=== PATIENT | female | born 1995 | race African-American/Black ===

== ENCOUNTER → 2019-02-08 | Outpatient (REF) | payer OTHER ==
[~2019-02-08] MED LIST: LEVO200T4
== END ==
LOC: M LAB REF 17:25
PROVIDERS: ATTEND Physician Assistant
DX: J02.9 Acute pharyngitis, unspecified (principal)

== ENCOUNTER 2019-02-09 00:38 | Emergency (ER) | payer OTHER ==
[~2019-02-09] VITALS: Ht 180.3 cm; Wt 168.5 kg
[2019-02-09] MEDS ORDERED: LEVO200T4 (00:53)
[2019-02-09 01:17] LABS: BASO % 0.4 % (0.0-1.0); HEMATOCRIT 39.3 % (36.0-47.0); HEMOGLOBIN 12.9 g/dl (12.0-15.5); LYMPH # 0.9 10^3/uL (1.5-6.5); LYMPH % 16.4 % (24.0-44.0); MEAN CORPUSCULAR HEMOGLOBIN 29.7 pg (27.0-33.0); MEAN CORPUSCULAR HGB CONC 32.8 g/dl (32.0-36.5); MEAN CORPUSCULAR VOLUME 90.6 fl (80.0-96.0); MONO # 0.4 10^3/uL (0.0-0.8); MONO % 7.4 % (0.0-5.0); NEUTROPHILS # 4.3 10^3/uL (1.8-7.7); NEUTROPHILS % 75.4 % (36.0-66.0); PLATELET COUNT, AUTOMATED 297 10^3/uL (150-450); RED BLOOD COUNT 4.34 10^6/uL (4.00-5.40); WHITE BLOOD COUNT 5.7 10^3/uL (4.0-10.0)
[2019-02-09 01:32] LABS: PROTHROMBIN TIME 13.3 SECONDS (12.1-14.4)
[2019-02-09 01:39] LABS: ALBUMIN 3.4 GM/DL (3.2-5.2); ALT/SGPT 16 U/L (12-78); BILIRUBIN,DIRECT < 0.1 MG/DL (0.0-0.2); BILIRUBIN,TOTAL 0.2 MG/DL (0.2-1.0); BLOOD UREA NITROGEN 8 MG/DL (7-18); CALCIUM LEVEL 8.1 MG/DL (8.5-10.1); CARBON DIOXIDE LEVEL 22 MEQ/L (21-32); CHLORIDE LEVEL 110 MEQ/L (98-107); CREATININE FOR GFR 0.57 MG/DL (0.55-1.30); GLOMERULAR FILTRATION RATE > 60.0 (>60); GLUCOSE, FASTING 116 MG/DL (70-100); POTASSIUM SERUM 4.1 MEQ/L (3.5-5.1); SODIUM LEVEL 140 MEQ/L (136-145)
[2019-02-09 01:40] LABS: ACETAMINOPHEN LEVEL < 2.0 UG/ML (10.0-30.0)
[2019-02-09] MEDS ORDERED: LACTULOSE 20 GM/30 ML SYRUP UD PO ONE (01:45)
[2019-02-09 02:43] VITALS: BP 158/86
== END 2019-02-09 02:45 | disposition home or self-care (01) ==
LOC: M ED 00:38
DX: T39.1X1A Poisoning by 4-Aminophenol derivatives, accidental (unintentional), initial encounter (principal); E66.9 Obesity, unspecified; E03.9 Hypothyroidism, unspecified; X58.XXXA Exposure to other specified factors, initial encounter; Y93.9 Activity, unspecified; Y92.9 Unspecified place or not applicable; Y99.9 Unspecified external cause status; Z79.899 Other long term (current) drug therapy
CPT/HCPCS: 36415; 80048; 80076; 82140; 85025; 85610; 85730; 99284; G0480

== ENCOUNTER 2019-03-10 19:41 | Emergency (ER) | payer OTHER ==
[~2019-03-10] VITALS: Ht 182.9 cm; Wt 168.2 kg
[2019-03-10] MEDS ORDERED: OYST1TAB PO (19:47)
[2019-03-10 21:15] LABS: BASO # 0.1 10^3/uL (0.0-0.2); EOS # 0.3 10^3/uL (0.0-0.50); EOS % 4.2 % (0.0-3.0); HEMATOCRIT 41.4 % (36.0-47.0); HEMOGLOBIN 13.7 g/dl (12.0-15.5); LYMPH # 3.3 10^3/uL (1.5-6.5); LYMPH % 46.1 % (24.0-44.0); MEAN CORPUSCULAR HEMOGLOBIN 29.6 pg (27.0-33.0); MEAN CORPUSCULAR HGB CONC 33.1 g/dl (32.0-36.5); MEAN CORPUSCULAR VOLUME 89.4 fl (80.0-96.0); MONO # 0.5 10^3/uL (0.0-0.8); MONO % 6.7 % (0.0-5.0); NEUTROPHILS % 41.9 % (36.0-66.0); PLATELET COUNT, AUTOMATED 310 10^3/uL (150-450); RED BLOOD COUNT 4.63 10^6/uL (4.00-5.40); WHITE BLOOD COUNT 7.1 10^3/uL (4.0-10.0)
[2019-03-10 21:54] LABS: BLOOD UREA NITROGEN 9 MG/DL (7-18); CALCIUM LEVEL 8.6 MG/DL (8.5-10.1); CARBON DIOXIDE LEVEL 24 MEQ/L (21-32); CHLORIDE LEVEL 107 MEQ/L (98-107); CREATININE FOR GFR 0.85 MG/DL (0.55-1.30); FREE T3 1.7 PG/ML (2.2-4.0); FREE T4 0.58 NG/DL (0.76-1.46); GLOMERULAR FILTRATION RATE > 60.0 (>60); GLUCOSE, FASTING 88 MG/DL (70-100); POTASSIUM SERUM 4.2 MEQ/L (3.5-5.1); SODIUM LEVEL 138 MEQ/L (136-145); THYROXINE (T4) 5.4 UG/DL (4.5-12.0)
[2019-03-10] MEDS ORDERED: ISOVUE-370 76% 100ML VIAL (Q9967) As Ordered ONE (21:58)
--- NOTE | 2019-03-10 22:39 | REPVR ---
EXAM: CT Neck With Contrast EXAM DATE/TIME: 03/10/2019 10:06 PM CLINICAL HISTORY: 24 years old, female; Other: Paresthesia right ue; Additional info: Paresthesia right ue, thyroidectomy 11/2018 TECHNIQUE: Imaging protocol: Axial computed tomography images of the neck with intravenous contrast. Coronal and sagittal reformatted images were created and reviewed. Radiation optimization: All CT scans at this facility use at least one of these dose optimization techniques: automated exposure control; mA and/or kV adjustment per patient size (includes targeted exams where dose is matched to clinical indication); or iterative reconstruction. Contrast material: ISOVUE 370; Contrast volume: 75 ml; Contrast route: IV COMPARISON: No relevant prior studies available. FINDINGS: Exam is limited due to patient body habitus and resultant poor resolution. No focal subcutaneous soft tissue swelling. Parapharyngeal and posterior nasopharynx soft tissue planes are symmetric. No asymmetric enlargement or inflammation of the pharyngeal tonsils. Vascular structures of the neck enhance normally. Prominent bilateral cervical chain and jugulodigastric lymph nodes. Muscles of mastication and strap muscles of the neck appear normal. Parotid and minor salivary glands are unremarkable. Floor of the mouth and tongue base soft tissues appear normal. Laryngeal structures appear normal. Thyroid gland is diminutive consistent with surgical history. Lung apices are normal. Bony structures are unremarkable for age. IMPRESSION: No explanation for paresthesias. No inflammatory process. Prominent cervical chain lymph nodes that are nonspecific but could represent cervical lymphadenitis. No suppurative node Electronically signed by: Nasim Rios On 03/10/2019 22:39:17 PM
[2019-03-10 23:23] VITALS: BP 148/68
[2019-03-12 09:49] LABS: TOTAL T3 54.9 NG/DL (60.0-181.0)
== END 2019-03-10 23:23 | disposition home or self-care (01) ==
LOC: M ED 19:41
DX: R94.6 Abnormal results of thyroid function studies (principal); R20.2 Paresthesia of skin; Z90.89 Acquired absence of other organs; E89.0 Postprocedural hypothyroidism; Z88.1 Allergy status to other antibiotic agents; Z79.899 Other long term (current) drug therapy
CPT/HCPCS: 70491; 80048; 83605; 83970; 84439; 84443; 84481; 84702; 85025; 99284; Q9967

== ENCOUNTER 2019-05-01 00:53 | Emergency (ER) | payer OTHER ==
[~2019-05-01 00:53] MED LIST changes: +OYST1TAB PO
[2019-05-01 01:24] LABS: BASO # 0.1 10^3/uL (0.0-0.2); BASO % 1.1 % (0.0-1.0); EOS # 0.2 10^3/uL (0.0-0.50); EOS % 3.5 % (0.0-3.0); HEMATOCRIT 39.5 % (36.0-47.0); HEMOGLOBIN 12.9 g/dl (12.0-15.5); LYMPH # 2.7 10^3/uL (1.5-6.5); LYMPH % 41.7 % (24.0-44.0); MEAN CORPUSCULAR HEMOGLOBIN 29.9 pg (27.0-33.0); MEAN CORPUSCULAR HGB CONC 32.7 g/dl (32.0-36.5); MEAN CORPUSCULAR VOLUME 91.6 fl (80.0-96.0); MONO # 0.4 10^3/uL (0.0-0.8); MONO % 6.6 % (0.0-5.0); NEUTROPHILS # 3.1 10^3/uL (1.8-7.7); NEUTROPHILS % 47.1 % (36.0-66.0); PLATELET COUNT, AUTOMATED 270 10^3/uL (150-450); RED BLOOD COUNT 4.31 10^6/uL (4.00-5.40); WHITE BLOOD COUNT 6.5 10^3/uL (4.0-10.0)
[2019-05-01 02:03] LABS: BLOOD UREA NITROGEN 9 MG/DL (7-18); CALCIUM LEVEL 8.1 MG/DL (8.5-10.1); CARBON DIOXIDE LEVEL 27 MEQ/L (21-32); CHLORIDE LEVEL 109 MEQ/L (98-107); CREATININE FOR GFR 0.97 MG/DL (0.55-1.30); GLOMERULAR FILTRATION RATE > 60.0 (>60); GLUCOSE, FASTING 97 MG/DL (70-100); HCG, SERUM QUANTITATIVE < 1.0 MIU/ML; POTASSIUM SERUM 5.2 MEQ/L (3.5-5.1); SODIUM LEVEL 138 MEQ/L (136-145)
[2019-05-01] MEDS ORDERED: METAL LOCK LOOP XX ONE (03:37)
[2019-05-01 03:48] LABS: CK-MB VALUE MASS 1.7 NG/ML (<3.6); CPK CREATINE PHOSPHOKINASE 330 U/L (26-192); MB/CK RELATIVE INDEX 0.52 (< OR =4); TROPONIN I < 0.02 NG/ML (< 0.10)
[2019-05-01 04:17] VITALS: BP 111/62
--- NOTE | 2019-05-01 07:21 | REP ---
Portable chest, 02:29 a.m., single AP view with the the patient upright: There are no comparisons. The lung pathak are clear. The cardiac size is normal. The thony, mediastinum, and skeletal structures are unremarkable. Impression: Negative portable chest. Electronically Signed by Choco Ladd MD 05/01/2019 07:13 A
--- NOTE | 2019-05-01 10:35 | ECGEPIP ---
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
[2019-08-21] MEDS ORDERED: LEVO112T2 PO (22:24)
[2019-08-22] MEDS ORDERED: OMEP40CA97 PO (05:49)
== END 2019-05-01 04:18 | disposition home or self-care (01) ==
LOC: M ED 00:53
DX: R07.89 Other chest pain (principal); R06.02 Shortness of breath; E89.0 Postprocedural hypothyroidism; Z88.1 Allergy status to other antibiotic agents; Z79.899 Other long term (current) drug therapy
CPT/HCPCS: 71045; 80048; 82550; 82553; 84439; 84443; 84484; 84702; 85025; 93005; 99284; G0463

== ENCOUNTER → 2019-06-06 | Outpatient (CLI) | payer OTHER ==
[~2019-06-06] MED LIST changes: +B-122500 PO; +FLIN1CHW PO; +LEVO112T2 PO; +OMEP40CA97 PO
[2019-06-06 13:44] LABS: BASO # 0.1 10^3/uL (0.0-0.2); BASO % 0.9 % (0.0-1.0); EOS # 0.2 10^3/uL (0.0-0.5); EOS % 3.9 % (0.0-3.0); HEMATOCRIT 38.2 % (36.0-47.0); HEMOGLOBIN 12.5 g/dl (12.0-15.5); LYMPH # 2.2 10^3/uL (1.5-5.0); LYMPH % 41.2 % (24.0-44.0); MEAN CORPUSCULAR HEMOGLOBIN 29.6 pg (27.0-33.0); MEAN CORPUSCULAR HGB CONC 32.7 g/dl (32.0-36.5); MEAN CORPUSCULAR VOLUME 90.3 fl (80.0-96.0); MONO # 0.4 10^3/uL (0.0-0.8); MONO % 8.3 % (0.0-5.0); NEUTROPHILS # 2.4 10^3/uL (1.5-8.5); NEUTROPHILS % 45.7 % (36.0-66.0); PLATELET COUNT, AUTOMATED 313 10^3/uL (150-450); RED BLOOD COUNT 4.23 10^6/uL (4.00-5.40); WHITE BLOOD COUNT 5.3 10^3/uL (4.0-10.0)
[2019-06-06 14:35] LABS: ALBUMIN 3.4 GM/DL (3.2-5.2); ALT/SGPT 14 U/L (12-78); BILIRUBIN,TOTAL 0.3 MG/DL (0.2-1.0); BLOOD UREA NITROGEN 8 MG/DL (7-18); CARBON DIOXIDE LEVEL 22 MEQ/L (21-32); CHLORIDE LEVEL 108 MEQ/L (98-107); CREATININE FOR GFR 0.92 MG/DL (0.55-1.30); GLOMERULAR FILTRATION RATE > 60.0 (>60); GLUCOSE, FASTING 82 MG/DL (70-100); POTASSIUM SERUM 4.6 MEQ/L (3.5-5.1); SODIUM LEVEL 140 MEQ/L (136-145); TOTAL PROTEIN 7.2 GM/DL (6.4-8.2)
[2019-06-06 14:44] LABS: HEMOGLOBIN A1c 4.8 %
== END ==
LOC: M WUC 09:40
PROVIDERS: ATTEND Surgery
DX: Z01.812 Encounter for preprocedural laboratory examination (principal)

== ENCOUNTER 2019-08-05 00:13 | Emergency (ER) | payer OTHER ==
[~2019-08-05] VITALS: Ht 182.9 cm; Wt 165.4 kg
[~2019-08-05 00:13] MED LIST changes: -B-122500 PO; -FLIN1CHW PO; -LEVO112T2 PO; -OMEP40CA97 PO
[2019-08-05] MEDS ORDERED: B-122500 PO (00:18)
[2019-08-05] MEDS ORDERED: FLIN1CHW PO (00:18)
[2019-08-05 01:13] LABS: BASO # 0.1 10^3/uL (0.0-0.2); EOS # 0.2 10^3/uL (0.0-0.5); EOS % 4.3 % (0.0-3.0); HEMATOCRIT 41.6 % (36.0-47.0); HEMOGLOBIN 13.3 g/dl (12.0-15.5); LYMPH # 2.8 10^3/uL (1.5-5.0); LYMPH % 54.7 % (24.0-44.0); MEAN CORPUSCULAR HEMOGLOBIN 29.2 pg (27.0-33.0); MEAN CORPUSCULAR VOLUME 91.2 fl (80.0-96.0); MONO # 0.2 10^3/uL (0.0-0.8); MONO % 4.3 % (0.0-5.0); NEUTROPHILS # 1.8 10^3/uL (1.5-8.5); NEUTROPHILS % 35.7 % (36.0-66.0); PLATELET COUNT, AUTOMATED 314 10^3/uL (150-450); RED BLOOD COUNT 4.56 10^6/uL (4.00-5.40); WHITE BLOOD COUNT 5.1 10^3/uL (4.0-10.0)
[2019-08-05 01:31] LABS: HCG, SERUM QUALITATIVE NEGATIVE (NEGATIVE)
[2019-08-05 01:32] LABS: ALBUMIN 3.4 GM/DL (3.2-5.2); ALT/SGPT 19 U/L (12-78); AMYLASE 55 U/L (25-115); BILIRUBIN,DIRECT < 0.1 MG/DL (0.0-0.2); BILIRUBIN,TOTAL 0.2 MG/DL (0.2-1.0); BLOOD UREA NITROGEN 10 MG/DL (7-18); CALCIUM LEVEL 7.9 MG/DL (8.5-10.1); CARBON DIOXIDE LEVEL 23 MEQ/L (21-32); CHLORIDE LEVEL 111 MEQ/L (98-107); CREATININE FOR GFR 0.72 MG/DL (0.55-1.30); GLOMERULAR FILTRATION RATE > 60.0 (>60); GLUCOSE, FASTING 104 MG/DL (70-100); LIPASE 91 U/L (73-393); POTASSIUM SERUM 3.8 MEQ/L (3.5-5.1); SODIUM LEVEL 142 MEQ/L (136-145); TOTAL PROTEIN 7.4 GM/DL (6.4-8.2)
[2019-08-05] MEDS ORDERED: ONDANSETRON 4MG/2ML VIAL (J2405) As Ordered ONE (02:01)
[2019-08-05] MEDS ORDERED: MORPHINE 4 MG/ML 1ML VIAL/SYRINGE (J2270) As Ordered ONE ×2 (02:02→03:43)
[2019-08-05] MEDS: ONDANSETRON 4MG/2ML VIAL (J2405) IV ONE (02:06)
[2019-08-05] MEDS: MORPHINE 4 MG/ML 1ML VIAL/SYRINGE (J2270) IV ONE ×2 (02:06→04:05)
[2019-08-05] MEDS ORDERED: ISOVUE-370 76% 100ML VIAL (Q9967) As Ordered ONE (02:12)
--- NOTE | 2019-08-05 03:22 | REPVR ---
PROCEDURE INFORMATION: Exam: CT Abdomen And Pelvis With Contrast Exam date and time: 08/05/2019 2:26 AM Age: 24 years old Clinical history: Abdominal pain; Localized; Right; Additional info: R pain with kehr's sign TECHNIQUE: Imaging protocol: Computed tomography of the abdomen and pelvis with intravenous contrast. Radiation optimization: All CT scans at this facility use at least one of these dose optimization techniques: automated exposure control; mA and/or kV adjustment per patient size (includes targeted exams where dose is matched to clinical indication); or iterative reconstruction. Contrast material: ISOVUE 370; Contrast volume: 100 ml; Contrast route: IV; COMPARISON: No relevant prior studies available. FINDINGS: Liver: Normal. No mass. Gallbladder and bile ducts: Normal. No calcified stones. No ductal dilation. Pancreas: Normal. No ductal dilation. Spleen: Normal. No splenomegaly. Adrenals: Normal. No mass. Kidneys and ureters: Normal. No hydronephrosis. Stomach and bowel: Changes from prior bariatric surgery are noted. No small bowel structure or inflammatory process.There is mild colonic diverticulosis without evidence of diverticulitis. Appendix: No evidence of appendicitis. Intraperitoneal space: Several foci of pneumoperitoneum are noted in the upper abdomen, mainly in the left upper quadrant. Mild free fluid in the pelvis. No loculated abscess is seen. Trace perihepatic free fluid extending into the left pericolic gutter. Mild stranding and edema in the upper abdominal mesentery. Vasculature: Unremarkable. No abdominal aortic aneurysm. Lymph nodes: Unremarkable. No enlarged lymph nodes. Bladder: Unremarkable as visualized. Reproductive: Unremarkable as visualized. Bones/joints: Unremarkable. No acute fracture. Soft tissues: Unremarkable. IMPRESSION: 1. Mild pneumoperitoneum and mild free fluid of uncertain etiology. A definite perforation or source of pneumoperitoneum is not identified. No drainable abscess. 2. Colonic diverticulosis without evidence of diverticulitis. 3. Changes of prior bariatric surgery. No bowel obstruction or inflammatory process. THIS REPORT CONTAINS FINDINGS THAT MAY BE CRITICAL TO PATIENT CARE. The findings were verbally communicated via telephone conference with LES GREENE at 3:21 AM EST on 08/05/2019. The findings were acknowledged and understood. Electronically signed by: Silverio Larkin On 08/05/2019 03:21:56 AM
[2019-08-05] MEDS ORDERED: METOCLOPRAMIDE INJ 10MG/2ML VIAL (J2765) As Ordered ONE (03:43)
[2019-08-05] MEDS: METOCLOPRAMIDE INJ 10MG/2ML VIAL (J2765) IV ONE (03:50)
[2019-08-05] MEDS: CIPROFLOXACIN 400 MG in IV 1 EA IV ONE (04:10)
[2019-08-05] MEDS: metroNIDAZOLE 500 MG in IV 1 EA IV ONE (04:10)
[2019-08-05 04:43] LABS: APPEARANCE, URINE CLEAR (CLEAR); BACTERIA, URINE AUTO NEGATIVE (NEGATIVE); BILIRUBIN, URINE AUTO NEGATIVE (NEGATIVE); BLOOD, URINE BLOOD 1+ (NEGATIVE); COLOR, URINE YELLOW (YELLOW); GLUCOSE, URINE (UA) AUTO NEGATIVE (NEGATIVE); KETONE, URINE AUTO TRACE mg/dL (NEGATIVE); LEUKOCYTE ESTERASE, URINE AUTO NEGATIVE (NEGATIVE); NITRITE, URINE AUTO NEGATIVE (NEGATIVE); PROTEIN, URINE AUTO NEGATIVE (NEGATIVE); RBC, URINE AUTO 2 /HPF (0-3); SPECIFIC GRAVITY URINE AUTO 1.043 (1.002-1.035); SQUAMOUS EPITHELIAL CELL UR AU 2 /HPF (0-6); UROBILINOGEN, URINE AUTO 0.2 mg/dL (0.0-2.0); WBC, URINE AUTO 2 /HPF (0-3)
[2019-08-05] MEDS: ACETAMINOPHEN 500 MG TAB PO ONE (05:00)
[2019-08-05 05:26] VITALS: BP 133/78
== END 2019-08-05 05:29 | disposition short-term general hospital (02) ==
LOC: M ED 00:13
DX: K66.8 Other specified disorders of peritoneum (principal); J95.89 Other postprocedural complications and disorders of respiratory system, not elsewhere classified; R10.9 Unspecified abdominal pain; E03.9 Hypothyroidism, unspecified; Z79.890 Hormone replacement therapy; Z79.899 Other long term (current) drug therapy; Z98.0 Intestinal bypass and anastomosis status; Z88.1 Allergy status to other antibiotic agents
CPT/HCPCS: 74177; 80053; 81001; 82150; 82248; 83690; 84703; 85025; 87086; 99284; J0744; J2270; J2405; J2765; Q9967

== ENCOUNTER 2019-09-21 22:41 | Emergency (ER) | payer OTHER ==
[~2019-09-21] VITALS: Ht 180.3 cm; Wt 163.7 kg
[~2019-09-21 22:41] MED LIST changes: +B-122500 PO; +FLIN1CHW PO; +LEVO112T2 PO; +OMEP40CA97 PO
[2019-09-21 23:49] VITALS: BP 141/82
== END 2019-09-21 23:51 | disposition home or self-care (01) ==
LOC: M ED 22:41
DX: F33.9 Major depressive disorder, recurrent, unspecified (principal); E03.9 Hypothyroidism, unspecified; Z79.899 Other long term (current) drug therapy; Z79.890 Hormone replacement therapy; Z88.1 Allergy status to other antibiotic agents

== ENCOUNTER → 2019-10-25 | Outpatient (CLI) | payer OTHER ==
[2019-10-25 20:33] LABS: FREE T4 1.17 NG/DL (0.76-1.46); THYROID STIMULATING HORMONE 7.07 uIU/ML (0.358-3.740)
== END ==
LOC: M WUC 15:50
PROVIDERS: ATTEND Physician Assistant
DX: E89.0 Postprocedural hypothyroidism (principal)

== ENCOUNTER → 2020-03-13 | Outpatient (CLI) | payer OTHER ==
[2020-03-13 16:34] LABS: HCG, SERUM QUALITATIVE POSITIVE (NEGATIVE)
== END ==
LOC: M WUC 10:48
PROVIDERS: ATTEND Student in an Organized Health Care Education/Training Program
DX: O20.0 Threatened abortion (principal)

== ENCOUNTER 2020-10-27 21:05 | Emergency (ER) | payer OTHER ==
[~2020-10-27] VITALS: Ht 180.3 cm; Wt 167.5 kg
--- OUTSIDE RECORDS SUMMARY | 2020-10-27 21:17 | CCD ---
Author Author [facility] Organization [facility] Address Unknown Phone Unavailable Care Team Providers Care Associate Account Manager Name Role Phone ScnishaoMaxby PA Unavailable Unavailable Scordo, M Pretty PA Unavailable Unavailable Scordo, M Pretty PA Unavailable Unavailable Scordo, M Pretty PA Unavailable Unavailable Scordo, M Pretty PA Unavailable Unavailable Scordo, M Pretty PA Unavailable Unavailable Scordo, M Pretty PA Unavailable Unavailable Scordo, M Pretty PA Unavailable Unavailable Scordo, M Pretty PA Unavailable Unavailable Scordo, M Pretty PA Unavailable Unavailable Scordo, M Pretty PA Unavailable Unavailable Scordo, M Pretty PA Unavailable Unavailable Scordo, M Pretty PA Unavailable Unavailable Scordo, M Pretty PA Unavailable Unavailable Scordo, M Pretty PA Unavailable Unavailable Scordo, M Pretty PA Unavailable Unavailable Scordo, M Pretty PA Unavailable Unavailable Scordo, M Pretty PA Unavailable Unavailable Scordo, M Pretty PA Unavailable Unavailable Scordo, M Pretty PA Unavailable Unavailable Scordo, M Pretty PA Unavailable Unavailable Scordo, M Pretty PA Unavailable Unavailable Scordo, M Pretty PA Unavailable Unavailable Scordo, M Pretty PA Unavailable Unavailable Scordo, M Pretty PA Unavailable Unavailable Scordo, M Pretty PA Unavailable Unavailable Scordo, M Pretty PA Unavailable Unavailable Scordo, M Pretty PA Unavailable Unavailable Scordo, M Pretty PA Unavailable Unavailable Scordo, M Pretty PA Unavailable Unavailable Scordo, M Pretty PA Unavailable Unavailable Scordo, M Pretty PA Unavailable Unavailable Scordo, M Pretty PA Unavailable Unavailable Scordo, M Pretty PA Unavailable Unavailable Scordo, M Pretty PA Unavailable Unavailable Scordo, M Pretty PA Unavailable Unavailable Scordo, M Pretty PA Unavailable Unavailable Scordo, M Pretty PA Unavailable Unavailable Scordo, M Pretty PA Unavailable Unavailable Scordo, M Pretty PA Unavailable Unavailable Scordo, M Pretty PA Unavailable Unavailable Scordo, M Pretty PA Unavailable Unavailable Scordo, M Pretty PA Unavailable Unavailable Platt, R Vimal PA Unavailable Unavailable Platt, R Vimal PA Unavailable Platt, R Vimal PA Unavailable Platt, R Vimal PA Unavailable Platt, R Vimal PA Unavailable Platt, R Vimal PA Unavailable Platt, R Vimal PA Unavailable Platt, R Vimal PA Unavailable Platt, R Vimal PA Unavailable MARAVEANALI, Alden CAN MD Unavailable Unavailable MARAVEGIASAlden MD Unavailable Unavailable MARAVEGIAAlden Melo MD Unavailable Unavailable MARAVEGIAAlden Melo MD Unavailable Unavailable MARAVEGIAAlden Melo MD Unavailable Unavailable MARAVEGIAAlden Melo MD Unavailable Unavailable MARAVEGIAAlden Melo MD Unavailable Unavailable MARAVEGIAAlden Melo MD Unavailable Unavailable MARAVEAlden BRIONES MD Unavailable Unavailable MARAVEAlden BRIONES MD Unavailable Unavailable MARAVEAlden BRIONES MD Unavailable Unavailable MARAVEGIAAlden Melo MD Unavailable Unavailable MARAVEGIAAlden Melo MD Unavailable Unavailable MARAVEAlden BRIONES MD Unavailable Unavailable Alon, Ralph PA Unavailable Unavailable PHYSICIAN, PHYSICIAN ER Unavailable Unavailable Fredis, F Juan PA Unavailable Unavailable Fredis, F Juan PA Unavailable Unavailable Hill Af[place], F Juan PA Unavailable Unavailable Fredis, F Juan PA Unavailable Unavailable Fredis, F Juan PA Unavailable Unavailable Fredis, F Juan PA Unavailable Unavailable [place], F Juan PA Unavailable Unavailable Fredis, F Juan PA Unavailable Unavailable [place], F Juan PA Unavailable Unavailable [place], F Juan PA Unavailable Unavailable ALON, RALPH PA Unavailable Unavailable ALON, RALPH PA Unavailable Unavailable ALON, RALPH PA Unavailable Unavailable ALON, RALPH PA Unavailable Unavailable ALON, RALPH PA Unavailable Unavailable ALON, RALPH PA Unavailable Unavailable ALON, RALPH PA Unavailable Unavailable ENO, C ONIEL VASQUEZ Unavailable Unavailable NEO, C ONIEL VASQUEZ Unavailable Unavailable NEO, C ONIEL VASQUEZ Unavailable Unavailable NEO, C ONIEL VASQUEZ Unavailable Unavailable NEO, C ONIEL VASQUEZ Unavailable Unavailable NEO, C ONIEL VASQUEZ Unavailable Unavailable NEO, C ONIEL VASQUEZ Unavailable Unavailable NEO, C ONIEL VASQUEZ Unavailable Unavailable NEO, C ONIEL VASQUEZ Unavailable Unavailable NEO, C ONIEL VASQUEZ Unavailable Unavailable NEO, C ONIEL VASQUEZ Unavailable Unavailable NEO, C ONIEL VASQUEZ Unavailable Unavailable NEO, C ONIEL VASQUEZ Unavailable Unavailable NEO, C ONIEL VASQUEZ Unavailable Unavailable NEO, C ONIEL VASQUEZ Unavailable Unavailable NEO, C ONIEL VASQUEZ Unavailable Unavailable NEO, C ONIEL VASQUEZ Unavailable Unavailable NEO, C ONIEL VASQUEZ Unavailable Unavailable NEO, C ONIEL VASQUEZ Unavailable Unavailable NEO, C ONIEL VASQUEZ Unavailable Unavailable NEO, C OINEL VASQUEZ Unavailable Unavailable NEO, C ONIEL VASQUEZ Unavailable Unavailable NEO, C ONIEL VASQUEZ Unavailable Unavailable NEO, C ONIEL VASQUEZ Unavailable Unavailable NEO, C ONIEL VASQUEZ Unavailable Unavailable NEO, C ONIEL VASQUEZ Unavailable Unavailable NEO, C ONIEL VASQUEZ Unavailable Unavailable NEO, C ONIEL VASQUEZ Unavailable Unavailable NEO, C ONIEL VASQUEZ Unavailable Unavailable NEO, C ONIEL VASQUEZ Unavailable Unavailable NEO, C ONIEL VASQUEZ Unavailable Unavailable NEO, C ONIEL VASQUEZ Unavailable Unavailable NEO, C ONIEL VASQUEZ Unavailable Unavailable NEO, C ONIEL VASQUEZ Unavailable Unavailable NEO, C ONIEL VASQUEZ Unavailable Unavailable NEO, C ONIEL VASQUEZ Unavailable Unavailable NEO, C ONIEL VASQUEZ Unavailable Unavailable NEO, C ONIEL VASQUEZ Unavailable Unavailable NEO, C ONIEL VASQUEZ Unavailable Unavailable NEO, C ONIEL VASQUEZ Unavailable Unavailable NEO, C ONIEL VASQUEZ Unavailable Unavailable NEO, C ONIEL VASQUEZ Unavailable Unavailable NEO, C ONIEL VASQUEZ Unavailable Unavailable NEO, C ONIEL VAQSUEZ Unavailable Unavailable NEO, C ONIEL VASQUEZ Unavailable Unavailable NEO, C ONIEL VASQUEZ Unavailable Unavailable NEO, C ONEIL VASQUEZ Unavailable Unavailable NEO, C ONIEL VASQUEZ Unavailable Unavailable NEO, C ONIEL VASQUEZ Unavailable Unavailable NEO, C ONIEL VASQUEZ Unavailable Unavailable NEO, C ONIEL VASQUEZ Unavailable Unavailable NEO, C ONIEL VASQUEZ Unavailable Unavailable NEO, C ONIEL VASQUEZ Unavailable Unavailable NEO, C ONIEL VASQUEZ Unavailable Unavailable NEO, C ONIEL VASQUEZ Unavailable Unavailable NEO, C ONIEL VASQUEZ Unavailable Unavailable NEO, C ONIEL VASQUEZ Unavailable Unavailable NEO, C ONIEL VASQUEZ Unavailable Unavailable NEO, C ONIEL VASQUEZ Unavailable Unavailable NEO, C ONIEL VASQUEZ Unavailable Unavailable PHYSICIAN, ER Unavailable Unavailable DAMION, TERESA Unavailable Unavailable GILCHRIEST, JANES Unavailable Unavailable GILCHRIEST, JANES Unavailable Unavailable Scordo, M Pretty PA Unavailable Unavailable Scordo, M Pretty PA Unavailable Unavailable Scordo, M Pretty PA Unavailable Unavailable Scordo, M Pretty PA Unavailable Unavailable Scordo, M Pretty PA Unavailable Unavailable Scordo, M Pretty PA Unavailable Unavailable Scordo, M Pretty PA Unavailable Unavailable Scordo, M Pretty PA Unavailable Unavailable Scordo, M Pretty PA Unavailable Unavailable Scordo, M Pretty PA Unavailable Unavailable Scordo, M Pretty PA Unavailable Unavailable Scordo, M Pretty PA Unavailable Unavailable Scordo, M Pretty PA Unavailable Unavailable Scordo, M Pretty PA Unavailable Unavailable Scordo, M Pretty PA Unavailable Unavailable Scordo, M Pretty PA Unavailable Unavailable Scordo, M Pretty PA Unavailable Unavailable Scordo, M Pretty PA Unavailable Unavailable Scordo, M Pretty PA Unavailable Unavailable Scordo, M Pretty PA Unavailable Unavailable Scordo, M Pretty PA Unavailable Unavailable Scordo, M Pretty PA Unavailable Unavailable Scordo, M Pretty PA Unavailable Unavailable Scordo, M Pretty PA Unavailable Unavailable Scordo, M Pretty PA Unavailable Unavailable Scordo, M Pretty PA Unavailable Unavailable Scordo, M Pretty PA Unavailable Unavailable Scordo, M Pretty PA Unavailable Unavailable Scordo, M Pretty PA Unavailable Unavailable Scordo, M Pretty PA Unavailable Unavailable Scordo, M Pretty PA Unavailable Unavailable Scordo, M Pretty PA Unavailable Unavailable Scordo, M Pretty PA Unavailable Unavailable Scordo, M Pretty PA Unavailable Unavailable Scordo, M Pretty PA Unavailable Unavailable Scordo, M Pretty PA Unavailable Unavailable Scordo, M Pretty PA Unavailable Unavailable Scordo, M Pretty PA Unavailable Unavailable Scordo, M Pretty PA Unavailable Unavailable Scordo, M Pretty PA Unavailable Unavailable Scordo, M Pretty PA Unavailable Unavailable Scordo, M Pretty PA Unavailable Unavailable Scordo, M Pretty PA Unavailable Unavailable TURRIN, JULIA Unavailable Unavailable TURRIN, JULIA Unavailable Unavailable TURRIN, JULIA Unavailable Unavailable TURRIN, JULIA Unavailable Unavailable FLORY, A MISAEL PA Unavailable Unavailable FLORY, A MISAEL PA Unavailable Unavailable FLORY, A MISAEL PA Unavailable Unavailable FLORY, A MISAEL PA Unavailable Unavailable FLORY, A MISAEL PA Unavailable Unavailable FLORY, A MISAEL PA Unavailable Unavailable FLORY, A MISAEL PA Unavailable Unavailable FLORY, A MISAEL PA Unavailable Unavailable FLORY, A MISAEL PA Unavailable Unavailable FLORY, A MISAEL PA Unavailable Unavailable FLORY, A MISAEL PA Unavailable Unavailable FLORY, A MISAEL PA Unavailable Unavailable FLORY, A MISAEL PA Unavailable Unavailable BROWN, L MOISES Unavailable Unavailable CONNOR, ANITA Unavailable Unavailable Re-disclosure Warning The records that you are about to access may contain information from federally-assisted alcohol or drug abuse programs. If such information is present, then the following federally mandated warning applies: This information has been disclosed to you from records protected by federal confidentiality rules (42 CFR part 2). The federal rules prohibit you from making any further disclosure of this information unless further disclosure is expressly permitted by the written consent of the person to whom it pertains or as otherwise permitted by 42 CFR part 2. A general authorization for the release of medical or other information is NOT sufficient for this purpose. The Federal rules restrict any use of the information to criminally investigate or prosecute any alcohol or drug abuse patient.The records that you are about to access may contain highly sensitive health information, the redisclosure of which is protected by Article 27-F of the [facility] Public Health law. If you continue you may have access to information: Regarding HIV / AIDS; Provided by facilities licensed or operated by the [facility] Office of Mental Health; or Provided by the [facility] Office for People With Developmental Disabilities. If such information is present, then the following [facility] mandated warning applies: This information has been disclosed to you from confidential records which are protected by state law. State law prohibits you from making any further disclosure of this information without the specific written consent of the person to whom it pertains, or as otherwise permitted by law. Any unauthorized further disclosure in violation of state law may result in a fine or long term sentence or both. A general authorization for the release of medical or other information is NOT sufficient authorization for further disc losure. Allergies and Adverse Reactions Type Description Substance Reaction Status Data Source(s ) Drug allergy Drug allergy cephalexin (From Keflex) [facility] Drug allergy Drug allergy No Known Allergies [facility] Family History Family Member Name Family Member Gender Family Member Status Date o f Status Description Data Source(s) Unknown Unknown Problem [facility] Encounters Encounter Providers Location Date Indications Data Source(s ) Emergency Attender: JULIA LOFTONConsultant: Pretty Rodgers 04/02/2020 08:56:00 PM EDT - 04/03/2020 01:23:00 AM EDT [facility] Patient discharged. Outpatient CPSCAORT-LABEJN 03/21/2020 09:38:00 AM EDT [facility] Emergency Attender: Vimal Platt PAAttender: Vimal TURNER ED-ED 03/20/2020 09:26:00 PM EDT - 03/21/2020 01:01:00 AM EDT RT SIDE PAIN [facility] RT SIDE PAIN Patient discharged. Emergency Attender: ER PHYSICIAN 03/16/2020 07:35:59 PM E DT [facility] Emergency Attender: JANES Concepcionender: ER PHYSICIAN 03/16/2020 06:23:00 PM EDT - 03/16/2020 09:56:00 PM EDT OVARIAN CYST PAIN [facility] OVARIAN CYST PAIN Patient discharged. Emergency Attender: ER PHYSICIAN 03/16/2020 06:23:00 PM E DT [facility] Emergency Attender: Ralph Martinez tender: RALPH CHI PAReferrer: ONIEL LARSON MD ED-ED 03/06/2020 07:57:00 PM EDT - 03/06/2020 10:28:00 PM EDT PAIN FROM CYST [facility] PAIN FROM CYST Patient discharged. Emergency Attender: Vimal Salterender: Vimal TURNER ED-ED 03/02/2020 10:09:00 AM EDT - 03/02/2020 02:13:00 PM EDT PREGRANT/ CRAMPING,SOME BLEEDIN [facility] PREGRANT/ CRAMPING,SOME BLEEDIN Patient discharged. Outpatient Attender: MISAEL TURNER CPSCAORT-LABEJN 12/04 02:44:00 PM EDT B34.9 [facility] B34.9 Emergency Attender: MISAEL TURNER ED-ED 12/04 11:27:00 AM EDT - 12/05/2019 12:38:00 PM EDT SORE THROAT,COUGH,EAR PAIN [facility] SORE THROAT,COUGH,EAR PAIN Patient discharged. Emergency Attender: Juan TURNER ED-ED 11:27:00 AM EDT - 11/28/2019 01:55:00 PM EDT PASSED CLOTS [facility] PASSED CLOTS Patient discharged. Outpatient Attender: ANITA CONNOR 10/29/2019 03:00:00 PM [facility] Outpatient Attender: Pretty TURNER Main Office 10/25/2019 02:15:00 PM EST [facility] Emergency Attender: JUAN JOSÉ DAY MD ED-ED 0 10/11/2019 02:59:00 PM EST - 10/11/2019 03:33:00 PM EST L CALF LAC [facility] L CALF LAC Patient discharged. Outpatient Attender: MOISES SILVA 10/11/2019 09:04:00 AM [facility] Outpatient Attender: MOISES SILVA 10/04/2019 09:03:00 AM [facility] Outpatient Attender: ANITA CONNOR 10/01/2019 12:14:00 PM [facility] Outpatient Attender: TERESA DAMION 09/28/2019 03:00:00 PM [facility] Medications Medication Brand Name Start Date Product Form Dose Route Admi nistrative Instructions Pharmacy Instructions Status Indications Reaction Description Data Source(s) pantoprazole 40 MG Delayed Release Oral Tablet PANTOPRAZOLE SODIUM 04/03/2020 12:00:00 AM EDT tablet,delayed release (DR/EC) 30 T BREA ONE TABLET BY MOUTH EVERY DAY TAKE ONE TABLET BY MOUTH EVERY DAY SOLD: 04/04/2020 [facility] 1 gram 04/03/2020 12:00:00 AM EDT tablet 28 TAKE ONE TABLET BY MOUTH FOUR TIMES A DAY TAKE ONE TABLET BY MOUTH FOUR TIMES A DAY SOLD: 04/04/2020 [facility] 4 mg 03/21/2020 12:00:00 AM EDT tablet,disintegrating 4 0 DISSOLVE ONE TABLET ON TONGUE EVERY 6 HOURS DISSOLVE ONE TABLET ON TONGUE EVERY 6 HOURS SOLD: 03/21/2020 [facility] 500 mg 03/21/2020 12:00:00 AM EDT tablet 20 TAKE ONE TABLET BY MOUTH TWICE A DAY FOR 10 DAYS TAKE ONE TABLET BY MOUTH TWICE A DAY FOR 10 DAYS SOLD: 03/21/2020 [facility] Misoprostol 0.2 MG Oral Tablet misoprostol (CYTOTEC) 2 00 MCG tablet misoprostol (CYTOTEC) 200 MCG tablet 08/11/2019 12:00:00 AM EST 200 ug Oral active Take 1 tablet (200 mcg total) by mouth 4 (four) times a day [facility] Sucralfate 1000 MG Oral Tablet sucralfate (CARAFATE) 1 g tablet sucralfate (CARAFATE) 1 g tablet 08/11/2019 12:00:00 AM EST 1 g Oral active Take 1 tablet (1 g total) by mouth 4 (four) times a day [facility] pantoprazole 40 MG Delayed Release Oral Tablet pantoprazole (PROTONIX) 40 MG tablet pantoprazole (PROTONIX) 40 MG tablet 08/11/2019 12:00:00 AM EST 40 mg Oral active Take 1 tablet (40 mg total) by mouth 2 (two) times a day [facility] Multiple Vitamins-Iron (MULTIVITAMIN WITH IRON) TABS 0904-05 31-60 06/26/2019 12:00:00 AM EDT 2 {tbl} Oral active Take 2 tablets by mouth daily [facility] Insurance Providers Payer name Policy type / Coverage type Policy ID Covered democrat ID Covered democrat's relationship to henderson Policy [place] Plan Information [facility] [id number] SP [id number] [facility] [id number] 18 [id number] [facility] [id number] S [id number] HEA [id number] SP [id number] [facility] [id number] S [id number] [facility] [id number] S [id number] [facility] [id number] Spo [id number] [facility] [id number] [facility] [id number] SP [id number] [facility] O [id number] S [id number] [facility] PLAN U [id number] Se lf [id number] [facility] U [id number] Se lf [id number] [facility] [id number] SP [id number] [facility] Commercial [id number] Self [id number] [facility] Commercial [id number] Self [id number] [facility] Commercial [id number] Self 00 [id number] [facility] Commercial [id number] Self [id number] Problems, Conditions, and Diagnoses Code Display Name Description Problem Type Effective Dates Data Source(s) E039 Hypothyroidism, unspecified Hypothyroidism, unspecifie d Diagnosis 04/02/2020 08:56:00 PM EDT [facility] K2970 Gastritis, unspecified, without bleeding Gastritis, unspecified, without bleeding Diagnosis 04/02/2020 08:56:00 PM EDT [facility] R109 Unspecified abdominal pain Unspecified abdominal pain Diagnosis 04/02/2020 08:56:00 PM EDT [facility] F33.9 Major depressive disorder, recurrent, un specified MAJOR DEPRESSIVE DISORDER, RECURRENT, UNSPECIFIED Diagnosis 10/04/2019 09:03:00 AM [facility] F32.9 Major depressive disorder, single episod e, unspecified MAJOR DEPRESSIVE DISORDER, SINGLE EPISODE, UNSPECIFIED Diagnosis 09/28/2019 03:00:00 PM [facility] Surgeries/Procedures Procedure Description Date Indications Data Source(s) CT ABDOEN & PELVIS W/CONTRAST MATERIAL 03/20/2020 12:0 0:[address] [facility] Low osmolar contrast material, 300-399 mg/ml iodine concentr ation, per ml 03/20/2020 12:00:[address] [facility] CULTURE BACTERIAL BLOOD AEROBIC W/ID ISOLATES 03/20/20 20 12:00:[address] [facility] COLLECTION VENOUS BLOOD VENIPUNCTURE 03/20/2020 12:00: [address] [facility] BLOOD COUNT COMPLETE AUTO&AUTO DIFRNTL WBC COUNT 03/20 12:00:[address] [facility] AMYLASE 03/20/2020 12:00:00 AM [facility] LACTATE 03/20/2020 12:00:00 AM [facility] LIPASE 03/20/2020 12:00:00 AM [facility] COMPREHENSIVE METABOLIC PANEL 03/20/2020 12:00:00 AM E [facility] Injection, ondansetron hydrochloride, per 1 mg 12:00:[address] [facility] Injection, morphine sulfate, up to 10 mg 03/20/2020 12 :00:[address] [facility] US UTERUS LIMITED 1/> FETUSES 03/02/2020 12:0 0:[address] [facility] URNLS DIP STICK/TABLET REAGENT AUTO MICROSCOPY 12:00:[address] [facility] GONADOTROPIN CHORIONIC QUANTITATIVE 03/02/2020 12:00:[address] [facility] URINE TEST VISUAL COLOR CMPRSN METHS 12:00:[address] [facility] US PREG UTERUS REAL TIME W/IMAGE DCMTN TRANSVAG 2019 12:00:[address] [facility] URNLS DIP STICK/TABLET RGNT AUTO W/O MICROSCOPY 2019 12:00:00 AM EDT [facility] Non-covered item or service 11/28/2019 12:00:[address] [facility] EMERGENCY DEPARTMENT VISIT HIGH/URGENT SEVERITY 2019 12:00:[address] [facility] Results ID Date Data Source [id number] 04/02/2020 08:56:00 PM EDT [facility] 1 OrderSheet [facility] Emergency Department [address] [place] [address] Phone #: ext- [phone] 04/02/2020 20:43 Patient: TRAVIS MCCLELLAN Sex: F : 1995 Age: 25yWEIGHT:158.7 kg (S) HEIGHT:60 inches (S) BMI:68.3ALLERGIES: KeflexCHIEF COMPLAINT: abdominal painDIAGNOSIS: GastritisLAB ORDERSOrder Description Priority Entered Acknowledged InitialedCBC w Diff STAT 21:16 04/02/2020 21:26 Rolly Gerardo Riccardo Robert R.N. M.D.;CMP STAT 21:04/02/2020 21:26 Rolly Gerardo Riccardo Robert R.N. M.D.;Lipase STAT 21:04/02/2020 21:26 Rolly Gerardo Riccardo Robert R.N. M.D.;Urinalysis (Clean STAT 21:16 04/02/2020 21:26 Fiordaliza Gerardo Riccardo Robert R.N. M.D.;Lactic Acid STAT 21:04/02/2020 21:26 Rolly Gerardo Riccardo Robert R.N. M.D.;HCG Serum Qual STAT 21:17 04/02/2020 21:26 Rolly Gerardo Riccardo Robert R.N. M.D.;DIAGNOSTIC STUDY ORDERSOrder Description Priority Entered Acknowledged InitialedCT Abd PEL W/ IV STAT 22:04/02/2020 23:52 Zoss, AprilContrast Only Julia Lofton R.N.(Oxygen?(No)) M.DLaura;(IV?(Yes)) Reason for Study: RUQ pain, Hx gallstones, s/p gastric bypassUS Gall Bladder STAT 22:32 04/02/2020 00:16 04/03/2020(Oxygen?(No)) Julia Lofton, December R.NLaura MThomas; Reason for Study: History of Gallstones, Nausea w Vomiting, RUQ Pain 2 OrderSheet [facility] Emergency Department [address] [place] [address] Phone #: [phone]- [phone] 04/02/2020 20:43 Patient: TRAVIS MCCLELLAN Sex: F : 1995 Age: 25yMEDICATION/IV/DRIP/FLUID ORDERSOrder Description Priority Entered Acknowledged InitialedPhenergan 25 mg 21:19 04/02/2020 22:32 Akinin 50 mL NS, give Julia Lofton R.N.wide open: 25 mg M.D.;(NOW x1, HIGHALERTMEDICATION)NS IV 1000 mL 21:19 04/02/2020 22:32 Akin,Bolus: : Bolus 1000 Raynerin, Julia Frank R.N.mL (X1) M.D.;Pepcid IVPB 20 21:19 04/02/2020 22:34 Akin,mg/50mL (NOW x1, Turrin, Julia Zac R.N.Infuse over 30 M.D.;minutes.)Protonix IVPB 40 21:19 04/02/2020 22:37 Akin,mg with Dextrose RaynerinJulia R.N.100 ml spike bag M.D.;(D5W)Dilaudid IVP 1 mg 22:30 04/02/2020 22:42 Akin(HIGH ALERT Turrin, Julia Zac R.N.MEDICATION) Cathi;GI Cocktail PO 50 00:31 04/03/2020 00:50 Akin,Xi with Lidocaine Julia Lofton M.D.;Mouth/Throat 10mL, Maalox Oral 30mL, Oral10 mLGENERAL ORDERSOrder Description Priority Entered Acknowledged InitialedNPO 21:16 04/02/2020 21:23 Rolly Gerardo Riccardo Robert R.N. M.D.;Saline Lock 21:16 04/02/2020 22:34 Rolly Gerardo Riccardo Robert R.N. M.D.;[Electronically signed by Bianca Maher R.N. (:04/03/2020)][Electronically signed by Julia Lofton M.D. (01:39 04/03/2020)][Electronically locked by Bianca Maher R.N. (04/03/2020)] Name Value Range Interpretation Code Description Data Judith rce(s) Supporting Document(s) ID Date Data Source [id number] 04/02/2020 08:56:00 PM EDT [facility] 1 Medication Reconciliation Report [facility] Emergency Department [address] [place] [address] Phone #: ovn- [phone] 04/02/2020 20:43 Patient: TRAVIS MCCLELLAN Sex: F : 1995 Age: 25yWeight: 158.7 kgHeight/Length: 60 in.BMI: 68.3ALLERGIES: KeflexThe patient's Home Medications are listed below:CONTINUE TAKING THE FOLLOWING MEDICATIONS: Synthroid 224mcg dailyThe source(s) of the original Home Medication information:patientThe following Medications were given to the patient in the Emergency Department:Phenergan [IVPB] IVPB bolus 0, then 25 mg 200 mL/hr, administered: 04/02/2020 10:32:00 PMNS [IV] IV Fluids bolus 1000 mL wide open, administered: 04/02/2020 10:32:00 PMPepcid [IVPB] IVPB bolus 0, then 20 mg 200 mL/hr, administered: 04/02/2020 10:34:00 PMProtonix [IVPB] IVPB bolus 0, then 40 mg 400 mL/hr, administered: 04/02/2020 10:25:00 PMDilaudid [IVP] IVP 1 mg, administered: 04/02/2020 10:42:00 PMGI Cocktail [PO] PO 50 mL, administered: 04/03/2020 12:50:00 AMThe following Medications were prescribed to the patient:Carafate 1 gram tablet Take 1 tablet four times a day for 7 days -- Dispense 28 tablet. Refills: 0.Substitution permitted.[facility] [address] [place] [address]. .Protonix 40 mg tablet,delayed release Take 1 tablet once a day for 30 days -- Dispense 30 tablet.Refills: 1. Substitution permitted.[facility] [address] [place] [phone]. Phone: [phone] Medication Reconciliation Report [facility] Emergency Department [address] [place] [address] Phone #: ext- [phone] 04/02/2020 20:43 Patient: TRAVIS MCCLELLAN Sex: F : 1995 Age: [id number] . -- Julia Lofton M.D. Name Value Range Interpretation Code Description Data Judith rce(s) Supporting Document(s) ID Date Data Source [id number] 04/02/2020 08:56:00 PM EDT [facility] 1 Medication Administration Record [facility] Emergency Department [address] [place] [address] Phone #: ext- [phone] 04/02/2020 20:43 Patient: TRAVIS MCCLELLAN Sex: F : 1995 Age: 25yWeight: 158.7 kgHeight/Length: 60 inBMI: 68.3ALLERGIES: Keflex Date/Time Medication Administered Medication OrderedStart PHENERGAN [IVPB] Phenergan 25 mg in 50 mL NS,22:32 04/02/2020 Dose: 25 mg IVPB give wide open: 25 mg (NOW x1,Zac Gerardo R.N. Rate: 200 mL/hr over 15 minute(s) HIGH ALERT MEDICATION)---- Dispensed: 50 mL bagStop Site: #1 right AC23:00 04/02/2020[facility]Start NS [IV] NS IV 1000 mL Bolus: : Bolus 163407:32 04/02/2020 Dose: IV Fluids mL (X1)Zac Gerrado R.N. Bolus: 1000 mL wide open---- Dispensed: 1000 mL bagStop Site: #1 right AC23:40 04/03/2020Bianca R.N.Start PEPCID [IVPB] Pepcid IVPB 20 mg/50mL (NOW22:34 04/02/2020 Dose: 20 mg IVPB x1, Infuse over 30 minutes.)Zac Gerardo R.N. Rate: 200 mL/hr over 15 minute(s)---- Dispensed: 50 mL bagStop Site: #1 right AC23:00 04/02/2020Bianca Maher R.N.Start PROTONIX [IVPB] (PANTOPRAZOLE Protonix IVPB 40 mg with22:25 04/02/2020 SODIUM) Dextrose 100 ml spike bag (D5W)Zac Gerardo R.N. Dose: 40 mg IVPB---- Rate: 400 mL/hr over 15 minute(s)Stop Dispensed: 100 mL bag00:20 04/03/2020 Site: #1 right ACZossBianca R.N.Given DILAUDID [IVP] (HYDROMORPHONE Dilaudid IVP 1 mg (HIGH ALERT22:42 04/02/2020 HCL) MEDICATION)Zac Gerardo R.N. Dose: 1 mg IVP Site: #1 right ACGiven GI COCKTAIL [PO] (CALCIUM GI Cocktail PO 50 mL with00:50 04/03/2020 CARBONATE ANTACID) Lidocaine Viscous Mouth/ThroatZac Gerardo R.N. Dose: 50 mL Oral Suspe nsion PO 10 mL, Maalox Oral 30 mL, Oral 10 mL Name Value Range Interpretation Code Description Data Judith rce(s) Supporting Document(s) ID Date Data Source [id number] 04/02/2020 08:56:00 PM EDT [facility] 1 General Instructions [facility] Emergency Department [address] [place] [address] Phone #: ext- [phone] 04/02/2020 20:43 Patient: TRAVIS MCCLELLAN Sex: F : 1995 Age: 25yAcute gastritis. No alcoholic gastritis or hemorrhagic gastritis.Rule out anastomotic ulcer.INSTRUCTIONSDrink plenty of fluids. Avoid alcohol and NSAIDS. NSAIDS include aspirin, ibuprofen (Advil) and naproxen(Aleve). Avoid fatty, fried/greasy, lactose-containing (such as milk, cheese and ice cream), salty and spicyfoods. No alcohol. Do not smoke.(PLEASE CONTACT YOUR GASTRIC SURGEON TODAY TO SEE IF HE WANTS TO REPEAT THEUPPER ENDOSCOPY TO RULE OUT ULCER).Warnings: Further evaluation is necessary. It is very important to follow up with a healthcare provider.GENERAL WARNINGS: Return or contact your physician immediately if your condition worsens orchanges unexpe ctedly, if not improving as expected, or if other problems arise. SPECIFICALLY, return ifyou develop pain in the abdomen, pelvis or back, fever, vomiting, the inability to keep fluids down, blood invomitus, blood in diarrhea, fainting or lightheadedness.Your Current Medications: Your current home medications have been reviewed.CONTINUE TAKING THE FOLLOWING MEDICATIONS:Synthroid 224mcg daily*.Prescription Medications:Carafate 1 gram tablet Take 1 tablet four times a day for 7 days -- Dispense 28 tablet. Refills: 0.Substitution permitted.[facility] [address] [place] [address] [id number]. .Protonix 40 mg tablet,delayed release Take 1 tablet once a day for 30 days -- Dispense 30 tablet.Refills: 1. Substitution permitted.[facility] [address] - [address] [place] [address] [phone]. .Follow-up:Return to the emergency department as needed. Follow up with a surgeon tomorrow even if well. Call rossy appointment. Reason for referral: evaluation and treatment. Summary of care provided to patient viapaper.Understanding of the discharge instructions verbalized by patient. Expected course of illness, discharge 2 General Instructions [facility] Emergency Department [address] [place] [address] Phone #: ext- [phone] 04/02/2020 20:43 Patient: TRAVIS MCCLELLAN Sex: F : 1995 Age: 25yinstructions, activity level, diet, prescriptions x2, follow-up appointment and risks and benefits of treatmentreviewed with patient and understanding verbalized. Agrees to plan of care. ADDITIONAL INFORMATIONGastritis or Ulcer, No Antibiotic TreatmentGastritis is irritation and inflammation of the stomach lining. This means the lining is red and swollen.It can cause shallow sores in the stomach lining called erosions. An ulcer is a deeper open sore in thelining of the stomach. It may also occur in the first part of the small intestine (duodenum). The causesand symptoms of orquidea ritis and ulcers are very similar.Causes and risk factors for both problems can include: Long-term use of nonsteroidal anti-inflammatory drugs (NSAIDs), such as aspirin and ibuprofen H. pylori bacteria infection Tobacco use Alcohol use Certain other conditions such as immune disorders, certain medicines (high-dose iron supplements) and street drugs (such as cocaine)Symptoms for both problems can include: 3 General Instructions [facility] Emergency Department [address] [place] [address] Phone #: ext- [phone] 04/02/2020 20:43 Patient: TRAVIS MCCLELLAN Sex: F : 1995 Age: 25y Dull or burning pain in the upper part of the belly Loss of appetite Heartburn or upset stomach Frequent burping Bloated feeling Nausea with or without vomitingYou likely had an evaluation to help find the exact cause and extent of your problem. This may haveincluded a health history, exam, and certain tests.Results showed that your problem is not due to H. pylori infection. For this reason, you don't needantibiotics as part of your t reatment.Whether your problem is gastritis or an ulcer, you will still need to take other medicines, however. Youwill also need to follow instructions to help reduce stomach irritation so your stomach can heal.Home care Take any medicines you're prescribed exactly as directed. Common medicines used to treat gastritis include: o Antacids. These help neutralize the normal acids in your stomach. o Proton pump inhibitors. These block your stomach from making any acid. o H2 blockers. These reduce the amount of acid your stomach makes. o Bismuth subsalicylate. This helps protect the lining of your stomach from acid. Don't take any NSAIDs during your treatment. If you take NSAID to help treat other health problems, tell your healthcare provider. He or she may need to adjust your medicine plan or change the dosage. Don't use tobacco. Also don't drink alcohol. These products can increase the amount of acid your stomach makes. This can delay healing. It can also worsen symptoms.Follow-up careFollow up with your healthcare provider, or as advised. In some cases, more testing may be needed.When to seek medical adviceCall your healthcare provider right away if any of these occur: 4 General Instructions [facility] Emergency Department [address] [place] [address] Phone #: ext- [phone] 04/02/2020 20:43 Patient: TRAVIS MCCLELLAN Sex: F : 1995 Age: 25y Fever of 100.4F (38C) or higher, or as directed by your healthcare provider Stomach pain that worsens or moves to the lower right part of belly Extreme fatigue Weakness or dizziness Continued weight loss Frequent vomiting, blood in your vomit, or coffee ground-like substance in your vomit Black, tarry, or bloody stoolsCall 911Call 911 if any of these occur: Chest pain appears or worsens, or spreads to the back, neck, shoulder, or arm Unusually fast heart rate Trouble breathing or swallowing Confusion Extreme drowsiness or trouble waking up Fainting Large amounts of blood present in vomit or stool [id number] [employer]. [address] [place], [place] [id number]. All rights reserved. This information is not intended as asubstitute for professional medical care. Always follow your healthcare professional's instructions. You have been given the following additional information: Gastritis or Ulcer (No Antibiotic Treatment)(Electronically signed by Julia Lofton M.D. 04/03/2020 01:39) Name Value Range Interpretation Code Description Data Judith rce(s) Supporting Document(s) ID Date Data Source [id number] 04/02/2020 08:56:00 PM EDT [facility] 1 Clinical Report - Nurses [facility] Emergency Department [address] [place] [address] Phone #: ext- [phone] 04/02/2020 20:43 Patient: TRAVIS MCCLELLAN Sex: F : 1995 Age: 25yTRIAGEArrived by private vehicle.Acuity: LEVEL 3.Chief Complaint: ABDOMINAL PAIN.Alert. No acute distress.Worsened while eating. Symptoms are intermittent and still present (3 days ago). She has had nausea,vomiting, diarrhea and abdominal pain. 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 Sepsis Screen negative. No suspected or confirmed signs ofinfection present. --20:57 04/02/20 Zac Gerardo R.N.20:45 04/02/20. BP: 133/77. MAP: 95. HR: 91. RR: 17. O2 saturation: 97%. Temp: 98.1 F. Pain level now:03/21. --20:57 04/02/20 Zac Gerardo R.N.Weight: 158.7 kg stated. Height/Length: 60 inches Per Patient. BMI: 68.3. --20:55 04/02/20 Zac Gerardo R.N.MedicationsSynthroid 224mcg daily. --20:49 04/02/20 Zac Gerardo R.N.AllergiesKeflex. --20:49 04/02/20 Zac Gerardo R.N.PROBLEMS:Obesity.Hypothy roidism. --21:35 04/02/20 Julia Lofton M.D.The following entry was modified by Julia Lofton M.D., 21:35 04/02/20Obesity. --20:50 04/02/20 Zac Gerardo R.N.The following entry was modified by Julia Lofton M.D., 21:35 04/02/20Hypothyroidism. --20:50 04/02/20 Zac Gerardo R.N..Medication/allergy information source: the patient. --20:57 04/02/20 Zac Gerardo R.N.ADDITIONAL SURGERIES:. 2 Clinical Report - Nurses [facility] Emergency Department [address] [place] [address] Phone #: ext- [phone] 04/02/2020 20:43 Patient: TRAVIS MCCLELLAN Sex: F : 1995 Age: 25y Dental Surgery. Knee Surgery. --20:52 04/02/20 Zac Gerardo R.N. History PAST MEDICAL HX: Gallstones. Peptic ulcer disease. Immunizations: up-to-date. Last normal menstrual period was 2 weeks ago. Sexual history - sexually active. Uses condoms. SOCIAL HX: Never smoker. Smoker- current status unknown. She was offered HIV testing but declined. Patient education was provided. She was offered hepatitis C testing but declined. Patient education was provided. She has not traveled outside the [place] Infectious disease exposure: The patient was not exposed to chicken pox, measles, mumps, meningitis, staph, strep, mono, C- diff, MRSA, VRE, CRE, influenza, Viktor flu, H1N1 flu, Hepatitis A, B and C, Coronavirus, MERS, SARS, tuberculosis, Ebola, HIV, Typhoid or Zika. SELF HARM ASSESSMENT: Self harm assessment was performed. The patient answered "no" to the question(s) "Have you recently felt down, depressed, or hopeless?", "Do you have thoughts of harming or killing yourself?", "Do you have a plan for harming or killing yourself?", "Have you recently had thoughts about harming or killing others?", "Do you have any dangerous items in your possession?", "Have you noticed less interest or pleasure in doing things?", "Are you here because you tried to hurt yourself?" and "Have you ever tried to hurt yourself before today?". ABUSE ASSESSMENT: Abuse assessment. Abuse denied. No suspicion of abuse. NUTRITIONAL RISK ASSESSMENT: The nutritional risk assessment revealed no deficiencies. FUNCTIONAL ASSESSMENT: Functional assessment: no impairments noted. LEARNING NEEDS ASSESSMENT: The learning needs assessment revealed no barriers. FALL RISK ASSESSMENT: Fall risk assessment completed. No risk factors identified. SKIN INTEGRITY ASSESSMENT: Skin integrity risk assessment completed. No skin integrity risk identified. --20:57 04/02/20 Zac Gerardo R.N. Assessment The patient states feels the same. --20:57 04/02/20 Zac Gerardo R.N.PHYSICAL ASSESSMENTGENERAL / NEURO / PSYCH: Alert. Oriented X 4. Appears in pain and anxious.HEENT: Mucous membranes are pink.RESPIRATORY: Respirations not labored. Breath sounds within normal limits.CVS: Normal sinus rhythm noted. Capillary refill less than 2 seconds.GI / : Abdomen soft and nontender. Bowel sounds within normal limits. Normal genitalia.SKIN: Skin is warm and dry. --20:58 04/02/20 Zac Gerardo R.N. 3 Clinical Report - Nurses [facility] Emergency Department [address] [place] [address] Phone #: ext- [phone] 04/02/2020 20:43 [id number] Sex: F : 1995 Age: 25yNURSING PROGRESS NOTES21:57 04/02/2020 Two (2) unsuccessful IV access attempts including the left antecubital space and wrist.Applied bandaid and pressure dressing. --21:57 04/02/20 Zac Gerardo R.N. 22:20 04/02/2020 Site #1 started via IV in the right antecubital space with an 18g angiocath, with aseptic technique and good blood return; one attempt. Saline lock flushed with 10 mL saline. --22:29 04/02/20 Zac Gerardo R.N. 22:26 04/02/20. BP: 111/67. MAP: 81. HR: 82. RR: 18. O2 saturation: 97%. Pain level now: 04/21. --22:04/02/20 Zac Gerardo R.N. Rounding: Pain: assessed pain level. Position: repositioned. Personal care / toileting: denies toileting needs and mouth care. Proximity of possessions / care items: call light within easy reach. Plug ins: assured IV pump plugged in; checked status of equipment in use; located all cords, tubes, and lines to prevent fall hazard. Set expectations: advised patient of rounding protocol timing and asked if they needed anything else at this time. Two patient identifiers checked. Call light placed in reach. Side rails up x 2. Bed placed in lowest position. Brakes of bed on. --:04/02/20 Zac Gerardo R.N. 22:25 04/02/2020 Started 40 mg of Protonix (Pantoprazole Sodium) IVPB in bag #1 100 mL; at 400 mL/hr over 15 minute(s) via site #1. via IV pump. Allergies verified and confirmed 5 rights. IV patency established. IV site checked: no pain, redness, or swelling. IV flushed thoroughly pre- and post-medication administration. Information reviewed with patient including reason for taking this medication, signs of allergic reaction and precautions. Verbalizes understanding. --22:37 04/02/20 Zac Gerardo R.N. 22:04/02/2020 Started 25 mg of Phenergan IVPB in bag #1 50 mL; at 200 mL/hr over 15 minute(s) via site #1. via IV pump. Allergies verified and confirmed 5 rights. IV patency established. IV site checked: no pain, redness, or swelling. IV flushed thoroughly pre- and post-medication administration. Information reviewed with patient including reason for taking this medication, signs of allergic reaction and precautions. Verbalizes understanding. --:04/02/20 Zac Gerardo R.N. 22:04/02/2020 Started bag #1 1000 mL IV Fluids NS; bolus of 1000 mL wide open then at via site #1 via IV pump. Allergies verified and confirmed 5 rights. IV patency established. IV site checked: no pain, redness, or swelling. IV flushed thoroughly pre- and post-medication administration. Information reviewed with patient including reason for taking this medication, signs of allergic reaction and precautions. Verbalizes understanding. --22:33 04/02/20 Zac Gerardo R.N. 22:34 04/02/2020 Started 20 mg of Pepcid IVPB in bag #1 50 mL; at 200 mL/hr over 15 minute(s) via site #1. via IV pump. Allergies verified and confirmed 5 rights. IV patency established. IV site checked: no pain, redness, or swelling. IV flushed thoroughly pre- and post-medication administration. Information reviewed with patient including reason for taking this medication, signs of allergic reaction and precautions. Verbalizes understanding. --22:34 04/02/20 Zac Gerardo R.N. 22:42 04/02/2020 Dilaudid (HYDROmorphone HCl) IVP 1 mg given over 2 minute(s) via site #1. Allergies verified and confirmed 5 rights. IV patency established. IV site checked: no pa in, redness, or swelling. IV 4 Clinical Report - Nurses [facility] Emergency Department [address] [place] [address] Phone #: ext- [phone] 04/02/2020 20:43 Patient: TRAVIS MCCLELLAN Sex: F : 1995 Age: 25y flushed thoroughly pre- and post-medication administration. Information reviewed with patient including reason for taking this medication, signs of allergic reaction, precautions and sedative warning. Verbalizes understanding. - -22:42 04/02/20 Zac Gerardo R.N. 00:50 04/03/2020 GI Cocktail (Calcium Carbonate Antacid) PO Oral Suspension 50 mL given. Allergies verified and confirmed 5 rights. Information reviewed with patient including reason for taking this medication, signs of allergic reaction and precautions. Verbalizes understanding. --00:51 04/03/20 Zac Gerardo R.N. Reassessment acuity: LEVEL 3. Rounding: Pain: assessed pain level. Position: states comfortable. Personal care / toileting: denies toileting needs and mouth care. Proximity of possessions / care items: call light within easy reach. Plug ins: assured IV p ump plugged in. Set expectations: advised patient of rounding protocol timing and asked if they needed anything else at this time. The patient is calm and resting quietly and has had no adverse reaction. GI / : Abdomen soft and nontender. Bowel sounds within normal limits. SKIN: Skin is warm and dry. Skin color within normal limits. Two patient identifiers checked. Call light placed in reach. Side rails up x 2. Bed placed in lowest position. Brakes of bed on. --00:53 04/03/20 Zac Gerardo R.N. 00:51 04/03/20. BP: 108/58. MAP: 74. HR: 80. RR: 16. O2 saturation: 100%. Temp: 98.2 F. Pain level now: 11/19. --00:53 04/03/20 Zac Gerardo R.N.DISPOSITION / DISCHARGE 23:00 04/02/2020 Pepcid IVPB via IV site #1 Discontinued: bag #1 infused. Total amount infused: 50 mL. IV patency established. IV site checked: no pain, redness, or swelling. IV flushed thoroughly. --01:19 04/03/20 GunnarDecember R.NLaura 23:00 04/02/2020 Phenergan IVPB via IV site #1 Discontinued: bag #1 infused. Total amount infused: 50 mL. IV patency established. IV site checked: no pain, redness, or swelling. IV flushed thoroughly. --01:20 04/03/20 GunnarDecember R.NLaura 00:20 04/03/2020 Protonix IVPB via IV site #1 Discontinued: bag #1 infused. Total amount infused: 100 mL. IV patency established. IV site checked: no pain, redness, or swelling. IV flushed thoroughly. --01:20 04/03/20 GunnarDecember R.NLaura 23:40 04/03/2020 IV Fluids NS via IV site #1 Discontinued: bag #1 infused. Total amount infused: 1000 mL. IV patency established. IV site checked: no pain, redness, or swelling. IV flushed thoroughly. --01:19 04/03/20 Bianca Maher R.N. Condition at departure: improved and stable. No learning barriers present. Discharge instructions provided and reviewed with the patient. Reviewed medication(s). Follow up contact number GI. Patient verbalized understanding. Written instructions provided in Indonesian. The patient was discharged by the physician. She was discharged home. She left ambulatory and via private vehicle. Driving ([facility] 5 Clinical Report - Nurses [facility] Emergency Department [address] [place] [address] Phone #: [phone] 04/02/2020 20:43 Patient: TRAVIS MCCLELLAN Sex: F : 1995 Age: 25y has a lyft ride). --01:23 04/03/20 Bianca Maher R.N. 01:18 04/03/20. BP: 130/75. MAP: 93. HR: 78. RR: 18. O2 saturation: 99%. Temp: 97.8 F. Pain level now: 10/22. --01:23 04/03/20 Bianca Maher R.N.Locked/Released at 04/03/2020 01:23 by Bianca Maher R.N. Name Value Range Interpretation Code Description Data Judith rce(s) Supporting Document(s) ID Date Data Source [id number] 04/02/2020 08:56:00 PM EDT [facility] 1 Clinical Report - Physicians/Mid Levels [facility] Emergency Department [address] [place] [address] Phone #: ext- [phone] 04/02/2020 20:43 Patient: TRAVIS MCCLELLAN Sex: F : 1995 Age: 25y Time Seen: 20:48 04/02/2020; initial patient contact. Arrived- By private vehicle. Historian- patient. Disposition decision: 00:34 04/03/2020.HISTORY OF PRESENT ILLNESS Chief Complaint: ABDOMINAL PAIN. This started 3 days ago and is still present. It was gradual in onset and has been constant. It is described as "pain" and sharp and it is described as located in the epigastric area and in the upper abdomen. At its maximum, severity described as severe and 10 / 10. When seen in the E.D., severity described as severe and 10 / 10. Modifying factors- worsened by movement and food. Not relieved by anything. The patient has had moderate nausea. No loss of appetite. She has had vomiting. The vomiting has occurred several times. No blood-tinged emesis or frankly bloody emesis. She has had diarrhea. This has occurred several times. No bloody diarrhea. (pt is s/p gastric bypass at [facility] then perforated ulcer on ; was dxed w gallstones in 11-[address] [facility]). No recent travel. Similar symptoms previously. Patient has had similar symptoms occasionally. Recent medical care: Not recently seen/assessed.REVIEW OF SYSTEMSNo constipation, black stools, hematemesis, difficulty with urination or pain with urination. No urinaryfrequency, bloody stools, fever, headache or sore throat. No blurred vision, chest pain, difficulty breathing,cough or joint pain. No skin rash, chills or back pain. The patient has not had weight loss. All othersystems reviewed and are negative.PAST HISTORYSee nurses notes. Problems: Obesity. Hypothyroidism. Diverticulosis. Peptic Ulcer Disease. Gallstone(s). Additional Surgeries: . Knee Surgery. Kavon-en-Y gastrojejunostomy [06/25/2019]. Thyroid Surgery. Thyroidectomy. 2 Clinical Report - Physicians/Mid Levels [facility] Emergency Department [address] [place] [address] Phone #: ext- [phone] 04/02/2020 20:43 Patient: TRAVIS MCCLELLAN Sex: F : 1995 Age: 25y Medications: Synthroid 224mcg daily. Allergies: Keflex.SOCIAL HISTORYNever smoker. No alcohol use or drug use.ADDITIONAL NOTESThe nursing notes have been reviewed with agreement regarding the chief complaint, HPI, ROS, PMH andpatient medications and allergies.PHYSICAL EXAMVital Signs: 04/02/2020 20:45 BP: 133/77. MAP: 95. HR: 91. RR: 17. O2 saturation: 97%. Temp: 98.1 F.Pain level now: 03/21. Have been reviewed. Oxygen saturation normal.Appearance: Alert. Oriented X3. Appears to be in pain. Patient in mild distress. Distress appears dueto pain.Eyes: Pupils equal, round and reactive to light. Eyes normal inspection.ENT: Ears normal. Nose normal. Pharynx normal.Neck: Normal inspection. Neck supple.CVS: Normal heart rate and rhythm. Heart sounds normal. Pulses normal.Respiratory: No respiratory distress. Painless inspiration. Breath sounds normal. Chest nontender.Abdomen: Soft. Mild tenderness in the upper abdomen, right upper quadrant and epigastric area. Noguarding or rebound tenderness. Bowel sounds normal. No organomegaly. No mass. Femoral pulsesequal. Moderately obese.Back: Normal inspection. No CVA tenderness.Skin: Skin warm and dry. Normal skin color. No rash. Normal skin turgor.Extremities: Extremities exhibit normal ROM. No lower extremity edema.Neuro: Oriented X 3. No motor deficit. No sensory deficit. Reflexes normal.LABS, X-RAYS, AND EKGAbdominal CT: REPORT SUBMISSION DATE: Apr 02, 2020 11:57:11 PM EDT NAME: TRAVIS MCCLELLAN STUDY INITIATED: Apr 02, 2020 11:14:43 PM EDT STUDY RECEIVED: Apr 02, 2020 11:38:40 PM EDT GENDER: F MODALITY TYPE: CT\\SR : [birth year] DESCRIPTION: CT ABD PELVIS W/ IV ONLY INSTITUTION: [facility] ORDERING PHYSICIAN: Julia Lofton 3 Clinical Report - Physicians/Mid Levels [facility] Emergency Department [address] [place] [address] Phone #: ext- [phone] 04/02/2020 20:43 Patient: TRAVIS MCCLELLAN Sex: F : 1995 Age: 25yPATIENT HISTORY: ruq pain, hx gall stones, s/p gastric bypass. dose 2751.3 mGy*cm (Hx) / CORONAL(DICOM Hx)EXAM: CT Abdomen and Pelvis with IV contrast CLINICAL HISTORY: Ruq pain, hx gall stones, s/p gastric bypass. dose 2751.3 mGy*cmTECHNIQUE: Axial computed tomography images of the abdomen and pelvis with intravenous contrast.CONTRAST: with intravenous contrast. With; Iodine 0COMPARISON: None provided.FINDINGS:LUNG BASES: The lung bases appear clear. No pleural effusions are seen.LIVER: Unremarkable.GALLBLADDER AND BILE DUCTS: The gallbladder appears within normal limits. No radioopaquegallstones are seen. No biliary ductal dilatation is evident.PANCREAS: Unremarkable.SPLEEN: Unremarkable.ADRENAL GLANDS: Unremarkable.KIDNEYS, URETERS, AND BLADDER: The kidneys appear within normal limits. There is nohydronephrosis or hydroureter. No urinary calculi are seen.STOMACH AND BOWEL: Post gastric bypass.APPENDIX: No evidence of acute appendicitis on CT examination.PERITONEUM: No free fluid. No free air.LYMPH NODES: No lymphadenopathy is evident.REPRODUCTIVE: Unremarkable as visualized.VASCULATURE: No evidence of abdominal aortic aneurysm. 4 Clinical Report - Physicians/Mid Levels [facility] Emergency Department [address] [place] [address] Phone #: ext- [phone] 04/02/2020 20:43 Patient: TRAVIS MCCLELLAN Sex: Suzie : 1995 Age: 25yBONES: No aggressive appearing osseous lesion. No acute osseous pathology evident.ImpressionNo acute abnormality identified.Post gastric bypass.Electronically signed on Apr 02, 2020 11:57:11 PM EDT by:Kaushal Givens, [place] [employer]. Study type: abdomen and pelvis. Abdominal CT performedwith IV contrast. The study was interpreted by the radiologist.Abdominal Sonogram: (REPORT SUBMISSION DATE: Apr 02, 2020 11:27:09 PM EDTNAME: TRAVIS MCCLELLAN STUDY INITIATED:Apr 02, 2020 10:52:32 PM EDTMRN: [id number] STUDY RECEIVED:Apr 02, 2020 11:25:10 PM EDTGENDER: F MODALITY TYPE:US\\SRDOB: [birth year] DESCRIPTION: US GALLBLADDERINSTITUTION: [facility] ORDERING PHYSICIAN: ROLLY DUMONTACCESSION #: [id number] HISTORY:EXAM: US Abdomen, Right Upper Quadrant.CLINICAL HISTORY: US GALLBLADDERTECHNIQUE: Right upper quadrant sonography performed with image documentation.COMPARISON: None provided.FINDINGS:LIVER: Within normal limits in size and echogenicity. No mass.GALLBLADDER:. The gallbladder is normal in appearance. No gallstone or wall thickening.COMMON BILE DUCT: No dilation.PANCREAS: The distal pancreas is obscured by bowel gas. The visualized portion of the pancreasappears within normal limits. 5 Clinical Report - Physicians/Mid Levels [facility] Emergency Department [address] [place] [address] Phone #: ext- [phone] 04/02/2020 20:43 Patient: TRAVIS MCCLELLAN Sex: F : 1995 Age: 25yRIGHT KIDNEY: Unremarkable. Normal renal contours. No renal mass or calculus. No hydronephrosis.ImpressionUnremarkable gallbladder.Electronically signed on Apr 02, 2020 11:27:09 PM EDT by:Kaushal Givens, [place] [employer]). Study included the gallbladder. The study was interpreted bythe radiologist.Laboratory Tests: Laboratory tests have been ordered, with results reviewed and considered in themedical decision making process.US Gall Bladder: (TANA: 04/02/2020 22:32) ( MsgRcvd 04/02/2020 23:27) Final resultsUS GALLBLADDERReason(s): History of GallstonesTRANSPORTATION: WC IV? O2? Oxygen?(No) Room: ED Exam GALLBLADDER [facility] [address] [facility] [place] [address] ---------NAME--------- NUMBER SEX AGE ADMIT DISC. XRAY# F/C TYPE GREYCORONADO TRAVIS [id number] F 25 04/02/20 SB2 E/R DATE OF : 1995 M/R# [id number] #: [id number] TR-03 LOCATION: EMERGENCY DEPT TRANSCRIBED: 04/02/20 23:27 IF US GALLBLADDER [id number] COMPLETED:04/02/20 23:27 radha [id number] Reason(s): History of Gallstones Nausea w Vomiting RUQ Pain PHYSICIAN: ROLLY FLORENCIO R A D I O L O G Y R E P O R T PATIENT HISTORY: US GALLBLADDER RUQ PAIN EXAM: US Abdomen, Right Upper Quadrant. CLINICAL HISTORY: US GALLBLADDER TECHNIQUE: Right upper quadrant sonography performed with image documentation. COMPARISON: None provided. FINDINGS: LIVER: Within normal limits in size and echogenicity. No mass. GALLBLADDER:. The gallbladder is normal in appearance. No gallstone or wall thickening. COMMON BILE DUCT: No dilation. PANCREAS: The distal pancreas is obscured by bowel gas. The visualized portion 6 Clinical Report - Physicians/Mid Levels [facility] Emergency Department [address] [place] [address] Phone #: ext- [phone] 04/02/2020 20:43 Patient: TRAVIS MCCLELLAN Sex: F : 1995 Age: 25y of the pancreas appears within normal limits. RIGHT KIDNEY: Unremarkable. Normal renal contours. No renal mass or calculus. No hydronephrosis. IMPRESSIONS: Unremarkable gallbladder. Electronically Signed By: Denys Haywood M.D. , Radiologist Date/Time: 04/02/20 23:27CT Abd PEL W/ IV Contrast Only: (TANA: 04/02/2020 22:27) ( MsgRcvd 04/02/2020 23:57) Finalresults Exam CT ABD //T// PELVIS W/ [place] [address] ---------NAME--------- NUMBER SEX AGE ADMIT DISC. XRAY# F/C TYPE VY ROBLES [id number] F 25 04/02/201994423229 SB2 E/R DATE OF : 1995 M/R# [id number] #: [id number] TR-03 LOCATION: EMERGENCY DEPT TRANSCRIBED: 04/02/20 23:[address] ABD //T// PELVIS W/ IV ONLY [id number] COMPLETED:04/02/20 23:40 [facility] [id number] Reason(s): RUQ pain, Hx gallstones, s/p gastric bypass PHYSICIAN: ROLLY NÚÑEZ R A D I O L O G Y R E P O R T PATIENT HISTORY: ruq pain, hx gall stones, s/p gastric bypass. dose 2751.3 mGy*cm / CORONAL (DICOM Hx) EXAM: CT Abdomen and Pelvis with IV contrast CLINICAL HISTORY: Ruq pain, hx gall stones, s/p gastric bypass. dose 2751.3 mGy*cm TECHNIQUE: Axial computed tomography images of the abdomen and pelvis wi th intravenous contrast. CONTRAST: with intravenous contrast. With; Iodine 0 COMPARISON: None provided. FINDINGS: LUNG BASES: The lung bases appear clear. No pleural effusions are seen. LIVER: Unremarkable. GALLBLADDER AND BILE DUCTS: The gallbladder appears within normal limits. No radioopaque gallstones are seen. No biliary ductal dilatation is evident. PANCREAS: Unremarkable. SPLEEN: Unremarkable. 7 Clinical Report - Physicians/Mid Levels [facility] Emergency Department [address] [place] [address] Phone #: ext- [phone] 04/02/2020 20:43 Patient: TRAVIS MCCLELLAN Sex: F : 1995 Age: 25y ADRENAL GLANDS: Unremarkable. KIDNEYS, URETERS, AND BLADDER: The kidneys appear within normal limits. There is no hydronephrosis or hydroureter. No urinary calculi are seen. STOMACH AND BOWEL: Post gastric bypass. APPENDIX: No evidence of acute appendicitis on CT examination. PERITONEUM: No free fluid. No free air. LYMPH NODES: No lymphadenopathy is evident. REPRODUCTIVE: Unremarkable as visualized. VASCULATURE: No evidence of abdominal aortic an eurysm. BONES: No aggressive appearing osseous lesion. No acute osseous pathology evident. IMPRESSIONS: No acute abnormality identified. Post gastric bypass. While performing the above CT examination, radiation dose reduction was accomplished utilizing automated exposure control, adjusting of the mA and kV based on the patient's body size and/or the use of imperative reconstructive techniques. Electronically Signed By: Denys Haywood M.D. , Radiologist Date/Time: 04/02/20 23:57Beta-HCG, Qual Serum: (TANA: 04/02/2020 21:26) ( MsgRcvd 04/02/2020 21:53) Final results Test Result Flag Units (Reference) HCG SERUM QUAL NEGATIVE (NORMAL: NEGAT HCG SERUM QL REENTER NEGATIVE (NORMAL: NEGAT { KIT LOT # [id number] ){ KIT EXP 06.24.21 ){ PROCEDURAL CONTROL VALID)CBC w Diff: (TANA: 04/02/2020 21:26) ( MsgRcvd 04/02/2020 21:52) Final results Test Result Flag Units (Reference) CBC W/AUTOMATED DIFF COMPLETE BLOOD COUNT WBC 6.1 10/uL (4.2 - 11.0) RBC 4.14 L 10/uL (4.20 - 5.40) HEMOGLOBIN 11.7 L g/dL (12.0 - 16.0) HEMATOCRIT 36.5 L % (37.0 - 47.0) MCV 88.2 fL (81.0 - 101) MCH 28.3 pg (27.0 - 34.0) MCHC 32.1 g/dL (31.0 - 36.0) RDW 12.6 % (11.5 - 14.5) 8 Clinical Report - Physicians/Mid Levels [facility] Emergency Department [address] [place] [address] Phone #: ext- [phone] 04/02/2020 20:43 Patient: TRAVIS MCCLELLAN Sex: F : 1995 Age: 25y PLATELETS 342 10/uL (150 - 450) MPV 10.3 fL (7.4 - 10.4) NEUT 46.8 % (37.0 - 80.0) LYMPH 41.2 H % (25.0 - 40.0) MONO 6.8 % (3.0 - 8.0) EOS 3.9 % (0.0 - 7.0) BASO 1.1 % (0.0 - 2.5) %IG 0.2 H % (0.0 - 0.0) %NRBC 0.0 % (0.0 - 0.0) #NEUT 2.87 10/uL (2.00 - 6.90) #LYMPH 2.53 10/uL (0.60 - 3.40) #MONO 0.42 10/uL (0.00 - 0.90) #EOS 0.24 10/uL (0.00 - 0.70) #BASO 0.07 10/uL (0.00 - 0.20) #IG 0.01 10/uL (0.00 - 0.10) #NRBC 0.00 10/uL (0.00 - 0.00) MANUAL DIFF NOT INDICATED RBC MORPH NOT INDICATEDCMP: (TANA: 04/02/2020 21:26) ( MsgRcvd 04/02/2020 22:00) Final results Test Result Flag Units (Reference) COMPREHENSIVE METABOLIC PANEL COMPREHENSIVE METABOLIC PANEL SODIUM 140 mEq/L (134 - 153) POTASSIUM 4.2 mEq/L (3.6 - 5.0) CHLORIDE 108 H mEq/L (98 - 107) CO2 22 MEQ/L (22 - 30) GLUCOSE 137 H MG/DL (65 - 110) BUN 7 MG/DL (7 - 21) CREATININE 0.8 MG/DL (0.7 - 1.5) BUN/CREAT 9 (8 - 27) TOTAL PROTEIN 7.6 G/DL (6.3 - 8.2) ALBUMIN 4.0 G/DL (3.9 - 5.0) GLOBULIN 3.6 H GM/DL (2.4 - 3.2) A/G RATIO 1.1 (0.8 - 2.0) CALCIUM 8.3 L MG/DL (8.4 - 10.2) TOTAL BILI <0.7 MG/DL (0.2 - 1.3) ALKALINE PHOS 92 U/L (38 - 126) SGOT/AST 15 U/L (5 - 40) SGPT/ALT 11 U/L (7 - 56) ANION GAP 10.0 mmol/L (8.0 - 16.0) AGE 25 yrs NON-AA GFR > 60 mL/min AFR AMER GFR >60 mL/min Male GFR Interprentation 20-49 yrs >60 mL/min Rndxnb79-37 yrs >56 mL/min Normal 60-69 yrs >49 mL/min Normal 70-79yrs>42 mL/min Normal 80 and above >35 mL/min Normal Female GFRInterpretation 20-39 yrs >60 mL/min Normal 40-49 yrs >58 mL/minNormal 50-59 yrs >51 mL/min Normal 60-69 yrs >45 mL/min Atdcht47-49 yrs >39 mL/min Normal 80 and above >32 mL/min NormalLipase: (TANA: 04/02/2020 21:26) ( MsgRcvd 04/02/2020 21:59) Final results Test Result Flag Units (Reference) LIPASE 21 U/L (13 - 60)Lactic Acid: (TANA: 04/02/2020 21:26) ( MsgRcvd 04/02/2020 21:44) Final results Test Result Flag Units (Reference) 9 Clinical Report - Physicians/Mid Levels [facility] Emergency Department [address] [place] [address] Phone #: ext- [phone] 04/02/2020 20:43 Patient: TRAVIS MCCLELLAN [facility]#: [id number] Sex: F : 1995 Age: 25y LACTIC ACID 3.0 H MMOL/L (0.2 - 2.2).PROGRESS AND PROCEDURESCourse of Care: 22:30 04/02/20. workup all in and reviewed, lactic up, but WBC and liver enzymes andlipase nml; pt still in pain; will do CTAP w iv and GB US 23:38 04/02/20. GB US results in and nml; waiting for CTAP w IV results 00:32 04/03/20. CTAP w IV results in and nml; pt doing better; pt has probably a small anastomotic ulcer vs gastritis, and will treat for that; pt advised to f/u w gastric surgeon tomorrow for probable repeat upper endoscopy; d/c instructions given. Patient counseled in person regarding the patient's stable condition, test results, diagnosis and need for follow-up. Patient agrees with plan of care. Disposition: Condition: good and stable. Discharge decision based on the following: patient's condition is stable; patient's condition is improved; patient is ambulatory; patient is active; patient drinking fluids; patient's pain is controlled; patient's exam is improved; no abnormal test results; improving condition on multiple repeat evaluations; social support is good; transportation is available; follow-up is available; clinical impression is consistent with outpatient treatment.CLINICAL IMPRESSION Acute gastritis. No alcoholic gastritis or hemorrhagic gastritis. Rule out anastomotic ulcer.INSTRUCTIONS Drink plenty of fluids. Avoid alcohol and NSAIDS. NSAIDS include aspirin, ibuprofen (Advil) and naproxen (Aleve). Avoid fatty, fried/greasy, lactose-containing (such as milk, cheese and ice cream), salty and spicy foods. No alcohol. Do not smoke. (PLEASE CONTACT YOUR GASTRIC SURGEON TODAY TO SEE IF HE WANTS TO REPEAT THE UPPER ENDOSCOPY TO RULE OUT ULCER). Warnings: Further evaluation is necessary. It is very important to follow up wit h a healthcare provider. GENERAL WARNINGS: Return or contact your physician immediately if your condition worsens or changes unexpectedly, if not improving as expected, or if other problems arise. SPECIFICALLY, return if you develop pain in the abdomen, pelvis or back, fever, vomiting, the inability to keep fluids down, blood in vomitus, blood in diarrhea, fainting or lightheadedness. 10 Clinical Report - Physicians/Mid Levels [facility] Emergency Department [address] [place] [address] Phone #: ext- [phone] 04/02/2020 20:43 Patient: TRAVIS MCCLELLAN Sex: F : 1995 Age: 25y Your Current Medications: Your current home medications have been reviewed. CONTINUE TAKING THE FOLLOWING MEDICATIONS: Synthroid 224mcg daily*. Prescription Medications: Carafate 1 gram tablet Take 1 tablet four times a day for 7 days -- Dispense 28 tablet. Refills: 0. Substitution permitted. [facility] # [address] [place] [address] [phone]. . Protonix 40 mg tablet,delayed release Take 1 tablet once a day for 30 days -- Dispense 30 tablet. Refills: 1. Substitution permitted. [facility] # [address] [place] [address] [phone]. . Follow-up: Return to the emergency department as needed. Follow up with a surgeon tomorrow even if well. Call for an appointment. Reason for referral: evaluation and treatment. Summary of care provided to patient via paper. Understanding of the discharge instructions verbalized by patient. Expected course of illness, discharge instructions, activity level, diet, prescriptions x2, follow-up appointment and risks and benefits of treatment reviewed with patient and understanding verbalized. Agrees to plan of care.(Electronically signed by Julia Lofton M.D. 04/03/2020 01:39) Name Value Range Interpretation Code Description Data Jduith rce(s) Supporting Document(s) ID Date Data Source [id number] 04/02/2020 11:57:00 PM EDT [facility] [address] [facility] [place] [address] ---------NAME--------- NUMBER SEX AGE ADMIT DISC. XRAY# F/C TYPE GREYCORONADO TRAVIS [id number] F 25 04/02/20 SB2 E/R DATE OF : 1995 M/R# [id number] #: [id number] TR-03 LOCATION: EMERGENCY DEPT TRANSCRIBED: 04/02/20 23:[address] ABD //T// PELVIS W/ IV ONLY [id number] COMPLETED:04/02/20 23:40 [facility] [id number] Reason(s): RUQ pain, Hx gallstones, s/p gastric bypass PHYSICIAN: ROLLY NÚÑEZ == R A D I O L O G Y R E P O R T PATIENT HISTORY:ruq pain, hx gall stones, s/p gastric bypass. dose 2751.3 mGy*cm / CORONAL(DICOM Hx)EXAM: CT Abdomen and Pelvis with IV contrastCLINICAL HISTORY: Ruq pain, hx gall stones, s/p gastric bypass. dose 2751.3mGy*cmTECHNIQUE: Axial computed tomography images of the abdomen and pelvis withintravenous contrast.CONTRAST: with intravenous contrast. With; Iodine 0COMPARISON: None provided.FINDINGS:LUNG BASES: The lung bases appear clear. No pleural effusions are seen.LIVER: Unremarkable.GALLBLADDER AND BILE DUCTS: The gallbladder appears within normal limits. Noradioopaque gallstones are seen. No biliary ductal dilatation is evident.PANCREAS: Unremarkable.SPLEEN: Unremarkable.ADRENAL GLANDS: Unremarkable.KIDNEYS, URETERS, AND BLADDER: The kidneys appear within normal limits. There isno hydronephrosis or hydroureter. No urinary calculi are seen.STOMACH AND BOWEL: Post gastric bypass.APPENDIX: No evidence of acute appendicitis on CT examination.PERITONEUM: No free fluid. No free air.LYMPH NODES: No lymphadenopathy is evident.REPRODUCTIVE: Unremarkable as visualized.VASCULATURE: No evidence of abdominal aortic aneurysm.BONES: No aggressive appearing osseous lesion. No acute osseous pathologyevident.IMPRESSIONS:No acute abnormality identified.Post gastric bypass.While performing the above CT examination, radiation dose reduction wasaccomplished utilizing automated exposure control, adjusting of the mA and kVbased on the patient's body size and/or the use of imperative reconstructivetechniques.Electronically Signed By:Denys Haywood M.D. , RadiologistDate/Time: 04/02/20 23:57 Name Value Range Interpretation Code Description Data Judith rce(s) Supporting Document(s) ID Date Data Source [id number] 04/02/2020 11:27:00 [place] [address] ---------NAME--------- NUMBER SEX AGE ADMIT DISC. XRAY# F/C TYPE GREYCORONADO TRAVIS [id number] F 25 04/02/20 SB2 E/R DATE OF : 1995 M/R# [id number] #: [id number] TR-03 LOCATION: EMERGENCY DEPT TRANSCRIBED: 04/02/20 23:27 IF US GALLBLADDER [id number] COMPLETED:04/02/20 23:27 radha 26141 Reason(s): History of Gallstones Nausea w Vomiting RUQ Pain PHYSICIAN: ROLLY FLORENCIO == R A D I O L O G Y R E P O R T PATIENT HISTORY:US GALLBLADDERRUQ PAINEXAM: US Abdomen, Right Upper Quadrant.CLINICAL HISTORY: US GALLBLADDERTECHNIQUE: Right upper quadrant sonography performed with image documentation.COMPARISON: None provided.FINDINGS:LIVER: Within normal limits in size and echogenicity. No mass.GALLBLADDER:. The gallbladder is normal in appearance. No gallstone or wallthickening.COMMON BILE DUCT: No dilation.PANCREAS: The distal pancreas is obscured by bowel gas. The visualized portionof the pancreas appears within normal limits.RIGHT KIDNEY: Unremarkable. Normal renal contours. No renal mass or calculus. Nohydronephrosis.IMPRESSIONS:Unremarkable gallbladder.Electronically Signed By:Denys Haywood M.D. , RadiologistDate/Time: 04/02/20 23:27 Name Value Range Interpretation Code Description Data [facility](s) Supporting Document(s) ID Date Data Source [id number] 04/02/2020 09:26:00 PM EDT [facility] Name Value Range Interpretation Code Description Data Judith e(s) Supporting Document(s) Sodium 140 meq/L 134-153 [facility] Comprehensive [facility] test result [facility] COMPREHENSIVE METABOLIC PANEL Potassium 4.2 meq/L 3.6-5.0 [facility] Chloride 108 meq/L 98-107 [facility] Co2 22 meq/L 22-30 [facility] BUN/Creat 9 8-27 [facility] BUN 7 mg/dL 7-21 [facility] Creatinine 0.8 mg/dL 0.7-1.5 [facility] Glucose 137 mg/dL 65-110 [facility] Total Protein 7.6 g/dL 6.3-8.2 [facility] Globulin 3.6 GM/DL 2.4-3.2 [facility] Albumin 4.0 g/dL 3.9-5.0 [facility] Calcium 8.3 mg/dL 8.4-10.2 [facility] Total Bili Laboratory test result 0.2-1.3 [facility] A/G Ratio 1.1 0.8-2.0 [facility] Sgot/Ast 15 U/L 5-40 [facility] Alkaline Phos 92 U/L 38-126 [facility] SGPT/Alt 11 U/L 7-56 [facility] Anion Gap 10.0 mmol/L 8.0-16.0 [facility] Afr Amer GFR Laboratory test result [facility] Male GFR Interprentation 20-49 yrs >60 mL/min Normal 50-59 yrs >56 mL/min Normal 60-69 yrs >49 mL/min Normal 70-79yrs >42 mL/min Normal 80 and above >35 mL/min Normal Female GFR Interpretation 20-39 yrs >60 mL/min Normal 40-49 yrs >58 mL/min Normal 50-59 yrs >51 mL/min Normal 60-69 yrs >45 mL/min Normal 70-79 yrs >39 mL/min Normal 80 and above >32 mL/min Normal Non-Aa GFR Laboratory test result [facility] Age 25 yrs [facility] ID Date Data Source [id number] 04/02/2020 09:26:00 PM EDT [facility] Name Value Range Interpretation Code Description Data Judith rce(s) Supporting Document(s) Lipoprotein lipase [Enzymatic activity/volume] in Serum or Plasm a 21 U/L 13-60 [facility] ID Date Data Source [id number] 04/02/2020 09:26:00 PM EDT [facility] Name Value Range Interpretation Code Description Data Judith rce(s) Supporting Document(s) HCG Serum Qual Laboratory test result [facility] HCG Serum QL [facility] Laboratory test result [facility] { KIT LOT # [id number] ) { KIT EXP DATE 06.24.21 ) { PROCEDURAL CONTROL VALID ) ID Date Data Source [id number] 04/02/2020 09:26:00 PM EDT [facility] Name Value Range Interpretation Code Description Data Judith rce(s) Supporting Document(s) CBC W/Automated Diff Laboratory test result [facility] COMPLETE BLOOD COUNT WBC 6.1 10^3/uL 4.2-11.0 [facility] RBC 4.14 10^6/uL 4.20-5.40 [facility] Hematocrit 36.5 % 37.0-47.0 [facility] Hemoglobin 11.7 g/dL 12.0-16.0 [facility] MCH 28.3 pg 27.0-34.0 [facility] MCV 88.2 fL 81.0-101 [facility] RDW 12.6 % 11.5-14.5 [facility] MCHC 32.1 g/dL 31.0-36.0 [facility] Platelets 342 10^3/uL 150-450 [facility] [place] 6.8 % 3.0-8.0 [facility] Lymph 41.2 % 25.0-40.0 [facility] MPV 10.3 fL 7.4-10.4 [facility] Neut 46.8 % 37.0-80.0 [facility] Eos 3.9 % 0.0-7.0 [facility] %Ig 0.2 % 0.0-0.0 [facility] Baso 1.1 % 0.0-2.5 [facility] %NRBC 0.0 % 0.0-0.0 [facility] #Neut 2.87 10^3/uL 2.00-6.90 [facility] #Lymph 2.53 10^3/uL 0.60-3.40 [facility] #[place] 0.42 10^3/uL 0.00-0.90 [facility] #Baso 0.07 10^3/uL 0.00-0.20 [facility] #Eos 0.24 10^3/uL 0.00-0.70 [facility] #NRBC 0.00 10^3/uL 0.00-0.00 [facility] Manual Diff Laboratory test result [facility] #Ig 0.01 10^3/uL 0.00-0.10 [facility] RBC Morph Laboratory test result [facility] ID Date Data Source [id number] 04/02/2020 09:26:00 PM EDT [facility] Name Value Range Interpretation Code Description Data Judith rce(s) Supporting Document(s) Lactate [Mass/volume] in Serum or Plasma 3.0 mmol/L 0.2-2.2 [facility] ID Date Data Source [id number] 04/02/2020 09:59:00 PM EDT [facility] Name Value Range Interpretation Code Description Data Judith rce(s) Supporting Document(s) COMPREHENSIVE METABOLIC PANEL [facility] COMPREHENSIVE METABOLIC PANEL Sodium [Moles/volume] in Serum or Plasma 140 mEq/L 134 - 153 [facility] Potassium [Moles/volume] in Serum or Plasma 4.2 mEq/L 3.6 - 5.0 [facility] Chloride [Moles/volume] in Serum or Plasma 108 mEq/L 98 - 107 H [facility] Carbon dioxide, total [Moles/volume] in Serum or Plasma 22 MEQ/L 22 - 30 [facility] Glucose [Mass/volume] in Serum or Plasma 137 MG/DL 65 - 110 H [facility] BUN 7 MG/DL 7 - 21 [facility] al Creatinine [Mass/volume] in Serum or Plasma 0.8 MG/DL 0.7 - 1.5 [facility] BUN/CREAT 9 8 - 27 [facility] Protein [Mass/volume] in Serum or Plasma 7.6 G/DL 6.3 - 8.2 [facility] Albumin [Mass/volume] in Serum or Plasma 4.0 G/DL 3.9 - 5.0 [facility] Globulin [Mass/volume] in Serum by calculation 3.6 GM/DL 2.4 - 3.2 H [facility] A/G RATIO 1.1 0.8 - 2.0 [facility] Calcium [Mass/volume] in Serum or Plasma 8.3 MG/DL 8.4 - 10.2 L [facility] Bilirubin.total [Mass/volume] in Serum or Plasma <0.7 MG/DL 0.2 - 1.3 [facility] Alkaline phosphatase [Enzymatic activity/volume] in Serum or Plasma 92 U/L 38 - 126 [facility] Aspartate aminotransferase [Enzymatic activity/volume] in Serum or Plasma 15 U/L 5 - 40 [facility] Alanine aminotransferase [Enzymatic activity/volume] in Seru m or Plasma 11 U/L 7 - 56 [facility] Anion gap 3 in Serum or Plasma 10.0 mmol/L 8.0 - 16.0 [facility] AGE 25 yrs [facility] NON-AA GFR >60 mL/min [facility] AFR AMER GFR >60 mL/min [facility] Male GFR In terprentation 20-49 yrs >60 mL/min Normal 50-59 yrs >56 mL/min Normal 60-69 yrs >49 mL/min Normal 70-79yrs >42 mL/min Normal 80 and above >35 mL/min Normal Female GFR Interpretation 20-39 yrs >60 mL/min Normal 40-49 yrs >58 mL/min Normal 50-59 yrs >51 mL/min Normal 60-69 yrs >45 mL/min Normal 70-79 yrs >39 mL/min Normal 80 and above >32 mL/min Normal ID Date Data Source [id number] 04/02/2020 09:59:00 PM T [facility] Name Value Range Interpretation Code Description Data Judith rce(s) Supporting Document(s) Lipase [Enzymatic activity/volume] in Serum or Plasma 21 U/L 13 - 60 [facility] ID Date Data Source [id number] 04/02/2020 09:52:00 PM T [facility] Name Value Range Interpretation Code Description Data Judith rce(s) Supporting Document(s) HCG SERUM QUAL NEGATIVE NORMAL: NEGATIVE [facility] HCG SERUM QL REENTER NEGATIVE NORMAL: NEGATIVE [facility] { KIT LOT # [id number] ){ KIT EXP DATE 06.24.21 ){ PROCEDURAL CONTROL VALID ) ID Date Data Source [id number] 04/02/2020 09:52:00 PM [facility] Name Value Range Interpretation Code Description Data Judith rce(s) Supporting Document(s) CBC W/AUTOMATED DIFF [facility] COMPLETE BLOOD COUNT Leukocytes [#/volume] in Blood by Automated count 6.1 10^3/uL 4.2 - 1 1.0 [facility] Erythrocytes [#/volume] in Blood by Automated count 4.14 10^6/uL 4. 20 - 5.40 L [facility] Hemoglobin [Mass/volume] in Blood 11.7 g/dL 12.0 - 16.0 L [facility] Hematocrit [Volume Fraction] of Blood by Automated count 36.5 % 3 7.0 - 47.0 L [facility] Erythrocyte mean corpuscular volume [Entitic volume] by Auto mated count 88.2 fL 81.0 - 101 [facility] Erythrocyte mean corpuscular hemoglobin [Entitic mass] by Automated count 28.3 pg 27.0 - 34.0 [facility] Erythrocyte mean corpuscular hemoglobin concentration [Mass/volume] by Automated count 32.1 g/dL 31.0 - 36.0 [facility] Erythrocyte distribution width [Ratio] by Automated count 12.6 % 11.5 - 14.5 [facility] Platelets [#/volume] in Blood by Automated count 342 10^3/uL 150 - 45 0 [facility] Platelet mean volume [Entitic volume] in Blood by Automated count 10.3 fL 7.4 - 10.4 [facility] Neutrophils/100 leukocytes in Blood by Automated count 46.8 % 37. 0 - 80.0 [facility] Lymphocytes/100 leukocytes in Blood by Manual count 41.2 % 25.0 - 40.0 H [facility] Monocytes/100 leukocytes in Blood by Automated count 6.8 % 3.0 - 8.0 [facility] Eosinophils/100 leukocytes in Blood by Automated count 3.9 % 0.0 - 7.0 [facility] Basophils/100 leukocytes in Blood by Automated count 1.1 % 0.0 - 2.5 [facility] %IG 0.2 % 0.0 - 0.0 H [facility] al %NRBC 0.0 % 0.0 - 0.0 [facility] al Neutrophils [#/volume] in Blood by Automated count 2.87 10^3/uL 2.00 - 6.90 [facility] Lymphocytes [#/volume] in Blood by Automated count 2.53 10^3/uL 0.60 - 3.40 [facility] Monocytes [#/volume] in Blood by Automated count 0.42 10^3/uL 0.00 - 0.90 [facility] Eosinophils [#/volume] in Blood by Automated count 0.24 10^3/uL 0.00 - 0.70 [facility] Basophils [#/volume] in Blood by Automated count 0.07 10^3/uL 0.00 - 0.20 [facility] #IG 0.01 10^3/uL 0.00 - 0.10 [facility] #NRBC 0.00 10^3/uL 0.00 - 0.00 [facility] MANUAL DIFF NOT INDICATED [facility] RBC MORPH NOT INDICATED [facility] ID Date Data Source [id number] 04/02/2020 09:44:00 PM EDT [facility] Name Value Range Interpretation Code Description Data Judith rce(s) Supporting Document(s) Lactate [Moles/volume] in Serum or Plasma 3.0 MMOL/L 0.2 - 2.2 H [facility] ID Date Data Source [id number] 03/26/2020 01:07:00 PM EDT [facility] NO GROWTH AFTER 120 HOURS (5 Days) Proc edure Performed By: [facility] [address] [place] [address] Director: Larry Fowler Name Value Range Interpretation Code Description Data Judith rce(s) Supporting Document(s) ID Date Data Source [id number] 03/26/2020 01:07:00 PM EDT [facility] NO GROWTH AFTER 120 HOURS (5 Days) Proc edure Performed By: [facility] [address] [place] [address] Director: Larry Fowler Name Value Range Interpretation Code Description Data Judith rce(s) Supporting Document(s) ID Date Data Source [id number] 03/26/2020 12:21:00 PM EDT [facility] NO GROWTH AFTER 120 HOURS (5 Days) Pr ocedure Performed By: [facility] [address] [place] [address] Director: Larry Fowler Name Value Range Interpretation Code Description Data Judith rce(s) Supporting Document(s) ID Date Data Source [id number] 03/26/2020 12:21:00 PM EDT [facility] NO GROWTH AFTER 120 HOURS (5 Days) Pr ocedure Performed By: [facility] [address] [place] [address] Director: Larry Fowler Name Value Range Interpretation Code Description Data Judith rce(s) Supporting Document(s) ID Date Data Source [id number] 03/20/2020 11:15:00 PM EDT [facility] Name Value Range Interpretation Code Description Data Judith rce(s) Supporting Document(s) Lactic Acid 0.4-2.0 Normal (applies to non-numeric resu lts) [facility] ID Date Data Source [id number] 03/20/2020 11:15:00 PM EDT [facility] Name Value Range Interpretation Code Description Data Judith rce(s) Supporting Document(s) Sodium 138 mmol/L 136-145 Normal (applies to non-numeric resul ts) [facility] Potassium 3.5-5.1 Normal (applies to non-numeric resul ts) [facility] Chloride 104 mmol/L 98-107 Normal (applies to non-numeric resul ts) [facility] Carbon Dioxide CO2 21-32 Normal (applies to non-numer ic results) [facility] Anion Gap 5.0-16.0 Normal (applies to non-numeric resul ts) [facility] BUN 8 mg/dL 7-18 Normal (applies to non-numeric results) [facility] Creatinine,Serum 0.7-1.2 Normal (applies to non-numeric results) [facility] GFR >60 Normal (applies to non-numeric results) [facility] Glucose Level 97 mg/dL 60-99 Normal (applies to non-numeric re sults) [facility] Reference range is only applicable when patient is fasting Note the following drug interference: Sulfasalazine Sulfapyridine Can see falsely depressed Can see falsely elevated result with up to 17% results with up to 11% decrease in measurement increase in measurement Recommend patients be collected for this test prior to administration of either drug. Calcium 8.5-10.1 Below low normal [facility] Bilirubin,Total 0.1-1.9 Normal (applies to non-numeric results) [facility] SGOT(AST) 14 U/L 15-37 Below low normal [facility] spital Note the following drug interference: Sulfasalazine Sulfapyridine Can see falsely depressed Can see falsely elevated result with up to 10% results with up to 10% decrease in measurement increase in measurement Recommend patients be collected for this test prior to administration of either drug. SGPT(ALT) 26 U/L 12-78 Normal (applies to non-numeric resul ts) [facility] Note the following drug interference: Sulfasalazine Sulfapyridine Can see falsely depressed Can see falsely elevated result with up to 29% results with up to 10% decrease in measurement increase in measurement Recommend patients be collected for this test prior to administration of either drug. Alkaline Phosphatase 104 U/L 38-126 Normal (applies to non-num gina results) [facility] can increase Alkaline Phosp le vels up to 2 times the normal adult value. Normal values for children and adolescents are 2 to 3 times the normal adult value. Total Protein 6.0-8.2 Normal (applies to non-numeric re sults) [facility] Albumin Level 3.4-5.0 Below low normal [facility] ID Date Data Source [id number] 03/20/2020 11:15:00 PM EDT [facility] Name Value Range Interpretation Code Description Data Judith rce(s) Supporting Document(s) Amylase 56 U/L 25-115 Normal (applies to non-numeric resul ts) [facility] ID Date Data Source [id number] 03/20/2020 11:15:[address] [facility] Name Value Range Interpretation Code Description Data Judith rce(s) Supporting Document(s) Lipase 90 U/L 73-393 Normal (applies to non-numeric resul ts) [facility] ID Date Data Source [id number] 03/20/2020 11:00:[address] [facility] Name Value Range Interpretation Code Description Data Judith rce(s) Supporting Document(s) White Blood Count 3.5-10.5 Normal (applies to non-numeri c results) [facility] Red Blood Count 3.90-5.00 Normal (applies to non-numeric results) [facility] Hemoglobin 12.0-15.5 Normal (applies to non-numeric resul ts) [facility] Hematocrit 34.9-44.5 Normal (applies to non-numeric resul ts) [facility] Mean Corpuscular Volume 81.2-95.1 Normal (applies to non- numeric results) [facility] Mean Corpuscular Hgb 25.6-32.2 Normal (applies to non-num gina results) [facility] Mean Corpuscular Hgb Conc 32.0-36.0 Normal (applies to no n-numeric results) [facility] Red Cell Distribution Width 11.9-15.5 Normal (appli es to non-numeric results) [facility] Platelet Count 367 x10 3/uL 150-450 Normal (applies to non-numeric results) [facility] Mean Platelet Volume 9.4-12.4 Normal (applies to non-num gina results) [facility] Neutrophils% (Auto) 31.0-71.0 Normal (applies to non-nume florencio results) [facility] Lymphocytes% (Auto) 20.0-55.0 Normal (applies to non-nume florencio results) [facility] Monocytes% (Auto) 4.0-12.0 Normal (applies to non-numeri c results) [facility] Eosinophils% (Auto) 1.0-8.0 Normal (applies to non-nume florencio results) [facility] Basophils% (Auto) 0.0-2.0 Normal (applies to non-numeri c results) [facility] Immature Granulocytes% (Auto) 0.0-2.0 Normal (sade lies to non-numeric results) [facility] Neutrophils# (Auto) 1.50-6.20 Normal (applies to non-nume florencio results) [facility] Lymphocytes# (Auto) 1.20-4.00 Normal (applies to non-nume florencio results) [facility] Monocytes# (Auto) 0.00-0.90 Normal (applies to non-numeri c results) [facility] Eosinophils# (Auto) 0.00-0.50 Normal (applies to non-nume florencio results) [facility] Basophils# (Auto) 0.00-0.20 Normal (applies to non-numeri c results) [facility] Immature Granulocytes# (Auto) 0.00-7.00 No rmal (applies to non-numeric results) [facility] ID Date Data Source [id number] 03/21/2020 12:01:00 AM EDT [facility] Imaging Services Department Imaging Report [address], [place] [address] %(RAD)RES..mtdd.print.filter("line") Name: TRAVIS MCCLELLAN : 1995 Age/Sex: 25F Ordering Provider: JOHNNY Londono Med Rec #: [id number] Reg Status: REG ER Room #: Date of Service: 03/20/20 Report Number: [id number] cc:JOHNNY Londono; PCP None Send Report To: EXAM: CT Abdomen and Pelvis with IV contrast CLINICAL HISTORY: GH rlq abd pain TECHNIQUE: Axial computed tomography images of the abdomen and pelvis with intravenous contrast. CONTRAST: with intravenous contrast. With; ISOVUE 3 00, 85ML COMPARISON: None provided. FINDINGS: LUNG BASES: The lung bases appear clear. No pleural effusions are seen. LIVER: Unremarkable. GALLBLADDER AND BILE DUCTS: The gallbladder appears within normal limits. No radioopaque gallstones are seen. No biliary ductal dilatation is evident. PANCREAS: Unremarkable. SPLEEN: Unremarkable. ADRENAL GLANDS: Unremarkable. KIDNEYS, URETERS, AND BLADDER: The kidneys appear within normal limits. There is no hydronephrosis or hydroureter. No urinary calculi are seen. STOMACH AND BOWEL: Post gastric bypass. APPENDIX: No evidence of acute appendicitis on CT examination. PERITONEUM: No free fluid. No free air. LYMPH NODES: There are mildly enlarged right lower quadrant lymph nodes. REPRODUCTIVE: Unremarkable as visualized. VASCULATURE: No evidence of abdominal aortic aneurysm. BONES: No aggressive appearing osseous lesion. No acute osseous pathology evident.Impressions: No evidence of appendicitis. Nonspecific mildly enlarged right lower quadrant lymph nodes. Post gastric bypass. Time portable performed: Fluoroscopy time in seconds: Number of Exposures: Contrast Agent in ml: Isovue 300 Method of Administration: Existing IV REPORT SIGNATURE ON FILE Reported By: Denys Haywood MD 03/21/20 0001 Dictation Date/Time: 03/21/202020 Transcribed Date/Time: 03/21/202020 [facility]: Name Value Range Interpretation Code Description Data Judith rce(s) Supporting Document(s) ID Date Data Source [id number] 03/16/2020 09:47:12 PM EDT [facility] Name Value Range Interpretation Code Description Data Judith rce(s) Supporting Document(s) COLOR [facility] APPEARANCE [facility] SPEC GRAV URINE (1.003-1.030) [facility] PH URINE 6.5 (5.0-7.5) [facility] LEUK ESTERASE (NEG) [facility] CRITERIA FOR CULTURE NOT MET.CULTURE CAN BE ADDED WITHIN 36 HOURS OFCOLLECTION. NITRITE URINE (NEG) [facility] PROTEIN URINE (NEG) [facility] GLUCOSE URINE (NEG) [facility] KETONE URINE (NEG) [facility] UROBILINOGEN 1.0 mg/dL (0-1.0) [facility] BILIRUBIN URINE (NEG) [facility] BLOOD/HGB URINE (NEG) [facility] ID Date Data Source [id number] 03/16/2020 09:09:00 PM EDT [facility] DATE OF EXAM: 03/16/2020CT OF THE ABDOME N AND PELVIS CLINICAL INDICATION: Right lower quadrant pain. TECHNIQUE: Helical axial images of the abdomen and pelvis were obtained from lung bases through the greater trochanters and displayed at five and 1 mm interval. Images were obtained after the intravenous administration of 100 mL Omnipaque 300 One or more of the following dose reduction techniques were utilized in effectively lowering the radiation dose for this examination: Automated Exposure Control, Adjustment of the mA and/or kV according to patient size, or Iterative reconstruction. COMPARISON: None available. FINDINGS: The liver, spleen, pancreas, adrenal glands and kidneys are unremarkable. The gallbladder is present. The patient is status post Kavon-en-Y gastric bypass. There are no dilated loops of bowel. No free fluid or free air is identified. The appendix is seen in the right lower quadrant and is normal. A small cluster of borderline in size mesenteric lymph nodes are prese nt within the right lower quadrant. In the pelvis, the uterus is present. There are no adnexal masses. The urinary bladder is grossly unremarkable. There is no acute fracture or suspicious osseous lesion. The lung bases are clear. IMPRESSION: There is a cluster of borderline in size mesenteric lymph nodes in the right lower quadrant which can be seen in the setting of mesenteric adenitis. Otherwise, no evidence for acute intra-abdominal or intrapelvic disease. X1End of diagnostic report for accession: [id number] Interpreted: Marielos Wang MDTranscribed: 03/16/2020 09:05 PMSigned: 03/16/2020 09:09 PM Marielos Wang MD [facility] # [id number] [facility] # [id number] Name Value Range Interpretation Code Description Data Judith rce(s) Supporting Document(s) ID Date Data Source [id number] 03/16/2020 08:17:00 PM EDT [facility] DATE OF EXAM: 03/16/2020ULTRASOUND PELVI S INDICATION: Right lower quadrant pain. TECHNIQUE: Multiple real-time sonographic images of the uterus and ovaries were obtained transabdominally. FINDINGS: The uterus measures 8.4 x 4.3 x 2.9 cm. The endometrium is not thickened measuring 4 mm. The right ovary measures 3.0 x 2.4 x 1.5 cm. A small right ovarian follicle is noted. The left ovary measures 2.8 x 2.2 x 1.9 cm. Bilateral intraovarian blood flow is identified. The urinary bladder is grossly unremarkable. There is no hydronephrosis. IMPRESSION: Unremarkable sonographic examination of the female pelvis. X1End of diagnostic report for accession: [id number] Interpreted: Marielos Wang MDTranscribed: 03/16/2020 08:16 PMSigned: 03/16/2020 08:17 PM Marielos Wang MD [facility] # [id number] BILL # [id number] Name Value Range Interpretation Code Description Data Judith rce(s) Supporting Document(s) ID Date Data Source [id number] 03/16/2020 07:46:51 PM EDT [facility] Name Value Range Interpretation Code Description Data Judith rce(s) Supporting Document(s) HCG, QUAL. SERUM (NEG) [facility] ID Date Data Source [id number] 03/16/2020 07:45:06 PM EDT [facility] Name Value Range Interpretation Code Description Data Judith rce(s) Supporting Document(s) SODIUM 141 mmol/L (136-145) [facility] POTASSIUM 4.2 mmol/L (3.6-5.2) [facility] CHLORIDE 111 mmol/L (100-108) H [facility] CO2 25 mmol/L (22-31) [facility] ANION GAP 5 mmol/L (7-16) L [facility] UREA NITROGEN 6 mg/dL (7-24) L [facility] CREATININE 0.64 mg/dL (0.60-1.00) [facility] BUN/CREAT RATIO 9.4 RATIO (10.0-20.0) L [facility] GLUCOSE 79 mg/dL (70-99) [facility] CALCIUM 7.5 mg/dL (8.4-10.2) L [facility] GFR >60 ml/min/1.73m2 (>59) [facility] GFR ( AMER) >60 ml/min/1.73m2 (>59) [facility] GFR INTERPRETATION [facility] --NORMAL KIDNEY FUNCTION OR MILD DISEASE - GFR >OR= 60CHRONIC KIDNEY DISEASE - GFR 15 - 59RENAL FAILURE - GFR <15 Est. GFR calculation based on the MDRDstudy equation, which assumes a steadystate for creatinine. Est. GFR should notbe used for medication dosing. ID Date Data Source [id number] 03/16/2020 07:35:59 PM EDT [facility] Name Value Range Interpretation Code Description Data Judith rce(s) Supporting Document(s) WBC 5.0 10*3/uL (4.1-11.0) [facility] RBC 4.10 10*6/uL (4.00-5.40) [facility] HGB 11.7 g/dL (12.0-16.0) L [facility] HCT 36.5 % (36.0-47.0) [facility] MCV 89.0 fL (80.0-95.0) [facility] MCH 28.7 pg (27.0-32.0) [facility] MCHC 32.2 g/dL (32.0-36.0) [facility] RDW 13.4 % (10.5-14.5) [facility] PLT 335 10*3/uL (150-450) [facility] MPV 8.0 fL (7.1-10.7) [facility] NEUT % 40.6 % (35.0-75.0) [facility] LYMPH % 45.6 % (16.0-52.0) [facility] MONO % 8.8 % (0.0-8.0) H [facility] EOS % 3.8 % (0.0-5.0) [facility] BASO % 1.2 % (0.0-4.0) [facility] NEUT # 2.0 10*3/uL (1.8-7.7) [facility] LYMPH # 2.3 10*3/uL (1.2-4.8) [facility] MONO # 0.4 10*3/uL (0.0-0.8) [facility] Eosinophils [#/volume] in Blood by Automated count 0.2 10*3/uL (0.0-0 .5) [facility] BASO # 0.1 10*3/uL (0.0-0.2) [facility] ID Date Data Source [id number] 03/10/2020 08:10:54 PM EDT [facility] - CORE SPEC EXP DATE 03/13/2020PATI ENT ABO/Rh O POSITIVEANTIBODY SCREEN NEGATIVETESTING SITE PERFORMED AT [address] [place], [place] [address]OOD [employer] [facility] [facility] COMMENT BLOOD TYPE CONFIRMED. Name Value Range Interpretation Code Description Data Judith rce(s) Supporting Document(s) HCG,QUANT PREG 85 mU/mL [facility] INTERPRETATION:LESS THAN 6 NEGATIVE 6 - 10 BORDERLINE (SUGGEST REPEAT IN 48 HOURS) APPROX HCG RANGE WEEKS POST LMP 11 - 130 3 - 4 WEEKS 75 - 2600 4 - 5 WEEKS 850 - 42650 5 - 6 WEEKS 4000 - 302134 6 - 7 [id number] - [id number] 7 - 12 [id number] - [id number] 12 - 16 WEEKS 1400 - 59880 16 - 29 WEEKS 940 - 69749 29 - 41 WEEKS ID Date Data Source [id number] 03/10/2020 08:10:54 PM EDT [facility] - CORE SPEC EXP DATE 03/13/2020PATI ENT ABO/Rh O POSITIVEANTIBODY SCREEN NEGATIVETESTING SITE PERFORMED AT [address] [place], [place] [address]OOD [employer] [facility] COMMENT BLOOD TYPE CONFIRMED. Name Value Range Interpretation Code Description Data Judith rce(s) Supporting Document(s) PROGESTERONE @ 0.90 ng/mL [facility] PROGESTERONE REFERENCE RANGE:MALE <1.97 NG/MLFEMALEMENSTRUATING FOLLICULAR 0.21 - 1.70 NG/ML LUTEAL 2.25 - 24.20 NG/ML MID-LUTEAL 8.76 - 21.60 NG/MLPOSTMENOPAUSAL < 0.90 NG/ML 1ST TRIMESTER 11.40 - 41.00 NG/ML 2ND TRIMESTER 13.80 - 156.00 NG/ML 3RD TRIMESTER >51.40 NG/ML ID Date Data Source [id number] 03/10/2020 11:37:44 PM EDT [facility] SPEC EXP DATE 03/13/2020PATI ENT ABO/Rh O POSITIVEANTIBODY SCREEN NEGATIVETESTING SITE PERFORMED AT [address] [place] [address] COMMENT BLOOD TYPE CONFIRMED. Name Value Range Interpretation Code Description Data Judith rce(s) Supporting Document(s) TYPE AND SCREEN [facility] PATIENT ABO/Rh O POSITIVE ID Date Data Source [id number] 03/04/2020 09:52:49 PM EDT [facility] SPEC EXP DATE 03/13/2020PATI ENT ABO/Rh O POSITIVEANTIBODY SCREEN NEGATIVETESTING SITE PERFORMED AT [address] [place] [address] COMMENT BLOOD TYPE CONFIRMED. Name Value Range Interpretation Code Description Data Judith rce(s) Supporting Document(s) FREE THYROXINE @ 1.60 ng/dL (0.76-1.46) H [facility] ID Date Data Source [id number] 03/04/2020 09:52:49 PM EDT [facility] SPEC EXP DATE 03/13/2020PATI ENT ABO/Rh O POSITIVEANTIBODY SCREEN NEGATIVETESTING SITE PERFORMED AT [address] [place] [address] COMMENT BLOOD TYPE CONFIRMED. Name Value Range Interpretation Code Description Data Judith rce(s) Supporting Document(s) TSH,ULTRASENSITIVE @ 0.623 mIU/L (0.360-4.170) H [facility] ID Date Data Source [id number] 08/03/2019 06:26:43 PM EST [facility] SPEC EXP DATE 03/13/2020PATI ENT ABO/Rh O POSITIVEANTIBODY SCREEN NEGATIVETESTING SITE PERFORMED AT [address] [place], [place] [address]OOD BANK COMMENT BLOOD TYPE CONFIRMED. Name Value Range Interpretation Code Description Data Judith rce(s) Supporting Document(s) WBC 4.5 10*3/uL (4.1-11.0) [facility] RBC 4.40 10*6/uL (4.00-5.40) [facility] C[facility] HGB 13.0 g/dL (12.0-16.0) [facility] HCT 38.9 % (36.0-47.0) [facility] MCV 88.4 fL (80.0-95.0) [facility] MCH 29.4 pg (27.0-32.0) [facility] MCHC 33.3 g/dL (32.0-36.0) [facility] RDW 13.3 % (10.5-14.5) [facility] PLT 287 10*3/uL (150-450) [facility] MPV 9.7 fL (7.1-10.7) [facility] C[facility] NEUT % 49.5 % (35.0-75.0) [facility] LYMPH % 38.2 % (16.0-52.0) [facility] MONO % 7.0 % (0.0-8.0) [facility] C[facility] EOS % 4.2 % (0.0-5.0) [facility] C[facility] BASO % 1.1 % (0.0-4.0) [facility] C[facility] NEUT # 2.2 10*3/uL (1.8-7.7) [facility] LYMPH # 1.7 10*3/uL (1.2-4.8) [facility] MONO # 0.3 10*3/uL (0.0-0.8) [facility] Eosinophils [#/volume] in Blood by Automated count 0.2 10*3/uL (0.0-0 .5) [facility] BASO # 0.0 10*3/uL (0.0-0.2) [facility] [place] Data Source [id number] 08/03/2019 06:35:35 PM EST [facility] - CORE SPEC EXP DATE 03/13/2020PATI ENT ABO/Rh O POSITIVEANTIBODY SCREEN NEGATIVETESTING SITE PERFORMED AT [address] COMMENT BLOOD TYPE CONFIRMED. Name Value Range Interpretation Code Description Data Judith rce(s) Supporting Document(s) PROLACTIN @ 11.6 ng/mL [facility] Prolactin Reference Range:Males 2.5 - 17.4 ng/mLFemales Non- 2.2 - 30.3 ng/mL 8.1 - 347.6 ng/mL Postmenopausal 0.7 - 31.5 ng/mL ID Date Data Source [id number] 08/03/2019 06:52:23 PM EST [facility] - CORE SPEC EXP DATE 03/13/2020[facility] ENT ABO/Rh O POSITIVEANTIBODY SCREEN NEGATIVETESTING SITE PERFORMED AT [address] COMMENT BLOOD TYPE CONFIRMED. Name Value Range Interpretation Code Description Data Judith rce(s) Supporting Document(s) DHEA SULFATE @ 83 ug/dL (63-380) [facility] ID Date Data Source [id number] 08/03/2019 07:21:10 PM EST [facility] - CORE SPEC EXP DATE 03/13/2020PATI ENT ABO/Rh O POSITIVEANTIBODY SCREEN NEGATIVETESTING SITE PERFORMED AT [address] COMMENT BLOOD TYPE CONFIRMED. Name Value Range Interpretation Code Description Data Judith rce(s) Supporting Document(s) HEMOGLOBIN A1C @ 5.1 % (4.0-6.0) [facility] - CORE Performed using Siemens [place] immunoassa y.Care must be taken when interpreting [id number] in patients with a hemoglobin variantor decreased erythrocyte lifespan. Values 5.7 - 6.4% suggest prediabetes.Values >=6.5% are diagnostic for diabetes.REFERENCE: DIABETES CARE 2018: 41(S13-S27). EST AVERAGE GLUCOSE 100 mg/dL Laboratory [facility] ID Date Data Source [id number] 08/09/2019 09:01:25 AM EST Laboratory [facility] SPEC EXP DATE 03/13/2020PATI ENT ABO/Rh O POSITIVEANTIBODY SCREEN NEGATIVETESTING SITE PERFORMED AT [address] [place] [address] BANK COMMENT BLOOD TYPE CONFIRMED. Name Value Range Interpretation Code Description Data [facility] rce(s) Supporting Document(s) TESTOSTERONE 30 Laboratory [facility] Reference range: 9 to 55Unit: ng/dL Tota l Testosterone, Females 18 years and older Premenopausal 9-55 ng/dL Postmenopausal 5-32 ng/dL Total testosterone values may not reflect optimal concentrations in all individuals. Free or bioavailable testosterone measurements may provide supportive information. REFERENCE INTERVAL: Testosterone, LC-MS/MS Access complete set of age- and/or gender-specific reference intervals for this test in the [facility] ([facility]). Test developed and characteristics determined by [employer]. See Compliance Statement B: [facility]/CS Performed by [employer], [address] [place] [address] [email or web address], Jack Christie MD, Lab. Director ID Date Data Source [id number] 03/06/2020 09:42:00 PM EDT [facility] Name Value Range Interpretation Code Description Data [facility] rce(s) Supporting Document(s) Sodium 138 mmol/L 136-145 Normal (applies to non-numeric resul ts) [facility] Potassium 3.5-5.1 Normal (applies to non-numeric resul ts) [facility] Chloride 105 mmol/L 98-107 Normal (applies to non-numeric resul ts) [facility] Carbon Dioxide CO2 21-32 Normal (applies to non-numer ic results) [facility] Anion Gap 5.0-16.0 Normal (applies to non-numeric resul ts) [facility] BUN 7 mg/dL 7-18 Normal (applies to non-numeric results) [facility] Creatinine,Serum 0.7-1.2 Normal (applies to non-numeric results) [facility] GFR >60 Normal (applies to non-numeric results) [facility] Glucose Level 79 mg/dL 60-99 Normal (applies to non-numeric re sults) [facility] Reference range is only applicable when patient is fasting Note the following drug interference: Sulfasalazine Sulfapyridine Can see falsely depressed Can see falsely elevated result with up to 17% results with up to 11% decrease in measurement increase in measurement Recommend patients be collected for this test prior to administration of either drug. Calcium 8.5-10.1 Below low normal [facility] spital ID Date Data Source [id number] 03/06/2020 09:42:00 PM EDT [facility] Name Value Range Interpretation Code Description Data Judith rce(s) Supporting Document(s) Beta HCG,Quantitative 144 mIU/mL Normal (applies to non-nu meric results) [facility] Non-preganant:0-5 mIU/mL 0. 2- Week: 5-50 mIU/mL 1-2 Weeks: 50-500 mIU/mL 2-3 Weeks: 100-5,000 mIU/mL 3-4 Weeks: 500-10,000 mIU/mL 4-5 Weeks: 1,000-50,000 mIU/mL 5-6 Weeks: 10,000-100,000 mIU/mL 6-8 Weeks: 15,000-200,000 mIU/mL 2-3 Months: 10,000-100,000 mIU/mL ID Date Data Source [id number] 03/06/2020 09:19:00 PM EDT [facility] Name Value Range Interpretation Code Description Data Judith rce(s) Supporting Document(s) White Blood Count 3.5-10.5 Normal (applies to non-numeri c results) [facility] Red Blood Count 3.90-5.00 Normal (applies to non-numeric results) [facility] Hemoglobin 12.0-15.5 Normal (applies to non-numeric resul ts) [facility] Hematocrit 34.9-44.5 Normal (applies to non-numeric resul ts) [facility] Mean Corpuscular Volume 81.2-95.1 Normal (applies to non- numeric results) [facility] Mean Corpuscular Hgb 25.6-32.2 Normal (applies to non-num gina results) [facility] Mean Corpuscular Hgb Conc 32.0-36.0 Normal (applies to no n-numeric results) [facility] Red Cell Distribution Width 11.9-15.5 Normal (appli es to non-numeric results) [facility] Platelet Count 340 x10 3/uL 150-450 Normal (applies to non-numeric results) [facility] Mean Platelet Volume 9.4-12.4 Normal (applies to non-num gina results) [facility] Neutrophils% (Auto) 31.0-71.0 Normal (applies to non-nume florencio results) [facility] Lymphocytes% (Auto) 20.0-55.0 Normal (applies to non-nume florencio results) [facility] Monocytes% (Auto) 4.0-12.0 Normal (applies to non-numeri c results) [facility] Eosinophils% (Auto) 1.0-8.0 Normal (applies to non-nume florencio results) [facility] Basophils% (Auto) 0.0-2.0 Normal (applies to non-numeri c results) [facility] Immature Granulocytes% (Auto) 0.0-2.0 Normal (sade lies to non-numeric results) [facility] Neutrophils# (Auto) 1.50-6.20 Normal (applies to non-nume florencio results) [facility] Lymphocytes# (Auto) 1.20-4.00 Normal (applies to non-nume florencio results) [facility] Monocytes# (Auto) 0.00-0.90 Normal (applies to non-numeri c results) [facility] Eosinophils# (Auto) 0.00-0.50 Normal (applies to non-nume florencio results) [facility] Basophils# (Auto) 0.00-0.20 Normal (applies to non-numeri c results) [facility] Immature Granulocytes# (Auto) 0.00-7.00 No rmal (applies to non-numeric results) [facility] ID Date Data Source [id number] 03/07/2020 08:39:00 AM EDT [facility] aye [facility] Imaging Services Department Imaging Report [address], [place] [address] %(RAD)RES..mtdd.print.filter("line") Name: TRAVIS MCCLELLAN : 1995 Age/Sex: 25F Ordering Provider: JOHNNY Mckeon Med Rec #: [id number] Reg Status: DEP ER Room #: Date of Service: 03/06/20 Report Number: [id number] cc:PCP None Send Report To: [id number] US/US Transvaginal OB Reason for exam: right sided abd pain FINDINGS: LMP: 01/25/20 = EDC 10/31/20 EGA = 5 wks 6 days The uterus is grossly normal. There is no intrauterine visualized. An old scar is noted anteriorly. A 3.8 x 2.8 cm right ovarian cyst demonstrates increasing echogenicity compared to the prior exam four days ago. This may be due to mild hemorrhage or technical factors. There is no evidence of torsion. IMPRESSION: No intra or extrauterine visualized. Right ovarian cyst again visualized, this time with increasing low level echogenicity, possibly dueto hemorrhage versus technical factors. Time portable performed: Fluoroscopy time in seconds: Number of Exposures: Contrast Agent in ml: Method of Administration: REPORT SIGNATURE ON FILE Reported By: Bal Salgado MD <Electronically signed by Bal Salgado MD> 03/07/20 1132 Dictation Date/Time: 03/06/20 6670 Transcribed Date/Time: 03/07/20 0839 Transcri ptionist: PANFILOROGELIO Name Value Range Interpretation Code Description Data Judith rce(s) Supporting Document(s) ID Date Data Source [id number] 03/02/2020 01:31:[address] [facility] Name Value Range Interpretation Code Description Data Judith rce(s) Supporting Document(s) Beta HCG,Quantitative 43 mIU/mL Normal (applies to non-nu meric results) [facility] Non-preganant:0-5 mIU/mL 0. 2- Week: 5-50 mIU/mL 1-2 Weeks: 50-500 mIU/mL 2-3 Weeks: 100-5,000 mIU/mL 3-4 Weeks: 500-10,000 mIU/mL 4-5 Weeks: 1,000-50,000 mIU/mL 5-6 Weeks: 10,000-100,000 mIU/mL 6-8 Weeks: 15,000-200,000 mIU/mL 2-3 Months: 10,000-100,000 mIU/mL ID Date Data Source [id number] 03/02/2020 03:47:00 PM [facility] Imaging Services Department Imaging Report [address] [place] [address] %(RAD)RES..mtdd.print.filter("line") Name: TRAVIS HUMPHRIES : 1995 Age/Sex: 25F Ordering Provider: JOHNNY Londono Med Rec #: [id number] Reg Status: [facility] ER Room #: Date of Service: 03/02/20 Report Number: [id number] cc:JOHNNY Londono; PCP None Send Report To: [id number] US/US OB Limited Study Reason for exam: pelvic pain Comparison: 11-28-19 FINDINGS: LMP: 01-29-20 = EDC 10-31-20 EGA = 5 wks 2 days Earliest U/S Today = EDC EGA= wks days The uterus is normal in size and echotexture. Endometrium measures up to 1 cm and is homogeneous. No gestational sac is identified. By last menstrual period the patient's gestational age is 5w 2d (LMP 01-29-20). Right and left ovaries are identified, with a simple right ovarian cyst measuring up to 3.7 cm. The right ovary measures 4.1 x 3.8 x 3.7 cm. The left ovary measures 3.4 x 2.1 x 2 cm. Left ovarian follicle is noted. There is no free fluid. IMPRESSION: 1. For age normal uterus and endometrium, normal ovaries. 2. No intrauterine gestation is identified despite a positive test. The gestation may be too early for sonographic detection. Ongoing follow with serial beta hCG and pelvic ultrasound is advised as clinically appropriate. REPORT SIGNATURE ON FILE Reported By: Jl Juarez MD <Electronically signed by Jl Juarez MD> 03/03/20 0906 Dictation Date/Time: 03/02/20 1506 Transcribed Date/Time: 03/02/20 1547 Clearance Diver: LEILA Name Value Range Interpretation Code Description Data [facility] rce(s) Supporting Document(s) ID Date Data Source [id number] 03/02/2020 11:51:00 AM EDT [facility] Collected By: Nurse Initials: AF Time Collected: 1109 Collected By: Nurse Initials: AF Time Collected: 1109 Name Value Range Interpretation Code Description Data Judith rce(s) Supporting Document(s) Color,Urine Colorl-Dk Y Normal (applies to non-numeric res ults) [facility] Clarity,Urine Clear Normal (applies to non-numeric re sults) [facility] Specific [place],Urine 1.005-1.030 Normal (applies to non- numeric results) [facility] pH,Urine 5.0-8.0 Normal (applies to non-numeric resul ts) [facility] Protein,Urine Negative [facility] Glucose,Urine Negative Normal (applies to non-numeric re sults) [facility] Ketones,Urine Negative Normal (applies to non-numeric re sults) [facility] Blood,Urine Negative [facility] l Bilirubin,Urine Negative Normal (applies to non-numeric results) [facility] Urobilinogen,Urine 0.2-1.0 Normal (applies to non-numer ic results) [facility] Leukocyte Esterase,Urine Negative Normal (applies to non -numeric results) [facility] Nitrite,Urine Negative Normal (applies to non-numeric re sults) [facility] RBC,Urine None Seen [facility] WBC,Urine None Seen Normal (applies to non-numeric resul ts) [facility] Casts,Urine None Seen Normal (applies to non-numeric resu lts) [facility] Squamous Cells,Urine None Seen [facility] Bacteria,Urine None Seen [facility] ital Mucus,Urine None Seen [facility] l ID Date Data Source [id number] 03/02/2020 11:51:00 AM EDT [facility] Collected By: Nurse Initials: AF Time Collected: 1109 Collected By: Nurse Initials: AF Time Collected: 1109 Name Value Range Interpretation Code Description Data Judith rce(s) Supporting Document(s) HCG,Ur Negative Normal (applies to non-numeric results) [facility] ID Date Data Source [id number] 12/06/2019 07:26:00 AM EDT [facility] spital REFLEX COVID 19 IF RP NEG This Respirat ory Panel DOES NOT test for the Novel 2018- Coronovirus (2019-nCoV) from [facility]. If patient is suspected of having the Novel 2018 Coronovirus notify the Health Department IMMEDIATELY. Pending ADENOVIRUS: Not detected CORONAVIRUS 229E: Not detected CORONAVIRUS HKU1: Not detected CORONAVIRUS NL63: Not detected CORONAVIRUS OC43: Not detected INFLUENZA A: Not detected INFLUENZA B: Not detected HUMAN METAPNEUMOVIRUS: Detected PARAINFLUENZA VIRUS 1: Not detected PARAINFLUENZA 2: Not detected PARAINFLUENZA 3: Not detected PARAINFLUENZA 4: Not detected RHINO/ENTEROVIRUS: Not detected RESPIRATORY SYNCYTIAL VIR: Not detected Methodology: Multiplexed PCR Reference Range: None detected BORDETELLA PARAPERTUSSIS: Not detected BORDETELLA PERTUSSIS: Not detected CHLAMYDIA PNEUMONIAE: Not detected MYCOPLASMA PNEUMONIAE: Not detected Name Value Range Interpretation Code Description Data [facility] Supporting Document(s) ID Date Data Source [id number] 12/05/2019 06:20:00 PM EDT [facility] REFLEX COVID 19 IF RP NEG This Respirat ory Panel DOES NOT test for the Novel 2018- Coronovirus (2019-nCoV) from [facility]. If patient is suspected of having the Novel 2018 Coronovirus notify the Health Department IMMEDIATELY. Methodology: Multiplexed PCR Reference Range: None detected Name Value Range Interpretation Code Description Data [facility](s) Supporting Document(s) ID Date Data Source [id number] 12/05/2019 12:19:00 PM EDT [facility] Method performed by Isothermal Nucle ic Acid Amplification. Reference value: Influenza A and B viral RNA not detected. This result does not rule out co-infections with other pathogens or identify any specific influenza A or B virus subtype/lineage. Negative results do not preclude infection with influenza virus and should not be the sole basis of a patient treatment decision.Not DetectedNot Detected Name Value Range Interpretation Code Description Data [facility](s) Supporting Document(s) ID Date Data Source [id number] 12/05/2019 12:15:00 PM [facility] Method performed by isothermal nucleic acid amplification. Reference value: Negative for Strep A nucleic acid. Confirmatory culture is NOT required for negative results unless clinical symptoms persist, in the event of an acute rheumatic fever outbreak, or if ordered by provider.Negative Name Value Range Interpretation Code Description Data [facility](s) Supporting Document(s) ID Date Data Source [id number] 11/30/2019 11:00:00 AM EDT [facility] Imaging Services Department Imaging Report [address] [place] [id number] %(RAD)RES..mtdd.print.filter("line") Name: CORONADOGREY,TRAVIS : 1995 Age/Sex: 24F Ordering Provider: JOHNNY Hassan Med Rec #: [id number] Reg Status: [facility] Room #: Date of Service: 11/28/19 Report Number: [id number] cc:PCP None; JOHNNY Hassan Send Report To: [id number] US/US Transvaginal OB Reason for exam: 6 weeks , pelvic cramping and passing clots. FINDINGS: LMP: 10/17/19 = EDC 07/23/20 EGA = 6 wks 0 days Earliest U/S Today = EDC EGA= wks days Heart Rate: No Regular Shaped Gestational Sac: No Adequate Amniotic Fluid: No Yolk Sac: No The endometrium is homogenous and there is no clear evidence of an intra or extrauterine gestation identified. The endometrium is within normal limits in size measuring 1.3 cm. These findings raise concern for a possible spontaneous . An ectopic is not completely excluded. Correlation with the patient's hCG levels is recommended. The uterus measures 7.4 x 3.7 x 5.0 cm. The right ovary measures 3.4 x 2.6 x 3.2 cm. Left ovary measures 2.2 x 3.1 x 2.6 cm. A corpus luteum is identifiedmeasuring 2.2 x 1.8 x 2.4 cm. No free fluid is identified. IMPRESSION: The endometrium is heterogeneous and there is no evidence of an intrauterine gestation identified. Ectopic cannot be completely excluded. Correlation with the patient's hCG level is recommended as well as follow up to ensure that the hCG level is declining is recommended. The right ovary demonstrates a cyst which is likely a corpus luteum. Examination is otherwise unremarkable. REPORT DICTATED BY MISAEL RUTH, REVIEWED AND SIGNED BY DR. PEREZ REPORT SIGNATURE ON FILE Reported By: Misael Perez MD <Electronically signed by Breanna Perez MD> 11/30/19 1506 Dictation Date/Time: 11/30/19 0918 Transcribed Date/Time: 11/30/19 1100 Clearance Diver: SANDRITA Name Value Range Interpretation Code Description Data Judith rce(s) Supporting Document(s) ID Date Data Source [id number] 11/28/2019 01:09:[address] [facility] Name Value Range Interpretation Code Description Data Judith rce(s) Supporting Document(s) Beta HCG,Quantitative 1 mIU/mL Normal (applies to non-nu meric results) [facility] Non-preganant:0-5 mIU/mL 0. 2- Week: 5-50 mIU/mL 1-2 Weeks: 50-500 mIU/mL 2-3 Weeks: 100-5,000 mIU/mL 3-4 Weeks: 500-10,000 mIU/mL 4-5 Weeks: 1,000-50,000 mIU/mL 5-6 Weeks: 10,000-100,000 mIU/mL 6-8 Weeks: 15,000-200,000 mIU/mL 2-3 Months: 10,000-100,000 mIU/mL ID Date Data Source [id number] 11/28/2019 12:00:[address] [facility] Name Value Range Interpretation Code Description Data [facility] rce(s) Supporting Document(s) White Blood Count 3.5-10.5 Normal (applies to non-numeri c results) [facility] Red Blood Count 3.90-5.00 Normal (applies to non-numeric results) [facility] Hemoglobin 12.0-15.5 Normal (applies to non-numeric resul ts) [facility] Hematocrit 34.9-44.5 Normal (applies to non-numeric resul ts) [facility] Mean Corpuscular Volume 81.2-95.1 Normal (applies to non- numeric results) [facility] Mean Corpuscular Hgb 25.6-32.2 Normal (applies to non-num gina results) [facility] Mean Corpuscular Hgb Conc 32.0-36.0 Normal (applies to no n-numeric results) [facility] Red Cell Distribution Width 11.9-15.5 Normal (appli es to non-numeric results) [facility] Platelet Count 307 x10 3/uL 150-450 Normal (applies to non-numeric results) [facility] Mean Platelet Volume 9.4-12.4 Normal (applies to non-num gina results) [facility] Neutrophils% (Auto) 31.0-71.0 Normal (applies to non-nume florencio results) [facility] Lymphocytes% (Auto) 20.0-55.0 Normal (applies to non-nume florencio results) [facility] Monocytes% (Auto) 4.0-12.0 Normal (applies to non-numeri c results) [facility] Eosinophils% (Auto) 1.0-8.0 Normal (applies to non-nume florencio results) [facility] Basophils% (Auto) 0.0-2.0 Normal (applies to non-numeri c results) [facility] Immature Granulocytes% (Auto) 0.0-2.0 Normal (sade lies to non-numeric results) [facility] Neutrophils# (Auto) 1.50-6.20 Normal (applies to non-nume florencio results) [facility] Lymphocytes# (Auto) 1.20-4.00 Normal (applies to non-nume florencio results) [facility] Monocytes# (Auto) 0.00-0.90 Normal (applies to non-numeri c results) [facility] Eosinophils# (Auto) 0.00-0.50 Normal (applies to non-nume florencio results) [facility] Basophils# (Auto) 0.00-0.20 Normal (applies to non-numeri c results) [facility] Immature Granulocytes# (Auto) 0.00-7.00 No rmal (applies to non-numeric results) [facility] ID Date Data Source [id number] 11/28/2019 12:48:00 PM EDT [facility] [place] Col[place] By: Nurse Initials: ab Time Collected: 1206 Name Value Range Interpretation Code Description [facility] Supporting Document(s) Color,Urine Colorl-Dk Y Normal (applies to non-numeric res ults) [facility] Clarity,Urine Clear Normal (applies to non-numeric re sults) [facility] Specific [place],Urine 1.005-1.030 Normal (applies to non- numeric results) [facility] pH,Urine 5.0-8.0 Normal (applies to non-numeric resul ts) [facility] Protein,Urine Negative Normal (applies to non-numeric re sults) [facility] Glucose,Urine Negative Normal (applies to non-numeric re sults) [facility] Ketones,Urine Negative Normal (applies to non-numeric re sults) [facility] Blood,Urine Negative Normal (applies to non-numeric resu lts) [facility] Bilirubin,Urine Negative Normal (applies to non-numeric results) [facility] Urobilinogen,Urine 0.2-1.0 Normal (applies to non-numer ic results) [facility] Leukocyte Esterase,Urine Negative Normal (applies to non -numeric results) [facility] Nitrite,Urine Negative Normal (applies to non-numeric re sults) [facility] ID Date Data Source [id number] 10/25/2019 03:51:00 PM EST [facility] Name Value Range Interpretation Code Description Data [facility] rce(s) Supporting Document(s) Thyrotropin [Units/volume] in Serum or Plasma 7.070 uIU/ML 0.358-3.74 0 [facility] <content>note:<nlbl:demographic_changed> </content>
<content></content> Thyroxine (T4) free [Mass/volume] in Serum or Plasma 1.17 ng/dL 0.76- 1.46 [facility] <content>note:<nlbl:demographic_changed> </content>
<content></content> Procedure Social History Code Duration Value Status Description Data Source(s ) Smoking 03/16/2020 07:06:00 PM EDT Denies Ever Smoked complete d Denies Ever Smoked [facility] Smoking 10/25/2019 12:00:00 AM EST Patient has never smoked co mpleted Patient has never smoked [facility] Vital Signs ID Date Data Source UNK Name Value Range Interpretation Code Description Data Source(s) Body mass index (BMI) [Ratio] 39.9 kg/m2 No rmal (applies to non-numeric results) 39.9 kg/m2 [facility] Body weight Measured 240 [lb_av] Normal (applies to n on-numeric results) 240 [lb_av] [facility] Body temperature 36.7 ramila Normal (applies to non-numeric results) 36.7 ramila [facility] Respiratory rate 14 min Normal (applies to non-numeric results) 14 min [facility] Deprecated Oxygen saturation in Capillary blood by Oximetry 99 % Normal (applies to non-numeric results) 99 % [facility] Body height 164.592 cm Normal (applies to non-numeric resu lts) 164.592 cm [facility] Heart rate 85 min Normal (applies to non-numeric resul ts) 85 min [facility] Diastolic blood pressure 88 mm[Hg] Normal (applies to non-numeric results) 88 mm[Hg] [facility] Systolic blood pressure 128 mm[Hg] Normal (applies t o non-numeric results) 128 mm[Hg] [facility] Body mass index (BMI) [Ratio] 47.9 kg/m2 47.9 k g/m2 [facility] Oxygen saturation in Arterial blood by Pulse oximetry 98 % 98 % [facility] Body weight 353.00 [lb_av] 353.00 [lb_av] [facility] Body height 72.00 [in_i] 72.00 [in_i] [facility] 6'0" Respiratory rate 14 /min 14 /min [facility] ( [facility] Body temperature 97.7 [degF] 97.7 [degF] [facility] Heart rate 83 /min 83 /min [facility] Diastolic blood pressure 87 mm[Hg] 87 mm[Hg] [facility] Systolic blood pressure 125 mm[Hg] 125 mm[Hg] [facility] ID Date Data Source [id number] 03/26/2020 01:07:00 PM EDT [facility] Name Value Range Interpretation Code Description Data Source(s) Weight Measurement Method 8 8 [facility] Weight 5040 5040 [facility] pital Temperature Source 7 7 [facility] Temperature 98 98 [facility] spital Respiratory Rate [address] [facility] Pulse Assessment Method 4 4 [facility] Weight Measurement Method 8 8 [facility] Weight 5040 5040 [facility] pital Temperature Source 7 7 [facility] Temperature 98.2 98.2 [facility] spital Respiratory Rate [address] [facility] Pulse Rate 57 57 [facility] 130/74 130/74 [facility] Weight Measurement Method 8 8 [facility] Weight 5040 5040 [facility] pital Temperature Source 7 7 [facility] Temperature 98.2 98.2 [facility] spital Respiratory Rate [address] [facility] Pulse Rate 69 69 [facility] pital Height 71 [facility] Pressure 183/108 183/108 [facility] ID Date Data Source [id number] 03/07/2020 11:32:00 AM EDT [facility] Name Value Range Interpretation Code Description Data Source(s) Weight Measurement Method 8 8 [facility] Weight 5600 5600 [facility] pital Temperature Source 7 7 [facility] Temperature 97.9 97.9 [facility] spital Respiratory Rate [address] [facility] Pulse Rate 107 107 [facility] Height 72 72 [facility] pital Blood Pressure 134/51 134/51 [facility] Weight Measurement Method 8 8 [facility] Weight 5600 5600 [facility] pital Temperature Source 7 7 [facility] Temperature 97.9 97.9 [facility] spital Respiratory Rate [address] [facility] Pulse Rate 107 107 [facility] pital Height 72 72 [facility] pital Blood Pressure 134/51 134/51 [facility] ID Date Data Source [id number] 03/04/2020 07:31:00 AM EDT [facility] spital Name Value Range Interpretation Code Description Data Source(s) Weight Measurement Method 8 8 [facility] Weight 5600 5600 [facility] pital Temperature Source 7 7 [facility] Temperature 97.9 97.9 [facility] spital Respiratory Effort 1 1 [facility] Respiratory Rate [address] [facility] Pulse Assessment Method 4 4 [facility] Pulse Rate 77 77 [facility] pital Height 71 71 [facility] pital Blood Pressure 118/85 118/85 [facility] Weight Measurement Method 8 8 [facility] Weight 5600 5600 [facility] pital Temperature Source 7 7 [facility] Temperature 96.5 96.5 [facility] spital Respiratory Effort 1 1 [facility] Respiratory Rate [address] [facility] Pulse Assessment Method 4 4 [facility] Pulse Rate 90 90 [facility] pital Height 71 71 [facility] pital Blood Pressure 122/82 122/82 [facility] ID Date Data Source [id number] 12/06/2019 07:26:00 AM EDT [facility] spital Name Value Range Interpretation Code Description Data Source(s) Weight Measurement Method 8 8 [facility] Weight 5520 5520 [facility] pital Temperature Source 7 7 [facility] Temperature 97.2 97.2 [facility] Respiratory Effort 1 1 [facility] Respiratory Rate [address] [facility] Pulse Assessment Method 4 4 [facility] Pulse Rate 75 75 [facility] pital Height 71 71 [facility] pital Blood Pressure 142/104 142/104 [facility] Weight Measurement Method 8 8 [facility] Weight 5520 5520 [facility] pital Temperature Source 7 7 [facility] Temperature 97.3 97.3 [facility] Respiratory Effort 1 1 [facility] Respiratory Rate [address] [facility] Pulse Assessment Method 4 4 [facility] Pulse Rate 75 75 [facility] pital Height 71 71 [facility] pital Blood Pressure 142/104 142/104 [facility] Weight Measurement Method 8 8 [facility] Weight 5520 5520 [facility] pital Temperature Source 7 7 [facility] Temperature 97.3 97.3 [facility] spital Respiratory Effort 1 1 [facility] Respiratory Rate [address] [facility] Pulse Assessment Method 4 4 [facility] Pulse Rate 75 75 [facility] pital Height 71 71 [facility] pital Blood Pressure 142/104 142/104 [facility] ID Date Data Source [id number] 11/30/2019 03:06:00 PM EDT [facility] Name Value Range Interpretation Code Description Data Source(s) Weight Measurement Method 8 8 [facility] Weight 5440 5440 [facility] pital Temperature Source 7 7 [facility] Temperature 98.0 98.0 [place] Respiratory Effort 1 1 [facility] Respiratory Rate [address] [facility] Pulse Assessment Method 4 4 [facility] Pulse Rate 87 87 [facility] pital Height 71 71 [facility] pital Blood Pressure 143/99 143/99 [facility] Weight Measurement Method 8 8 [facility] Weight 5440 5440 [facility] pital Temperature Source 7 7 [facility] Temperature 98.0 98.0 [place] Respiratory Effort 1 1 [facility] Respiratory Rate [address] [facility] Pulse Assessment Method 4 4 [facility] Pulse Rate 87 87 [facility] pital Height 71 71 [facility] pital Blood Pressure 143/99 143/99 [facility] Weight Measurement Method 8 8 [facility] Weight 5440 5440 [facility] pital Temperature Source 7 7 [facility] Temperature 98.0 98.0 [place] [facility] Respiratory Effort 1 1 [facility] Respiratory Rate [address] [facility] Pulse Assessment Method 4 4 [facility] Pulse Rate 87 87 [facility] pital Height 71 71 [facility] pital Blood Pressure 143/99 143/99 [facility] Weight Measurement Method 8 8 [facility] Weight 5440 5440 [facility] pital Temperature Source 7 7 [facility] Temperature 98.0 98.0 [facility] Respiratory Effort 1 1 [facility] Respiratory Rate [address] [facility] Pulse Assessment Method 4 4 [facility] Pulse Rate 87 87 [facility] pital Height 71 71 [facility] pital Blood Pressure 143/99 143/99 [facility] Weight Measurement Method 8 8 [facility] Weight 5440 5440 [facility] pital Temperature Source 7 7 [facility] Temperature 98.0 98.0 [place] [facility] Respiratory Effort 1 1 [facility] Respiratory Rate [address] [facility] Pulse Assessment Method 4 4 [facility] Pulse Rate 87 87 [facility] pital Height 71 71 [facility] pital Blood Pressure 143/99 143/99 [facility] ID Date Data Source [id number] 10/12/2019 07:44:00 AM EST [place] [facility] Name Value Range Interpretation Code Description Data Source(s) Weight Measurement Method 8 8 [facility] Weight 5520 5520 [facility] pital Temperature Source 7 7 [facility] Temperature 96.5 96.5 [facility] spital Respiratory Effort 1 1 [facility] Respiratory Rate [address] [facility] Pulse Assessment Method 4 4 [facility] Pulse Rate 81 81 [facility] pital Height 72 72 [facility] pital Blood Pressure 122/84 122/84 [facility] Weight Measurement Method 8 8 [facility] Weight 5520 5520 [facility] pital Temperature Source 7 7 [facility] Temperature 96.5 96.5 [facility] spital Respiratory Effort 1 1 [facility] Respiratory Rate [address] [facility] Pulse Assessment Method 4 4 [facility] Pulse Rate 81 81 [facility] pital Height 72 72 [facility] 122/84 122/84 [facility] Weight Measurement Method 8 8 [facility] Weight 5520 5520 [facility] pital Temperature Source 7 7 [facility] Temperature 96.5 96.5 [facility] spital Respiratory Effort 1 1 [facility] Respiratory Rate [address] [facility] Pulse Assessment Method 4 4 [facility] Pulse Rate 81 81 [facility] pital Height 72 72 [facility] pital Blood Pressure 122/84 122/84 [facility] Patient Treatment Plan of Care Planned Activity Planned Date Details Description Data Source (s) Misoprostol 0.2 MG Oral Tablet 08/11/2019 12:00:00 AM EST [facility] pantoprazole 40 MG Delayed Release Oral Tablet 08/11/2019 12:00:00 AM EST [facility] Sucralfate 1000 MG Oral Tablet 08/11/2019 12:00:00 AM EST [facility] Multiple Vitamins-Iron (MULTIVITAMIN WITH IRON) TABS 019 12:00:00 AM EDT [facility]
--- NOTE | 2020-10-27 22:16 | REPVR ---
PROCEDURE INFORMATION: Exam: CT Head Without Contrast Exam date and time: 10/27/2020 10:07 PM Age: 25 years old Clinical indication: Pain; Headache; Additional info: Worst headache ever no history TECHNIQUE: Imaging protocol: Computed tomography of the head without contrast. Radiation optimization: All CT scans at this facility use at least one of these dose optimization techniques: automated exposure control; mA and/or kV adjustment per patient size (includes targeted exams where dose is matched to clinical indication); or iterative reconstruction. COMPARISON: No relevant prior studies available. FINDINGS: Brain: Normal. No hemorrhage. Unremarkable white matter. No mass effect. Cerebral ventricles: No ventriculomegaly. Bones/joints: Unremarkable. No acute fracture. Paranasal sinuses: Visualized sinuses are unremarkable. No fluid levels. Mastoid air cells: Visualized mastoid air cells are well aerated. Soft tissues: Unremarkable. IMPRESSION: No acute intracranial abnormality. Electronically signed by: Silverio Larkin On 10/27/2020 22:16:25 PM
[2020-10-27] MEDS ORDERED: diphenhydrAMINE 50MG/ML VIAL (J1200) IV STA (23:20)
[2020-10-27] MEDS ORDERED: KETOROLAC 30 MG/ML 1ML VIAL IV ONE (23:30)
[2020-10-27] MEDS ORDERED: METOCLOPRAMIDE INJ 10MG/2ML VIAL (J2765 PER 1) IV ONE (23:30)
[2020-10-27] MEDS ORDERED: NS 1,000 ML IV ONE (23:30)
[2020-10-28 00:26] VITALS: BP 136/83
--- OUTSIDE RECORDS SUMMARY | 2020-10-28 00:30 | CCD ---
Author Author [facility] Organization [facility] Address Unknown Phone Unavailable Care Team Providers Care Cyber Systems Administrator Name Role Phone ScnishaoMaxby PA Unavailable Unavailable Scordo, M Prtety PA Unavailable Unavailable Scordo, M Pretty PA [...] Unavailable Fredis, F Juan PA Unavailable Unavailable [place], F Juan PA Unavailable Unavailable Fredis, F Juan PA Unavailable Unavailable Fredis, F Juan PA Unavailable Unavailable Fredis, F Juan PA Unavailable Unavailable [place], F Juan PA Unavailable Unavailable Fredis, F Juan PA Unavailable Unavailable [place], F Juan PA Unavailable Unavailable [place], F Juan PA Unavailable Unavailable ALON, RALPH PA Unavailable Unavailable ALON, RALPH PA Unavailable Unavailable ALON, RALPH PA Unavailable Unavailable ALON, RALPH PA Unavailable Unavailable ALON, RALPH PA Unavailable Unavailable ALON, RALPH PA Unavailable Unavailable ALON, RALPH PA Unavailable Unavailable NEO, C ONIEL VASQUEZ Unavailable [...] is protected by Article 27-F of the [facility] Public Health law. If you continue you may have access to information: Regarding HIV / AIDS; Provided by facilities licensed or operated by the [facility] Office of Mental Health; or Provided by the [facility] Office for People With Developmental Disabilities. If such information is present, then the following [facility] mandated warning applies: This information has been [...] law may result in a fine or correction sentence or both. A general authorization for the release of medical or other information is NOT sufficient authorization for further disc losure. Allergies and Adverse Reactions Type Description Substance Reaction Status Data Source(s ) Drug allergy Drug allergy cephalexin (From Keflex) [facility] Drug allergy Drug allergy No Known Allergies [facility] Family History Family Member Name Family Member Gender Family Member Status Date o f Status Description Data Source(s) Unknown Unknown Problem [facility] Encounters Encounter Providers Location Date Indications Data Source(s ) Emergency Attender: JULIA LOFTONConsultant: Pretty Rodgers 04/02/2020 08:56:00 PM EDT - 04/03/2020 01:23:00 AM EDT [facility] Patient discharged. Outpatient CPSCAORT-LABEJN 03/21/2020 09:38:00 AM EDT [facility] Emergency Attender: Vimal Platt PAAttender: Vimal TURNER ED-ED 03/20/2020 09:26:00 PM EDT - 03/21/2020 01:01:00 AM EDT RT SIDE PAIN [facility] RT SIDE PAIN Patient discharged. Emergency Attender: ER PHYSICIAN 03/16/2020 07:35:59 PM E DT Lab [facility] Emergency Attender: JANES Concepcionender: ER PHYSICIAN 03/16/2020 06:23:00 PM EDT - 03/16/2020 09:56:00 PM EDT OVARIAN CYST PAIN [facility] OVARIAN CYST PAIN Patient discharged. Emergency Attender: ER PHYSICIAN 03/16/2020 06:23:00 PM E DT [facility] Emergency Attender: Ralph Martinez tender: RALPH CHI PAReferrer: ONIEL LARSON MD ED-ED 03/06/2020 07:57:00 PM EDT - 03/06/2020 10:28:00 PM EDT PAIN FROM CYST [facility] PAIN FROM CYST Patient discharged. Emergency Attender: Vimal Salterender: Vimal TURNER ED-ED 03/02/2020 10:09:00 AM EDT - 03/02/2020 02:13:00 PM EDT PREGRANT/ CRAMPING,SOME BLEEDIN [facility] PREGRANT/ CRAMPING,SOME BLEEDIN Patient discharged. Outpatient Attender: MISAEL TURNER CPSCAORT-LABEJN 12/04 02:44:00 PM EDT B34.9 [facility] B34.9 Emergency Attender: MISAEL TURNER ED-ED 12/04 11:27:00 AM EDT - 12/05/2019 12:38:00 PM EDT SORE THROAT,COUGH,EAR PAIN [facility] SORE THROAT,COUGH,EAR PAIN Patient discharged. Emergency Attender: Juan TURNER ED-ED 11:27:00 AM EDT - 11/28/2019 01:55:00 PM EDT PASSED CLOTS [facility] PASSED CLOTS Patient discharged. Outpatient Attender: ANITA CONNOR 10/29/2019 03:00:00 PM [facility] Outpatient Attender: Pretty TURNER Main Office 10/25/2019 02:15:00 PM EST [facility] Emergency Attender: JUAN JOSÉ DAY MD ED-ED 0 10/11/2019 02:59:00 PM EST - 10/11/2019 03:33:00 PM EST L CALF LAC [facility] L CALF LAC Patient discharged. Outpatient Attender: MOISES SILVA 10/11/2019 09:04:00 AM [facility] Outpatient Attender: MOISES SILVA 10/04/2019 09:03:00 AM [facility] Outpatient Attender: ANITA CONNOR 10/01/2019 12:14:00 PM [facility] Outpatient Attender: TERESA DAMION 09/28/2019 03:00:00 PM [facility] Medications Medication Brand Name Start Date Product [...] by mouth 4 (four) times a day [facility] Sucralfate 1000 MG Oral Tablet sucralfate (CARAFATE) 1 g tablet sucralfate (CARAFATE) 1 g tablet 08/11/2019 12:00:00 AM EST 1 g Oral active Take 1 tablet (1 g total) by mouth 4 (four) times a day [facility] pantoprazole 40 MG Delayed Release Oral Tablet pantoprazole (PROTONIX) 40 MG tablet pantoprazole (PROTONIX) 40 MG tablet 08/11/2019 12:00:00 AM EST 40 mg Oral active Take 1 tablet (40 mg total) by mouth 2 (two) times a day [facility] Multiple Vitamins-Iron (MULTIVITAMIN WITH IRON) TABS 0904-05 31-60 06/26/2019 12:00:00 AM EDT 2 {tbl} Oral active Take 2 tablets by mouth daily [facility] Insurance Providers Payer name Policy type / Coverage type Policy ID Covered green party ID Covered green party's relationship to henderson Policy [place] Plan Information [facility] [id number] SP [id number] [facility] [id number] 18 [id number] [facility] [id number] S [id number] HEA [id number] SP [id number] [facility] [id number] S [id number] [facility] [id number] S [id number] [facility] [id number] Spo [id number] [facility] [id number] [facility] [id number] SP [id number] [facility] O [id number] S [id number] [facility] PLAN U [id number] Se lf [id number] [facility] U [id number] Se lf [id number] [employer] [id number] SP [id number] [facility] Commercial [id number] Self [id number] [facility] Commercial [id number] Self [id number] [facility] Commercial [id number] Self [id number] [facility] Commercial [id number] Self 00 [id number] Problems, Conditions, and Diagnoses Code Display Name Description Problem Type Effective Dates Data Source(s) E039 Hypothyroidism, unspecified Hypothyroidism, unspecifie d Diagnosis 04/02/2020 08:56:00 PM EDT [facility] K2970 Gastritis, unspecified, without bleeding Gastritis, unspecified, without bleeding Diagnosis 04/02/2020 08:56:00 PM EDT [facility] R109 Unspecified abdominal pain Unspecified abdominal pain Diagnosis 04/02/2020 08:56:00 PM EDT [facility] F33.9 Major depressive disorder, recurrent, un specified MAJOR DEPRESSIVE DISORDER, RECURRENT, UNSPECIFIED Diagnosis 10/04/2019 09:03:00 AM [facility] F32.9 Major depressive disorder, single episod e, unspecified MAJOR DEPRESSIVE DISORDER, SINGLE EPISODE, UNSPECIFIED Diagnosis 09/28/2019 03:00:00 PM [facility] Surgeries/Procedures Procedure Description Date Indications Data Source(s) CT ABDOEN & PELVIS W/CONTRAST MATERIAL 03/20/2020 12:0 0:00 AM [facility] Low osmolar contrast material, 300-399 mg/ml iodine concentr ation, per ml 03/20/2020 12:00:00 AM [facility] CULTURE BACTERIAL BLOOD AEROBIC W/ID ISOLATES 03/20/20 20 12:00:00 AM [facility] COLLECTION VENOUS BLOOD VENIPUNCTURE 03/20/2020 12:00: 00 AM [facility] BLOOD COUNT COMPLETE AUTO&AUTO DIFRNTL WBC COUNT 03/20 12:00:00 AM [facility] AMYLASE 03/20/2020 12:00:00 AM [facility] LACTATE 03/20/2020 12:00:00 AM [facility] LIPASE 03/20/2020 12:00:00 AM [facility] COMPREHENSIVE METABOLIC PANEL 03/20/2020 12:00:00 AM [facility] Injection, ondansetron hydrochloride, per 1 mg 12:00:00 AM [facility] Injection, morphine sulfate, up to 10 mg 03/20/2020 12 :00:00 AM [facility] US UTERUS LIMITED 1/> FETUSES 03/02/2020 12:0 0:00 AM [facility] URNLS DIP STICK/TABLET REAGENT AUTO MICROSCOPY 12:00:00 AM [facility] GONADOTROPIN CHORIONIC QUANTITATIVE 03/02/2020 12:00:0 0 AM [facility] URINE TEST VISUAL COLOR CMPRSN METHS 12:00:00 AM [facility] US PREG UTERUS REAL TIME W/IMAGE DCMTN TRANSVAG 2019 12:00:00 AM [facility] URNLS DIP STICK/TABLET RGNT AUTO W/O MICROSCOPY 2019 12:00:00 AM EDT [facility] Non-covered item or service 11/28/2019 12:00:00 AM [facility] EMERGENCY DEPARTMENT VISIT HIGH/URGENT SEVERITY 2019 12:00:00 AM [facility] Results ID Date Data Source [id number] 04/02/2020 08:56:00 PM EDT [facility] 1 OrderSheet [facility] Emergency Department [address] [place] [address] Phone #: ext- [phone] 04/02/2020 20:43 Patient: [...] Nausea w Vomiting, RUQ Pain 2 OrderSheet [facility] Emergency Department [address] [place] [address] Phone #: ext- [phone] 04/02/2020 20:43 Patient: TRAVIS MCCLELLAN Sex: F [...] rce(s) Supporting Document(s) ID Date Data Source [id number] 04/02/2020 08:56:00 PM EDT [facility] 1 Medication Reconciliation Report [facility] Emergency Department [address] [place] [address] Phone #: ynm- [phone] 04/02/2020 20:43 Patient: TRAVIS MCCLELLAN Sex: F [...] days -- Dispense 28 tablet. Refills: 0.Substitution permitted.[employer] [address] [place] [address]. .Protonix 40 mg tablet,delayed release Take 1 tablet once a day for 30 days -- Dispense 30 tablet.Refills: 1. Substitution permitted.[employer] [address] [place] [address] [phone]. Phone: [phone] Medication Reconciliation Report [facility] Emergency Department [address] [place] [address] Phone #: ext- [phone] 04/02/2020 20:43 Patient: TRAVIS MCCLELLAN Sex: F : 1995 Age: [id number] . -- Julia Lofton M.D. Name Value Range Interpretation Code Description Data Judith rce(s) Supporting Document(s) ID Date Data Source [id number] 04/02/2020 08:56:00 PM EDT [facility] 1 Medication Administration Record [facility] Emergency Department [address] [place] [address] Phone #: ext- [phone] 04/02/2020 20:43 Patient: [...] 50 mL bagStop Site: #1 right AC23:00 04/02/2020[facility].Start NS [IV] NS IV 1000 mL Bolus: : Bolus [id number] 04/02/2020 Dose: IV Fluids mL (X1)Zac Gerardo R.N. Bolus: 1000 mL wide open---- Dispensed: [...] rce(s) Supporting Document(s) ID Date Data Source [id number] 04/02/2020 08:56:00 PM EDT [facility] 1 General Instructions [facility] Emergency Department [address] [place] [address] Phone #: ext- [phone] 04/02/2020 20:43 Patient: [...] days -- Dispense 28 tablet. Refills: 0.Substitution permitted.[employer] # [address] [place] [address] [phone]. .Protonix 40 mg tablet,delayed release Take 1 tablet once a day for 30 days -- Dispense 30 tablet.Refills: 1. Substitution permitted.[employer] [address] [place] [address] [phone]. .Follow-up:Return to the emergency department as needed. Follow up with a surgeon tomorrow even if well. Call rossy appointment. Reason for referral: evaluation and treatment. Summary of care provided to patient viapaper.Understanding of the discharge instructions verbalized by patient. Expected course of illness, discharge 2 General Instructions [facility] Emergency Department [address] [place] [address] Phone #: ext- [phone] 04/02/2020 20:43 Patient: TRAVIS MCCLELLAN Sex: F [...] both problems can include: 3 General Instructions [facility] Emergency Department [address] [place] [address] Phone #: ext- [phone] 04/02/2020 20:43 Patient: [...] any of these occur: 4 General Instructions [facility] Emergency Department [address] [place] [address] Phone #: ext- [phone] 04/02/2020 20:43 Patient: [...] of blood present in vomit or stool [id number] [employer]. [address] [place], [place] [id number]. All rights reserved. This information is not intended as asubstitute for professional medical care. Always follow your healthcare professional's instructions. You have been given the following additional information: Gastritis or Ulcer (No Antibiotic Treatment)(Electronically signed by Julia Lofton M.D. 04/03/2020 01:39) Name Value Range Interpretation Code Description Data Judith rce(s) Supporting Document(s) ID Date Data Source [id number] 04/02/2020 08:56:00 PM EDT [facility] 1 Clinical Report - Nurses [facility] Emergency Department [address] [place] [address] Phone #: ext- [phone] 04/02/2020 20:43 Patient: TRAVIS MCCLELLAN Sex: F : 1995 Age: 25yTRIAGEArrived by private vehicle.Acuity: LEVEL 3.Chief Complaint: ABDOMINAL PAIN.Alert. No acute distress.Worsened while eating. Symptoms are intermittent and still present (3 days ago). She has had nausea,vomiting, diarrhea and abdominal pain. 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 (12noon).SEPSIS SCREEN: SIRS Screen negative. Sepsis [...] R.N.ADDITIONAL SURGERIES:. 2 Clinical Report - Nurses [facility] Emergency Department [address] [place] [address] Phone #: ext- [phone] 04/02/2020 20:43 Patient: [...] Gerardo R.N. 3 Clinical Report - Nurses [facility] Emergency Department [address] [place] [address] Phone #: ext- [phone] 04/02/2020 20:43 [id number] Sex: F : 1995 Age: 25yNURSING PROGRESS [...] swelling. IV 4 Clinical Report - Nurses [facility] Emergency Department [address] [place] [address] Phone #: ext- [phone] 04/02/2020 20:43 Patient: [...] Patient verbalized understanding. Written instructions provided in Italian. The patient was discharged by the physician. She was discharged home. She left ambulatory and via private vehicle. Driving ([facility] 5 Clinical Report - Nurses [facility] Emergency Department [address] [place] [address] Phone #: e xt [phone] 04/02/2020 20:43 [...] rce(s) Supporting Document(s) ID Date Data Source [id number] 04/02/2020 08:56:00 PM EDT [facility] 1 Clinical Report - Physicians/Mid Levels [facility] Emergency Department [address] [place] [address] Phone #: ext- [phone] 04/02/2020 20:43 Patient: TRAVIS MCCLELLAN Sex: F [...] diarrhea. (pt is s/p gastric bypass at [facility] then perforated ulcer on ; was dxed w gallstones in 11-01 in [facility]). No recent travel. Similar symptoms previously. Patient [...] Thyroidectomy. 2 Clinical Report - Physicians/Mid Levels [facility] Emergency Department [address] [place] [address] Phone #: ext- [phone] 04/02/2020 20:43 Patient: [...] CT ABD PELVIS W/ IV ONLY INSTITUTION: [facility] ORDERING PHYSICIAN: Julia Lofton 3 Clinical Report - Physicians/Mid Levels [facility] Emergency Department [address] [place] [address] Phone #: ext- [phone] 04/02/2020 20:43 Patient: [...] aneurysm. 4 Clinical Report - Physicians/Mid Levels [facility] Emergency Department [address] [place] [address] Phone #: ext- [phone] 04/02/2020 20:43 Patient: TRAVIS MCCLELLAN Sex: Suzie : 1995 Age: 25yBONES: No aggressive appearing osseous lesion. No acute osseous pathology evident.ImpressionNo acute abnormality identified.Post gastric bypass.Electronically signed on Apr 02, 2020 11:57:11 PM EDT by:Kaushal Givens, [place] [employer]. Study type: abdomen and pelvis. Abdominal CT performedwith IV contrast. The study was interpreted by the radiologist.Abdominal Sonogram: (REPORT SUBMISSION DATE: Apr 02, 2020 11:27:09 PM EDTNAME: TRAVIS MCCLELLAN STUDY INITIATED:Apr 02, 2020 10:52:32 PM EDTMRN: [id number] STUDY RECEIVED:Apr 02, 2020 11:25:10 PM EDTGENDER: F MODALITY TYPE:US\\SRDOB: [birth year] DESCRIPTION: US GALLBLADDERINSTITUTION: [facility] ORDERING PHYSICIAN: ROLLY DUMONTACCESSION #: [id number] HISTORY:EXAM: US Abdomen, Right Upper Quadrant.CLINICAL HISTORY: [...] limits. 5 Clinical Report - Physicians/Mid Levels [facility] Emergency Department [address] [place] [address] Phone #: ext- [phone] 04/02/2020 20:43 Patient: TRAVIS MCCLELLAN Sex: F : 1995 Age: 25yRIGHT KIDNEY: Unremarkable. Normal renal contours. No renal mass or calculus. No hydronephrosis.ImpressionUnremarkable gallbladder.Electronically signed on Apr 02, 2020 11:27:09 PM EDT by:Kaushal Givens, [place] [employer]). Study included the gallbladder. The study was interpreted bythe radiologist.Laboratory Tests: Laboratory tests have been ordered, with results reviewed and considered in themedical decision making process.US Gall Bladder: (TANA: 04/02/2020 22:32) ( MsgRcvd 04/02/2020 23:27) Final resultsUS GALLBLADDERReason(s): History of GallstonesTRANSPORTATION: WC IV? O2? Oxygen?(No) Room: ED Exam GALLBLADDER [facility] [address] [place] [address] ---------NAME--------- NUMBER SEX AGE ADMIT DISC. XRAY# F/C TYPE GREYCORONADO TRAVIS [id number] F 25 04/02/20 SB2 E/R DATE OF : 1995 M/R# [id number] #: [id number] TR-03 LOCATION: EMERGENCY DEPT TRANSCRIBED: 04/02/20 23:27 IF US GALLBLADDER [id number] COMPLETED:04/02/20 23:27 radha [id number] Reason(s): History of Gallstones Nausea w Vomiting [...] portion 6 Clinical Report - Physicians/Mid Levels [facility] Emergency Department [address] [place] [address] Phone #: ext- [phone] 04/02/2020 20:43 Patient: [...] CT ABD //T// PELVIS W/ [place] [address] ---------NAME--------- NUMBER SEX AGE ADMIT DISC. XRAY# F/C TYPE VY ROBLES [id number] F 25 04/02/201994377498 SB2 E/R DATE OF : 1995 M/R# [id number] #: [id number] TR-03 LOCATION: EMERGENCY DEPT TRANSCRIBED: 04/02/20 23:[address] ABD //T// PELVIS W/ IV ONLY [id number] COMPLETED:04/02/20 23:40 [facility] [id number] Reason(s): RUQ pain, Hx gallstones, s/p gastric [...] Unremarkable. 7 Clinical Report - Physicians/Mid Levels [facility] Emergency Department [address] [place] [address] Phone #: ext- [phone] 04/02/2020 20:43 Patient: [...] NEGATIVE (NORMAL: NEGAT { KIT LOT # [id number] ){ KIT EXP 06.24.21 ){ PROCEDURAL CONTROL [...] 14.5) 8 Clinical Report - Physicians/Mid Levels [facility] Emergency Department [address] [place] [address] Phone #: ext- [phone] 04/02/2020 20:43 Patient: TRAVIS MCCLELLAN Sex: F [...] Male GFR Interprentation 20-49 yrs >60 mL/min Aamxrc91-80 yrs >56 mL/min Normal 60-69 yrs >49 mL/min Normal 70-79yrs>42 mL/min Normal 80 and above >35 mL/min Normal Female GFRInterpretation 20-39 yrs >60 mL/min Normal 40-49 yrs >58 mL/minNormal 50-59 yrs >51 mL/min Normal 60-69 yrs >45 mL/min Nikwim21-41 yrs >39 mL/min Normal 80 and above >32 mL/min NormalLipase: (TANA: 04/02/2020 21:26) ( MsgRcvd 04/02/2020 21:59) Final results Test Result Flag Units (Reference) LIPASE 21 U/L (13 - 60)Lactic Acid: (TANA: 04/02/2020 21:26) ( MsgRcvd 04/02/2020 21:44) Final results Test Result Flag Units (Reference) 9 Clinical Report - Physicians/Mid Levels [facility] Emergency Department [address] [place] [address] Phone #: ext- [phone] 04/02/2020 20:43 Patient: TRAVIS MCCLELLAN [facility]#: [id number] Sex: F : 1995 Age: 25y LACTIC [...] lightheadedness. 10 Clinical Report - Physicians/Mid Levels [facility] Emergency Department [address] [place] [address] Phone #: ext- [phone] 04/02/2020 20:43 Patient: TRAVIS MCCLELLAN Sex: F : 1995 Age: 25y Your Current Medications: Your current home medications have been reviewed. CONTINUE TAKING THE FOLLOWING MEDICATIONS: Synthroid 224mcg daily*. Prescription Medications: Carafate 1 gram tablet Take 1 tablet four times a day for 7 days -- Dispense 28 tablet. Refills: 0. Substitution permitted. [employer] # [address] [place] [address] [phone]. . Protonix 40 mg tablet,delayed release Take 1 tablet once a day for 30 days -- Dispense 30 tablet. Refills: 1. Substitution permitted. [employer] # [address] [place] [address] [phone]. . Follow-up: Return to the emergency department [...] rce(s) Supporting Document(s) ID Date Data Source [id number] 04/02/2020 11:57:00 PM EDT [facility] [address] [place] [address] ---------NAME--------- NUMBER SEX AGE ADMIT DISC. XRAY# F/C TYPE GREYCORONADO TRAVIS [id number] F 25 04/02/20 SB2 E/R DATE OF : 1995 M/R# [id number] #: [id number] TR-03 LOCATION: EMERGENCY DEPT TRANSCRIBED: 04/02/20 23:[address] ABD //T// PELVIS W/ IV ONLY [id number] COMPLETED:04/02/20 23:40 [facility] [address] Reason(s): RUQ pain, Hx gallstones, s/p gastric [...] rce(s) Supporting Document(s) ID Date Data Source [id number] 04/02/2020 11:27:00 [place] [address] ---------NAME--------- NUMBER SEX AGE ADMIT DISC. XRAY# F/C TYPE GREYCORONADO TRAVIS [id number] F 25 04/02/20 SB2 E/R DATE OF : 1995 M/R# [id number] #: [id number] TR-03 LOCATION: EMERGENCY DEPT TRANSCRIBED: 04/02/20 23:27 IF US GALLBLADDER [id number] COMPLETED:04/02/20 23:27 radha [id number] Reason(s): History of Gallstones Nausea w Vomiting [...] Name Value Range Interpretation Code Description Data [facility](s) Supporting Document(s) ID Date Data Source [id number] 04/02/2020 09:26:00 PM EDT [facility] (Liz Zhao [...] [facility] ID Date Data Source [id number] 04/02/2020 09:26:00 PM EDT [facility] Name Value Range Interpretation Code Description Data Judith rce(s) Supporting Document(s) Lipoprotein lipase [Enzymatic activity/volume] in Serum or Plasm a 21 U/L 13-60 [facility] ID Date Data Source [id number] 04/02/2020 09:26:00 PM EDT [facility] Name Value Range Interpretation Code Description Data Judith rce(s) Supporting Document(s) HCG Serum Qual Laboratory test result [facility] HCG Serum QL [facility] test result [facility] { KIT LOT # [id number] ) { KIT EXP DATE 06.24.21 ) { PROCEDURAL CONTROL VALID ) ID Date Data Source [id number] 04/02/2020 09:26:00 PM EDT [facility] (Liz Zhao [...] 10^3/uL 150-450 [facility] ([facility] [place] 6.8 % 3.0-8.0 [facility] (Liz sanford M.D., [...] 10^3/uL 0.60-3.40 [facility] ([facility] #[place] 0.42 10^3/uL 0.00-0.90 [facility] (Liz Zhao M.D., [...] Zhao [facility] ID Date Data Source [id number] 04/02/2020 09:26:00 PM EDT [facility] Name Value Range Interpretation Code Description Data Judith rce(s) Supporting Document(s) Lactate [Mass/volume] in Serum or Plasma 3.0 mmol/L 0.2-2.2 [facility] ([facility] ID Date Data Source [id number] 04/02/2020 09:59:00 PM EDT [facility] Name Value Range Interpretation Code Description Data Judith rce(s) Supporting Document(s) COMPREHENSIVE METABOLIC PANEL [facility] COMPREHENSIVE METABOLIC PANEL Sodium [Moles/volume] in Serum or Plasma 140 mEq/L 134 - 153 [facility] Potassium [Moles/volume] in Serum or Plasma 4.2 mEq/L 3.6 - 5.0 [facility] [facility] Chloride [Moles/volume] in Serum or Plasma 108 mEq/L 98 - 107 [facility] Carbon dioxide, total [Moles/volume] in Serum or Plasma 22 MEQ/L 22 - 30 [facility] Glucose [Mass/volume] in Serum or Plasma 137 MG/DL 65 - 110 [facility] BUN 7 MG/DL 7 - 21 [facility] Creatinine [Mass/volume] in Serum or Plasma 0.8 MG/DL 0.7 - 1.5 [facility] BUN/CREAT 9 8 - 27 [facility] Protein [Mass/volume] in Serum or Plasma 7.6 G/DL 6.3 - 8.2 [facility] Albumin [Mass/volume] in Serum or Plasma 4.0 G/DL 3.9 - 5.0 [facility] Globulin [Mass/volume] in Serum by calculation 3.6 GM/DL 2.4 - 3.2 [facility] A/G RATIO 1.1 0.8 - 2.0 [facility] Calcium [Mass/volume] in Serum or Plasma 8.3 MG/DL 8.4 - 10.2 L [facility] Bilirubin.total [Mass/volume] in Serum or Plasma <0.7 MG/DL 0.2 - 1.3 [facility] Alkaline phosphatase [Enzymatic activity/volume] in Serum or Plasma 92 U/L 38 - 126 [facility] Aspartate aminotransferase [Enzymatic activity/volume] in Serum or Plasma 15 U/L 5 - 40 [facility] Alanine aminotransferase [Enzymatic activity/volume] in Seru m or Plasma 11 U/L 7 - 56 [facility] Anion gap 3 in Serum or Plasma 10.0 mmol/L 8.0 - 16.0 [facility] AGE 25 yrs [facility] NON-AA GFR >60 mL/min [facility] AFR AMER GFR >60 mL/min [facility] Male GFR In terprentation 20-49 [...] >32 mL/min Normal ID Date Data Source [id number] 04/02/2020 09:59:00 PM T [facility] Name Value Range Interpretation Code Description Data Judith rce(s) Supporting Document(s) Lipase [Enzymatic activity/volume] in Serum or Plasma 21 U/L 13 - 60 [facility] ID Date Data Source [id number] 04/02/2020 09:52:00 PM T [facility] Name Value Range Interpretation Code Description Data Judith rce(s) Supporting Document(s) HCG SERUM QUAL NEGATIVE NORMAL: NEGATIVE [facility] HCG SERUM QL REENTER NEGATIVE NORMAL: NEGATIVE [facility] { KIT LOT # [id number] ){ KIT EXP DATE 06.24.21 ){ PROCEDURAL CONTROL VALID ) ID Date Data Source [id number] 04/02/2020 09:52:00 PM [facility] Name Value Range Interpretation Code Description Data Judith rce(s) Supporting Document(s) CBC W/AUTOMATED DIFF [facility] COMPLETE BLOOD COUNT Leukocytes [#/volume] in Blood by Automated count 6.1 10^3/uL 4.2 - 1 1.0 [facility] Erythrocytes [#/volume] in Blood by Automated count 4.14 10^6/uL 4. 20 - 5.40 L [facility] Hemoglobin [Mass/volume] in Blood 11.7 g/dL 12.0 - 16.0 L [facility] Hematocrit [Volume Fraction] of Blood by Automated count 36.5 % 3 7.0 - 47.0 L [facility] Erythrocyte mean corpuscular volume [Entitic volume] by Auto mated count 88.2 fL 81.0 - 101 [facility] Erythrocyte mean corpuscular hemoglobin [Entitic mass] by Automated count 28.3 pg 27.0 - 34.0 [facility] Erythrocyte mean corpuscular hemoglobin concentration [Mass/volume] by Automated count 32.1 g/dL 31.0 - 36.0 [facility] Erythrocyte distribution width [Ratio] by Automated count 12.6 % 11.5 - 14.5 [facility] Platelets [#/volume] in Blood by Automated count 342 10^3/uL 150 - 45 0 [facility] Platelet mean volume [Entitic volume] in Blood by Automated count 10.3 fL 7.4 - 10.4 [facility] Neutrophils/100 leukocytes in Blood by Automated count 46.8 % 37. 0 - 80.0 [facility] Lymphocytes/100 leukocytes in Blood by Manual count 41.2 % 25.0 - 40.0 H [facility] Monocytes/100 leukocytes in Blood by Automated count 6.8 % 3.0 - 8.0 [facility] Eosinophils/100 leukocytes in Blood by Automated count 3.9 % 0.0 - 7.0 [facility] Basophils/100 leukocytes in Blood by Automated count 1.1 % 0.0 - 2.5 [facility] %IG 0.2 % 0.0 - 0.0 H [facility] al %NRBC 0.0 % 0.0 - 0.0 [facility] Neutrophils [#/volume] in Blood by Automated count 2.87 10^3/uL 2.00 - 6.90 [facility] Lymphocytes [#/volume] in Blood by Automated count 2.53 10^3/uL 0.60 - 3.40 [facility] Monocytes [#/volume] in Blood by Automated count 0.42 10^3/uL 0.00 - 0.90 [facility] Eosinophils [#/volume] in Blood by Automated count 0.24 10^3/uL 0.00 - 0.70 [facility] Basophils [#/volume] in Blood by Automated count 0.07 10^3/uL 0.00 - 0.20 [facility] #IG 0.01 10^3/uL 0.00 - 0.10 [facility] #NRBC 0.00 10^3/uL 0.00 - 0.00 [facility] MANUAL DIFF NOT INDICATED [facility] RBC MORPH NOT INDICATED [facility] ID Date Data Source [id number] 04/02/2020 09:44:00 PM EDT [facility] Name Value Range Interpretation Code Description Data Judith rce(s) Supporting Document(s) Lactate [Moles/volume] in Serum or Plasma 3.0 MMOL/L 0.2 - 2.2 [facility] ID Date Data Source [id number] 03/26/2020 01:07:00 PM EDT [facility] NO GROWTH AFTER 120 HOURS (5 Days) Proc edure Performed By: [facility] [address] [place] [address] Director: Larry Fowler Name Value Range Interpretation Code Description Data Judith rce(s) Supporting Document(s) ID Date Data Source [id number] 03/26/2020 01:07:00 PM EDT [facility] NO GROWTH AFTER 120 HOURS (5 Days) Proc edure Performed By: [facility] [address] [place] [address] Director: Larry Fowler Name Value Range Interpretation Code Description Data Judith rce(s) Supporting Document(s) ID Date Data Source [id number] 03/26/2020 12:21:00 PM EDT [facility] NO GROWTH AFTER 120 HOURS (5 Days) Pr ocedure Performed By: [facility] [address] [place] [address] Director: Larry Fowler Name Value Range Interpretation Code Description Data Judith rce(s) Supporting Document(s) ID Date Data Source [id number] 03/26/2020 12:21:00 PM EDT [facility] NO GROWTH AFTER 120 HOURS (5 Days) Pr ocedure Performed By: [facility] [address] [place] [address] Director: Larry Fowler Name Value Range Interpretation Code Description Data Judith rce(s) Supporting Document(s) ID Date Data Source [id number] 03/20/2020 11:15:00 PM EDT [facility] Name Value Range Interpretation Code Description Data Judith rce(s) Supporting Document(s) Lactic Acid 0.4-2.0 Normal (applies to non-numeric resu lts) [facility] ID Date Data Source [id number] 03/20/2020 11:15:00 PM EDT [facility] Name Value Range Interpretation Code Description Data Judith rce(s) Supporting Document(s) Sodium 138 mmol/L 136-145 Normal (applies to non-numeric resul ts) [facility] Potassium 3.5-5.1 Normal (applies to non-numeric resul ts) [facility] Chloride 104 mmol/L 98-107 Normal (applies to non-numeric resul ts) [facility] Carbon Dioxide CO2 21-32 Normal (applies to non-numer ic results) [facility] Anion Gap 5.0-16.0 Normal (applies to non-numeric resul ts) [facility] BUN 8 mg/dL 7-18 Normal (applies to non-numeric results) [facility] Creatinine,Serum 0.7-1.2 Normal (applies to non-numeric results) [facility] GFR >60 Normal (applies to non-numeric results) [facility] Glucose Level 97 mg/dL 60-99 Normal (applies to non-numeric re sults) [facility] Reference range is only applicable when patient is fasting Note the following drug interference: Sulfasalazine Sulfapyridine Can see falsely depressed Can see falsely elevated result with up to 17% results with up to 11% decrease in measurement increase in measurement Recommend patients be collected for this test prior to administration of either drug. Calcium 8.5-10.1 Below low normal [facility] Bilirubin,Total 0.1-1.9 Normal (applies to non-numeric results) [facility] SGOT(AST) 14 U/L 15-37 Below low normal [facility] spital Note the following drug interference: Sulfasalazine Sulfapyridine Can see falsely depressed Can see falsely elevated result with up to 10% results with up to 10% decrease in measurement increase in measurement Recommend patients be collected for this test prior to administration of either drug. SGPT(ALT) 26 U/L 12-78 Normal (applies to non-numeric resul ts) [facility] Note the following drug interference: Sulfasalazine Sulfapyridine Can see falsely depressed Can see falsely elevated result with up to 29% results with up to 10% decrease in measurement increase in measurement Recommend patients be collected for this test prior to administration of either drug. Alkaline Phosphatase 104 U/L 38-126 Normal (applies to non-num gina results) [facility] can increase Alkaline Phosp le vels up to 2 times the normal adult value. Normal values for children and adolescents are 2 to 3 times the normal adult value. Total Protein 6.0-8.2 Normal (applies to non-numeric re sults) [facility] Albumin Level 3.4-5.0 Below low normal [facility] ID Date Data Source [id number] 03/20/2020 11:15:00 PM EDT [facility] Name Value Range Interpretation Code Description Data Judith rce(s) Supporting Document(s) Amylase 56 U/L 25-115 Normal (applies to non-numeric resul ts) [facility] ID Date Data Source [id number] 03/20/2020 11:15:00 PM [facility] Name Value Range Interpretation Code Description Data Judith rce(s) Supporting Document(s) Lipase 90 U/L 73-393 Normal (applies to non-numeric resul ts) [facility] ID Date Data Source [id number] 03/20/2020 11:00:00 PM [facility] Name Value Range Interpretation Code Description Data Judith rce(s) Supporting Document(s) White Blood Count 3.5-10.5 Normal (applies to non-numeri c results) [facility] Red Blood Count 3.90-5.00 Normal (applies to non-numeric results) [facility] Hemoglobin 12.0-15.5 Normal (applies to non-numeric resul ts) [facility] Hematocrit 34.9-44.5 Normal (applies to non-numeric resul ts) [facility] Mean Corpuscular Volume 81.2-95.1 Normal (applies to non- numeric results) [facility] Mean Corpuscular Hgb 25.6-32.2 Normal (applies to non-num gina results) [facility] Mean Corpuscular Hgb Conc 32.0-36.0 Normal (applies to no n-numeric results) [facility] Red Cell Distribution Width 11.9-15.5 Normal (appli es to non-numeric results) [facility] Platelet Count 367 x10 3/uL 150-450 Normal (applies to non-numeric results) [facility] Mean Platelet Volume 9.4-12.4 Normal (applies to non-num gina results) [facility] Neutrophils% (Auto) 31.0-71.0 Normal (applies to non-nume florencio results) [facility] Lymphocytes% (Auto) 20.0-55.0 Normal (applies to non-nume florencio results) [facility] Monocytes% (Auto) 4.0-12.0 Normal (applies to non-numeri c results) [facility] Eosinophils% (Auto) 1.0-8.0 Normal (applies to non-nume florencio results) [facility] Basophils% (Auto) 0.0-2.0 Normal (applies to non-numeri c results) [facility] Immature Granulocytes% (Auto) 0.0-2.0 Normal (sade lies to non-numeric results) [facility] Neutrophils# (Auto) 1.50-6.20 Normal (applies to non-nume florencio results) [facility] Lymphocytes# (Auto) 1.20-4.00 Normal (applies to non-nume florencio results) [facility] Monocytes# (Auto) 0.00-0.90 Normal (applies to non-numeri c results) [facility] Eosinophils# (Auto) 0.00-0.50 Normal (applies to non-nume florencio results) [facility] Basophils# (Auto) 0.00-0.20 Normal (applies to non-numeri c results) [facility] Immature Granulocytes# (Auto) 0.00-7.00 No rmal (applies to non-numeric results) [facility] ID Date Data Source [id number] 03/21/2020 12:01:00 AM [facility] Imaging Services Department Imaging Report [address], [place] [address] %(RAD)RES..mtdd.print.filter("line") Name: TRAVIS MCCLELLAN : 1995 Age/Sex: 25F Ordering Provider: JOHNNY Londono Med Rec #: [id number] Reg Status: REG ER Room #: Date of Service: 03/20/20 Report Number: [id number] cc:JOHNNY Londono; PCP None Send Report To: [...] 0001 Dictation Date/Time: 03/21/202020 Transcribed Date/Time: 03/21/202020 Post Manager: Name Value Range Interpretation Code Description Data Judith rce(s) Supporting Document(s) ID Date Data Source [id number] 03/16/2020 09:47:12 PM EDT [facility] Name Value Range Interpretation Code Description Data Judith rce(s) Supporting Document(s) COLOR [facility] APPEARANCE [facility] SPEC GRAV URINE (1.003-1.030) [facility] PH URINE 6.5 (5.0-7.5) [facility] LEUK ESTERASE (NEG) [facility] CRITERIA FOR CULTURE NOT MET.CULTURE CAN BE ADDED WITHIN 36 HOURS OFCOLLECTION. NITRITE URINE (NEG) [facility] PROTEIN URINE (NEG) [facility] GLUCOSE URINE (NEG) [facility] KETONE URINE (NEG) [facility] UROBILINOGEN 1.0 mg/dL (0-1.0) [facility] BILIRUBIN URINE (NEG) [facility] BLOOD/HGB URINE (NEG) [facility] ID Date Data Source [id number] 03/16/2020 09:09:00 PM EDT [facility] DATE OF EXAM: 03/16/2020CT OF [...] disease. X1End of diagnostic report for accession: [id number] Interpreted: Marielos Wang MDTranscribed: 03/16/2020 09:05 PMSigned: 03/16/2020 09:09 PM Marielos Wang MD [facility] # [id number] [facility] # [id number] Name Value Range Interpretation Code Description Data Judith rce(s) Supporting Document(s) ID Date Data Source [id number] 03/16/2020 08:17:00 PM EDT [facility] [...] pelvis. X1End of diagnostic report for accession: [id number] Interpreted: Marielos Wang MDTranscribed: 03/16/2020 08:16 PMSigned: 03/16/2020 08:17 PM Marielos Wang MD [facility] # [id number] BILL # [id number] Name Value Range Interpretation Code Description Data Judith rce(s) Supporting Document(s) ID Date Data Source [id number] 03/16/2020 07:46:51 PM EDT [facility] Name Value Range Interpretation Code Description Data Judith rce(s) Supporting Document(s) HCG, QUAL. SERUM (NEG) [facility] ID Date Data Source [id number] 03/16/2020 07:45:06 PM EDT [facility] Name Value Range Interpretation Code Description Data Judith rce(s) Supporting Document(s) SODIUM 141 mmol/L (136-145) [facility] POTASSIUM 4.2 mmol/L (3.6-5.2) [facility] CHLORIDE 111 mmol/L (100-108) H [facility] CO2 25 mmol/L (22-31) [facility] ANION GAP 5 mmol/L (7-16) L [facility] UREA NITROGEN 6 mg/dL (7-24) L [facility] CREATININE 0.64 mg/dL (0.60-1.00) [facility] BUN/CREAT RATIO 9.4 RATIO (10.0-20.0) L [facility] GLUCOSE 79 mg/dL (70-99) [facility] CALCIUM 7.5 mg/dL (8.4-10.2) L [facility] GFR >60 ml/min/1.73m2 (>59) [facility] GFR ( AMER) >60 ml/min/1.73m2 (>59) [facility] GFR INTERPRETATION [facility] --NORMAL KIDNEY FUNCTION OR MILD DISEASE - GFR >OR= 60CHRONIC KIDNEY DISEASE - GFR 15 - 59RENAL FAILURE - GFR <15 Est. GFR calculation based on the MDRDstudy equation, which assumes a steadystate for creatinine. Est. GFR should notbe used for medication dosing. ID Date Data Source [id number] 03/16/2020 07:35:59 PM EDT [facility] Name Value Range Interpretation Code Description Data Judith rce(s) Supporting Document(s) WBC 5.0 10*3/uL (4.1-11.0) [facility] RBC 4.10 10*6/uL (4.00-5.40) [facility] HGB 11.7 g/dL (12.0-16.0) L [facility] HCT 36.5 % (36.0-47.0) [facility] MCV 89.0 fL (80.0-95.0) [facility] MCH 28.7 pg (27.0-32.0) [facility] MCHC 32.2 g/dL (32.0-36.0) [facility] RDW 13.4 % (10.5-14.5) [facility] PLT 335 10*3/uL (150-450) [facility] MPV 8.0 fL (7.1-10.7) [facility] NEUT % 40.6 % (35.0-75.0) [facility] LYMPH % 45.6 % (16.0-52.0) [facility] MONO % 8.8 % (0.0-8.0) H [facility] EOS % 3.8 % (0.0-5.0) [facility] BASO % 1.2 % (0.0-4.0) [facility] NEUT # 2.0 10*3/uL (1.8-7.7) [facility] LYMPH # 2.3 10*3/uL (1.2-4.8) [facility] MONO # 0.4 10*3/uL (0.0-0.8) [facility] Eosinophils [#/volume] in Blood by Automated count 0.2 10*3/uL (0.0-0 .5) [facility] BASO # 0.1 10*3/uL (0.0-0.2) [facility] ID Date Data Source [id number] 03/10/2020 08:10:54 PM EDT [facility] - CORE SPEC EXP DATE 03/13/2020PATI ENT ABO/Rh O POSITIVEANTIBODY SCREEN NEGATIVETESTING SITE PERFORMED AT [address] [place], [place] [address]OOD [facility] COMMENT BLOOD TYPE CONFIRMED. Name Value Range Interpretation Code Description Data Judith rce(s) Supporting Document(s) HCG,QUANT PREG 85 mU/mL Laboratory [facility] INTERPRETATION:LESS THAN 6 NEGATIVE 6 - 10 BORDERLINE (SUGGEST REPEAT IN 48 HOURS) APPROX HCG RANGE WEEKS POST LMP 11 - 130 3 - 4 WEEKS 75 - 2600 4 - 5 WEEKS 850 - 77257 5 - 6 WEEKS 4000 - [id number] 6 - 7 [id number] - [id number] 7 - 12 [id number] - [id number] 12 - 16 WEEKS 1400 - 90553 16 - 29 WEEKS 940 - 66467 29 - 41 WEEKS ID Date Data Source [id number] 03/10/2020 08:10:54 PM EDT [facility] SPEC EXP DATE 03/13/2020PATI ENT ABO/Rh O POSITIVEANTIBODY SCREEN NEGATIVETESTING SITE PERFORMED AT [address] [place], [place] [address]OOD [facility] COMMENT BLOOD TYPE CONFIRMED. Name Value Range Interpretation Code Description Data Judith rce(s) Supporting Document(s) PROGESTERONE @ 0.90 ng/mL Laboratory [facility] PROGESTERONE REFERENCE RANGE:MALE <1.97 NG/MLFEMALEMENSTRUATING FOLLICULAR 0.21 - 1.70 NG/ML LUTEAL 2.25 - 24.20 NG/ML MID-LUTEAL 8.76 - 21.60 NG/MLPOSTMENOPAUSAL < 0.90 NG/ML 1ST TRIMESTER 11.40 - 41.00 NG/ML 2ND TRIMESTER 13.80 - 156.00 NG/ML 3RD TRIMESTER >51.40 NG/ML ID Date Data Source [id number] 03/10/2020 11:37:44 PM EDT [facility] SPEC EXP DATE 03/13/2020PATI ENT ABO/Rh O POSITIVEANTIBODY SCREEN NEGATIVETESTING SITE PERFORMED AT [address] [place] [address] COMMENT BLOOD TYPE CONFIRMED. Name Value Range Interpretation Code Description Data Judith rce(s) Supporting Document(s) TYPE AND SCREEN Laboratory [facility] PATIENT ABO/Rh O POSITIVE ID Date Data Source [id number] 03/04/2020 09:52:49 PM EDT [facility] SPEC EXP DATE 03/13/2020PATI ENT ABO/Rh O POSITIVEANTIBODY SCREEN NEGATIVETESTING SITE PERFORMED AT [address] [place] [address] COMMENT BLOOD TYPE CONFIRMED. Name Value Range Interpretation Code Description Data Judith rce(s) Supporting Document(s) FREE THYROXINE @ 1.60 ng/dL (0.76-1.46) H [facility] ID Date Data Source [id number] 03/04/2020 09:52:49 PM EDT [facility] SPEC EXP DATE 03/13/2020PATI ENT ABO/Rh O POSITIVEANTIBODY SCREEN NEGATIVETESTING SITE PERFORMED AT [address] [place] [address] COMMENT BLOOD TYPE CONFIRMED. Name Value Range Interpretation Code Description Data Judith rce(s) Supporting Document(s) TSH,ULTRASENSITIVE @ 0.623 mIU/L (0.360-4.170) H [facility] ID Date Data Source [id number] 08/03/2019 06:26:43 PM EST Laboratory [facility] SPEC EXP DATE 03/13/2020PATI ENT ABO/Rh O POSITIVEANTIBODY SCREEN NEGATIVETESTING SITE PERFORMED AT [address] [place], [place] [address]OOD BANK COMMENT BLOOD TYPE CONFIRMED. Name Value [...] - CORE MPV 9.7 fL (7.1-10.7) [facility] - CORE NEUT % 49.5 % (35.0-75.0) [facility] - CORE LYMPH % 38.2 % (16.0-52.0) [facility] - CORE MONO % 7.0 % (0.0-8.0) [facility] - CORE EOS % 4.2 % (0.0-5.0) [facility] - CORE BASO % 1.1 % (0.0-4.0) [facility] - CORE NEUT # 2.2 10*3/uL (1.8-7.7) [facility] - CORE LYMPH # 1.7 10*3/uL (1.2-4.8) [facility] - CORE MONO # 0.3 10*3/uL (0.0-0.8) [facility] - CORE Eosinophils [#/volume] in Blood by Automated count 0.2 10*3/uL (0.0-0 .5) [facility] BASO # 0.0 10*3/uL (0.0-0.2) [facility] ID Date Data Source [id number] 08/03/2019 06:35:35 PM EST Laboratory [facility] SPEC EXP DATE 03/13/2020PATI ENT ABO/Rh O POSITIVEANTIBODY SCREEN NEGATIVETESTING SITE PERFORMED AT [address] COMMENT BLOOD TYPE CONFIRMED. Name Value Range Interpretation Code Description Data Judith rce(s) Supporting Document(s) PROLACTIN @ 11.6 ng/mL Laboratory [facility] Prolactin Reference Range:Males 2.5 - 17.4 ng/mLFemales Non- 2.2 - 30.3 ng/mL 8.1 - 347.6 ng/mL Postmenopausal 0.7 - 31.5 ng/mL ID Date Data Source [id number] 08/03/2019 06:52:23 PM EST Laboratory [facility] SPEC EXP DATE 03/13/2020[facility] ENT ABO/Rh O POSITIVEANTIBODY SCREEN NEGATIVETESTING SITE PERFORMED AT [address] COMMENT BLOOD TYPE CONFIRMED. Name Value Range Interpretation Code Description Data Judith rce(s) Supporting Document(s) DHEA SULFATE @ 83 ug/dL (63-380) Laboratory [facility] of [facility] ID Date Data Source [id number] 08/03/2019 07:21:10 PM EST Laboratory [facility] SPEC EXP DATE 03/13/2020PATI ENT ABO/Rh O POSITIVEANTIBODY SCREEN NEGATIVETESTING SITE PERFORMED AT [address] COMMENT BLOOD TYPE CONFIRMED. Name Value Range Interpretation Code Description Data Judith rce(s) Supporting Document(s) HEMOGLOBIN A1C @ 5.1 % (4.0-6.0) Laboratory [facility] - CORE Performed using [employer] [place] immunoassa y.Care must be taken when interpreting [id number] in patients with a hemoglobin variantor decreased erythrocyte lifespan. Values 5.7 - 6.4% suggest prediabetes.Values >=6.5% are diagnostic for diabetes.REFERENCE: DIABETES CARE 2018: 41(S13-S27). EST AVERAGE GLUCOSE 100 mg/dL [facility] ID Date Data Source [id number] 08/09/2019 09:01:25 AM EST Laboratory [facility] of [facility] SPEC EXP DATE 03/13/2020PATI ENT ABO/Rh O POSITIVEANTIBODY SCREEN NEGATIVETESTING SITE PERFORMED AT [address] [place] [address] BANK COMMENT BLOOD TYPE CONFIRMED. Name Value Range Interpretation Code Description Data [facility] rce(s) Supporting Document(s) TESTOSTERONE 30 Laboratory [facility]ian [facility] of [facility] Reference range: 9 to 55Unit: ng/dL Tota l Testosterone, Females 18 years and older Premenopausal 9-55 ng/dL Postmenopausal 5-32 ng/dL Total testosterone values may not reflect optimal concentrations in all individuals. Free or bioavailable testosterone measurements may provide supportive information. REFERENCE INTERVAL: Testosterone, LC-MS/MS Access complete set of age- and/or gender-specific reference intervals for this test in the [facility] Test Directory (Milk). Test developed and characteristics determined by [facility]. See Compliance Statement B: Milk/CS Performed by [facility], [address] [place] [address] [email or web address], Jack Christie MD, Lab. Director ID Date Data Source [id number] 03/06/2020 09:42:00 PM EDT [facility] Name Value Range Interpretation Code Description Data [facility] rce(s) Supporting Document(s) Sodium 138 mmol/L 136-145 Normal (applies to non-numeric resul ts) [facility] Potassium 3.5-5.1 Normal (applies to non-numeric resul ts) [facility] Chloride 105 mmol/L 98-107 Normal (applies to non-numeric resul ts) [facility] Carbon Dioxide CO2 21-32 Normal (applies to non-numer ic results) [facility] Anion Gap 5.0-16.0 Normal (applies to non-numeric resul ts) [facility] BUN 7 mg/dL 7-18 Normal (applies to non-numeric results) [facility] Creatinine,Serum 0.7-1.2 Normal (applies to non-numeric results) [facility] GFR >60 Normal (applies to non-numeric results) [facility] Glucose Level 79 mg/dL 60-99 Normal (applies to non-numeric re sults) [facility] Reference range is only applicable when patient is fasting Note the following drug interference: Sulfasalazine Sulfapyridine Can see falsely depressed Can see falsely elevated result with up to 17% results with up to 11% decrease in measurement increase in measurement Recommend patients be collected for this test prior to administration of either drug. Calcium 8.5-10.1 Below low normal [facility] spital ID Date Data Source [id number] 03/06/2020 09:42:00 PM EDT [facility] Name Value Range Interpretation Code Description Data Judith rce(s) Supporting Document(s) Beta HCG,Quantitative 144 mIU/mL Normal (applies to non-nu meric results) [facility] Non-preganant:0-5 mIU/mL 0. 2- Week: 5-50 mIU/mL 1-2 Weeks: 50-500 mIU/mL 2-3 Weeks: 100-5,000 mIU/mL 3-4 Weeks: 500-10,000 mIU/mL 4-5 Weeks: 1,000-50,000 mIU/mL 5-6 Weeks: 10,000-100,000 mIU/mL 6-8 Weeks: 15,000-200,000 mIU/mL 2-3 Months: 10,000-100,000 mIU/mL ID Date Data Source [id number] 03/06/2020 09:19:00 PM EDT [facility] Name Value Range Interpretation Code Description Data Judith rce(s) Supporting Document(s) White Blood Count 3.5-10.5 Normal (applies to non-numeri c results) [facility] Red Blood Count 3.90-5.00 Normal (applies to non-numeric results) [facility] Hemoglobin 12.0-15.5 Normal (applies to non-numeric resul ts) [facility] Hematocrit 34.9-44.5 Normal (applies to non-numeric resul ts) [facility] Mean Corpuscular Volume 81.2-95.1 Normal (applies to non- numeric results) [facility] Mean Corpuscular Hgb 25.6-32.2 Normal (applies to non-num gina results) [facility] Mean Corpuscular Hgb Conc 32.0-36.0 Normal (applies to no n-numeric results) [facility] Red Cell Distribution Width 11.9-15.5 Normal (appli es to non-numeric results) [facility] Platelet Count 340 x10 3/uL 150-450 Normal (applies to non-numeric results) [facility] Mean Platelet Volume 9.4-12.4 Normal (applies to non-num gina results) [facility] Neutrophils% (Auto) 31.0-71.0 Normal (applies to non-nume florencio results) [facility] Lymphocytes% (Auto) 20.0-55.0 Normal (applies to non-nume florencio results) [facility] Monocytes% (Auto) 4.0-12.0 Normal (applies to non-numeri c results) [facility] Eosinophils% (Auto) 1.0-8.0 Normal (applies to non-nume florencio results) [facility] Basophils% (Auto) 0.0-2.0 Normal (applies to non-numeri c results) [facility] Immature Granulocytes% (Auto) 0.0-2.0 Normal (sade lies to non-numeric results) [facility] Neutrophils# (Auto) 1.50-6.20 Normal (applies to non-nume florencio results) [facility] Lymphocytes# (Auto) 1.20-4.00 Normal (applies to non-nume florencio results) [facility] Monocytes# (Auto) 0.00-0.90 Normal (applies to non-numeri c results) [facility] Eosinophils# (Auto) 0.00-0.50 Normal (applies to non-nume florencio results) [facility] Basophils# (Auto) 0.00-0.20 Normal (applies to non-numeri c results) [facility] Immature Granulocytes# (Auto) 0.00-7.00 No rmal (applies to non-numeric results) [facility] ID Date Data Source [id number] 03/07/2020 08:39:00 AM EDT [facility] aye [facility] Imaging Services Department Imaging Report [address] [place], [place] [address] %(RAD)RES..mtdd.print.filter("line") Name: TRAVIS MCCLELLAN : 1995 Age/Sex: 25F Ordering Provider: JOHNNY Mckeon Med Rec #: [id number] Reg Status: DEP ER Room #: Date of Service: 03/06/20 Report Number: [id number] cc:PCP None Send Report To: [id number] US/US Transvaginal OB Reason for exam: right [...] Salgado MD> 03/07/20 1132 Dictation Date/Time: 03/06/20 2132 Transcribed Date/Time: 03/07/20 0839 Transcri ptionist: PANFILOROGELIO Name Value Range Interpretation Code Description Data Judith rce(s) Supporting Document(s) ID Date Data Source [id number] 03/02/2020 01:31:00 PM [facility] Name Value Range Interpretation Code Description Data Judith rce(s) Supporting Document(s) Beta HCG,Quantitative 43 mIU/mL Normal (applies to non-nu meric results) [facility] Non-preganant:0-5 mIU/mL 0. 2- Week: 5-50 mIU/mL 1-2 Weeks: 50-500 mIU/mL 2-3 Weeks: 100-5,000 mIU/mL 3-4 Weeks: 500-10,000 mIU/mL 4-5 Weeks: 1,000-50,000 mIU/mL 5-6 Weeks: 10,000-100,000 mIU/mL 6-8 Weeks: 15,000-200,000 mIU/mL 2-3 Months: 10,000-100,000 mIU/mL ID Date Data Source [id number] 03/02/2020 03:47:00 PM [facility] Imaging Services Department Imaging Report [address] [place] [address] %(RAD)RES..mtdd.print.filter("line") Name: TRAVIS HUMPHRIES : 1995 Age/Sex: 25F Ordering Provider: JOHNNY Londono Med Rec #: [id number] Reg Status: [facility] ER Room #: Date of Service: 03/02/20 Report Number: [id number] cc:JOHNNY Londono; PCP None Send Report To: [id number] US/US OB Limited Study Reason for exam: [...] Date/Time: 03/02/20 1506 Transcribed Date/Time: 03/02/20 1547 Post Manager: LEILA Name Value Range Interpretation Code Description Data [facility] rce(s) Supporting Document(s) ID Date Data Source [id number] 03/02/2020 11:51:00 AM EDT [facility] Collected By: Nurse Initials: AF Time Collected: 1109 Collected By: Nurse Initials: AF Time Collected: 1109 Name Value Range Interpretation Code Description Data Judith rce(s) Supporting Document(s) Color,Urine Colorl-Dk Y Normal (applies to non-numeric res ults) [facility] Clarity,Urine Clear Normal (applies to non-numeric re sults) [facility] Specific [place],Urine 1.005-1.030 Normal (applies to non- numeric results) [facility] pH,Urine 5.0-8.0 Normal (applies to non-numeric resul ts) [facility] Protein,Urine Negative [facility] Glucose,Urine Negative Normal (applies to non-numeric re sults) [facility] Ketones,Urine Negative Normal (applies to non-numeric re sults) [facility] Blood,Urine Negative [facility] l Bilirubin,Urine Negative Normal (applies to non-numeric results) [facility] Urobilinogen,Urine 0.2-1.0 Normal (applies to non-numer ic results) [facility] Leukocyte Esterase,Urine Negative Normal (applies to non -numeric results) [facility] Nitrite,Urine Negative Normal (applies to non-numeric re sults) [facility] RBC,Urine None Seen [facility] WBC,Urine None Seen Normal (applies to non-numeric resul ts) [facility] Casts,Urine None Seen Normal (applies to non-numeric resu lts) [facility] Squamous Cells,Urine None Seen [facility] Bacteria,Urine None Seen [facility] ital Mucus,Urine None Seen [facility] l ID Date Data Source [id number] 03/02/2020 11:51:00 AM EDT [facility] Collected By: Nurse Initials: AF Time Collected: 1109 Collected By: Nurse Initials: AF Time Collected: 1109 Name Value Range Interpretation Code Description Data Judith rce(s) Supporting Document(s) HCG,Ur Negative Normal (applies to non-numeric results) [facility] ID Date Data Source [id number] 12/06/2019 07:26:00 AM EDT [facility] spital REFLEX COVID 19 IF RP NEG This Respirat ory Panel DOES NOT test for the Novel 2018- Coronovirus (2019-nCoV) from [facility]. If patient is suspected of having [...] Name Value Range Interpretation Code Description [facility] Document(s) ID Date Data Source [id number] 12/05/2019 06:20:00 PM EDT [facility] REFLEX COVID 19 IF RP NEG This Respirat ory Panel DOES NOT test for the Novel 2018- Coronovirus (2019-nCoV) from [facility]. If patient is suspected of having the Novel 2018 Coronovirus notify the Health Department IMMEDIATELY. Methodology: Multiplexed PCR Reference Range: None detected Name Value Range Interpretation Code Description Data [facility](s) Supporting Document(s) ID Date Data Source [id number] 12/05/2019 12:19:00 PM EDT [facility] Method performed by Isothermal Nucle ic [...] Name Value Range Interpretation Code Description Data [facility](s) Supporting Document(s) ID Date Data Source [id number] 12/05/2019 12:15:00 [facility] Method performed by isothermal nucleic acid amplification. Reference value: Negative for Strep A nucleic acid. Confirmatory culture is NOT required for negative results unless clinical symptoms persist, in the event of an acute rheumatic fever outbreak, or if ordered by provider.Negative Name Value Range Interpretation Code Description Data [facility](s) Supporting Document(s) ID Date Data Source [id number] 11/30/2019 11:00:00 AM EDT [facility] Imaging Services Department Imaging Report [address] [place] [id number] %(RAD)RES..mtdd.print.filter("line") Name: CORONADOGREY,TRAVIS : 1995 Age/Sex: 24F Ordering Provider: JOHNNY Hassan Med Rec #: [id number] Reg Status: [facility] Room #: Date of Service: 11/28/19 Report Number: [id number] cc:PCP None; JOHNNY Hassan Send Report To: [id number] US/US Transvaginal OB Reason for exam: 6 [...] Date/Time: 11/30/19 0918 Transcribed Date/Time: 11/30/19 1100 Post Manager: SANDRITA Name Value Range Interpretation Code Description Data Judith rce(s) Supporting Document(s) ID Date Data Source [id number] 11/28/2019 01:09:00 PM [facility] Name Value Range Interpretation Code Description Data Judith rce(s) Supporting Document(s) Beta HCG,Quantitative 1 mIU/mL Normal (applies to non-nu meric results) [facility] Non-preganant:0-5 mIU/mL 0. 2- Week: 5-50 mIU/mL 1-2 Weeks: 50-500 mIU/mL 2-3 Weeks: 100-5,000 mIU/mL 3-4 Weeks: 500-10,000 mIU/mL 4-5 Weeks: 1,000-50,000 mIU/mL 5-6 Weeks: 10,000-100,000 mIU/mL 6-8 Weeks: 15,000-200,000 mIU/mL 2-3 Months: 10,000-100,000 mIU/mL ID Date Data Source [id number] 11/28/2019 12:00:00 PM [facility] Name Value Range Interpretation Code Description Data [facility] rce(s) Supporting Document(s) White Blood Count 3.5-10.5 Normal (applies to non-numeri c results) [facility] Red Blood Count 3.90-5.00 Normal (applies to non-numeric results) [facility] Hemoglobin 12.0-15.5 Normal (applies to non-numeric resul ts) [facility] Hematocrit 34.9-44.5 Normal (applies to non-numeric resul ts) [facility] Mean Corpuscular Volume 81.2-95.1 Normal (applies to non- numeric results) [facility] Mean Corpuscular Hgb 25.6-32.2 Normal (applies to non-num gina results) [facility] Mean Corpuscular Hgb Conc 32.0-36.0 Normal (applies to no n-numeric results) [facility] Red Cell Distribution Width 11.9-15.5 Normal (appli es to non-numeric results) [facility] Platelet Count 307 x10 3/uL 150-450 Normal (applies to non-numeric results) [facility] Mean Platelet Volume 9.4-12.4 Normal (applies to non-num gina results) [facility] Neutrophils% (Auto) 31.0-71.0 Normal (applies to non-nume florencio results) [facility] Lymphocytes% (Auto) 20.0-55.0 Normal (applies to non-nume florencio results) [facility] Monocytes% (Auto) 4.0-12.0 Normal (applies to non-numeri c results) [facility] Eosinophils% (Auto) 1.0-8.0 Normal (applies to non-nume florencio results) [facility] Basophils% (Auto) 0.0-2.0 Normal (applies to non-numeri c results) [facility] Immature Granulocytes% (Auto) 0.0-2.0 Normal (sade lies to non-numeric results) [facility] Neutrophils# (Auto) 1.50-6.20 Normal (applies to non-nume florencio results) [facility] Lymphocytes# (Auto) 1.20-4.00 Normal (applies to non-nume florencio results) [facility] Monocytes# (Auto) 0.00-0.90 Normal (applies to non-numeri c results) [facility] Eosinophils# (Auto) 0.00-0.50 Normal (applies to non-nume florencio results) [facility] Basophils# (Auto) 0.00-0.20 Normal (applies to non-numeri c results) [facility] Immature Granulocytes# (Auto) 0.00-7.00 No rmal (applies to non-numeric results) [facility] ID Date Data Source [id number] 11/28/2019 12:48:00 PM EDT [facility] Collected By: Nurse Initials: ab Time Collected: 1206 Name Value Range Interpretation Code Description [facility] Supporting Document(s) Color,Urine Colorl-Dk Y Normal (applies to non-numeric res ults) [facility] Clarity,Urine Clear Normal (applies to non-numeric re sults) [facility] Specific [place],Urine 1.005-1.030 Normal (applies to non- numeric results) [facility] pH,Urine 5.0-8.0 Normal (applies to non-numeric resul ts) [facility] Protein,Urine Negative Normal (applies to non-numeric re sults) [facility] Glucose,Urine Negative Normal (applies to non-numeric re sults) [facility] Ketones,Urine Negative Normal (applies to non-numeric re sults) [facility] Blood,Urine Negative Normal (applies to non-numeric resu lts) [facility] Bilirubin,Urine Negative Normal (applies to non-numeric results) [facility] Urobilinogen,Urine 0.2-1.0 Normal (applies to non-numer ic results) [facility] Leukocyte Esterase,Urine Negative Normal (applies to non -numeric results) [facility] Nitrite,Urine Negative Normal (applies to non-numeric re sults) [facility] ID Date Data Source [id number] 10/25/2019 03:51:00 PM EST [facility] Name Value Range Interpretation Code Description Data [facility] rce(s) Supporting Document(s) Thyrotropin [Units/volume] in [...] Ever Smoked complete d Denies Ever Smoked [facility] Smoking 10/25/2019 12:00:00 AM EST Patient has never smoked co mpleted Patient has never smoked [facility] Vital Signs ID Date Data Source UNK Name Value Range Interpretation Code Description Data Source(s) Body mass index (BMI) [Ratio] 39.9 kg/m2 No rmal (applies to non-numeric results) 39.9 kg/m2 [facility] Body weight Measured 240 [lb_av] Normal (applies to n on-numeric results) 240 [lb_av] [facility] Body temperature 36.7 ramila Normal (applies to non-numeric results) 36.7 ramila [facility] Respiratory rate 14 min Normal (applies to non-numeric results) 14 min [facility] Deprecated Oxygen saturation in Capillary blood by Oximetry 99 % Normal (applies to non-numeric results) 99 % [facility] Body height 164.592 cm Normal (applies to non-numeric resu lts) 164.592 cm [facility] Heart rate 85 min Normal (applies to non-numeric resul ts) 85 min [facility] Diastolic blood pressure 88 mm[Hg] Normal (applies to non-numeric results) 88 mm[Hg] [facility] Systolic blood pressure 128 mm[Hg] Normal (applies t o non-numeric results) 128 mm[Hg] [facility] Body mass index (BMI) [Ratio] 47.9 kg/m2 [...] [facility] ID Date Data Source [id number] 03/26/2020 01:07:00 PM [facility]T [facility] Name Value Range Interpretation Code Description Data Source(s) Weight Measurement Method 8 8 [facility] Weight 5040 5040 [facility] pital Temperature Source 7 7 [facility] Temperature 98 98 [facility] spital Respiratory Rate 18 18 [facility] Pulse Assessment Method 4 4 G [facility] Weight Measurement Method 8 8 [facility] Weight 5040 5040 [facility] pital Temperature Source 7 7 [facility] Temperature 98.2 98.2 [facility] spital Respiratory Rate 18 18 [facility] Pulse Rate 57 57 [facility] pital Height 71 71 [facility] 130/74 130/74 [facility] Weight Measurement Method 8 8 [facility] Weight 5040 5040 [facility] pital Temperature Source 7 7 [facility] Temperature 98.2 98.2 [facility] spital Respiratory Rate 18 18 [facility] Pulse Rate 69 69 [facility] pital Height 71 71 [facility] Blood Pressure 183/108 183/108 [facility] ID Date Data Source [id number] 03/07/2020 11:32:00 AM EDT [facility] Name Value Range Interpretation Code Description Data Source(s) Weight Measurement Method 8 8 [facility] Weight 5600 5600 [facility] pital Temperature Source 7 7 [facility] Temperature 97.9 97.9 [facility] spital Respiratory Rate 18 18 [facility] Pulse Rate 107 107 [facility] Height 72 72 [facility] pital Blood Pressure 134/51 134/51 [facility] Weight Measurement Method 8 8 [facility] Weight 5600 5600 [facility] pital Temperature Source 7 7 [facility] Temperature 97.9 97.9 [facility] spital Respiratory Rate 18 18 [facility] Pulse Rate 107 107 [facility] pital Height 72 72 [facility] pital Blood Pressure 134/51 134/51 [facility] ID Date Data Source [id number] 03/04/2020 07:31:00 AM EDT [facility] spital Name Value Range Interpretation Code Description Data Source(s) Weight Measurement Method 8 8 [facility] Weight 5600 5600 [facility] pital Temperature Source 7 7 [facility] Temperature 97.9 97.9 [facility] spital Respiratory Effort 1 1 [facility] Respiratory Rate 18 18 [facility] Pulse Assessment Method 4 4 G [facility] Pulse Rate 77 77 [facility] pital Height 71 71 [facility] pital Blood Pressure 118/85 118/85 [facility] Weight Measurement Method 8 8 [facility] Weight 5600 5600 [facility] pital Temperature Source 7 7 [facility] Temperature 96.5 96.5 [facility] spital Respiratory Effort 1 1 [facility] Respiratory Rate 18 18 [facility] Pulse Assessment Method 4 4 G [facility] Pulse Rate 90 90 [facility] pital Height 71 71 [facility] pital Blood Pressure 122/82 122/82 [facility] ID Date Data Source [id number] 12/06/2019 07:26:00 AM EDT [facility] spital Name Value Range Interpretation Code Description Data Source(s) Weight Measurement Method 8 8 [facility] Weight 5520 5520 [facility] pital Temperature Source 7 7 [facility] Temperature 97.2 97.2 [facility] Respiratory Effort 1 1 [facility] Respiratory Rate 18 18 [facility] Pulse Assessment Method 4 4 G [facility] Pulse Rate 75 75 [facility] pital Height 71 71 [facility] pital Blood Pressure 142/104 142/104 [facility] Weight Measurement Method 8 8 [facility] Weight 5520 5520 [facility] pital Temperature Source 7 7 [facility] Temperature 97.3 97.3 [facility] Respiratory Effort 1 1 [facility] Respiratory Rate 18 18 [facility] Pulse Assessment Method 4 4 G [facility] Pulse Rate 75 75 [facility] pital Height 71 71 [facility] pital Blood Pressure 142/104 142/104 [facility] Weight Measurement Method 8 8 [facility] Weight 5520 5520 [facility] pital Temperature Source 7 7 [facility] Temperature 97.3 97.3 [facility] spital Respiratory Effort 1 1 [facility] Respiratory Rate 18 18 [facility] Pulse Assessment Method 4 4 G [facility] Pulse Rate 75 75 [facility] pital Height 71 71 [facility] pital Blood Pressure 142/104 142/104 [facility] ID Date Data Source [id number] 11/30/2019 03:06:00 PM EDT [facility] Name Value Range Interpretation Code Description Data Source(s) Weight Measurement Method 8 8 [facility] Weight 5440 5440 [facility] pital Temperature Source 7 7 [facility] Temperature 98.0 98.0 [facility] Respiratory Effort 1 1 [facility] Respiratory Rate 16 16 [facility] Pulse Assessment Method 4 4 [facility] Pulse Rate 87 87 [facility] pital Height 71 71 [facility] Blood Pressure 143/99 143/99 [facility] Weight Measurement Method 8 8 [facility] Weight 5440 5440 [facility] pital Temperature Source 7 7 [facility] Temperature 98.0 98.0 [facility] Respiratory Effort 1 1 [facility] Respiratory Rate 16 16 [facility] Pulse Assessment Method 4 4 [facility] Pulse Rate 87 87 [facility] pital Height 71 71 [facility] p[facility] Blood Pressure 143/99 143/99 [facility] Weight Measurement Method 8 8 [facility] Weight 5440 5440 [facility] pital Temperature Source 7 7 [facility] Temperature 98.0 98.0 [facility] Respiratory Effort 1 1 [facility] Respiratory Rate 16 16 [facility] Pulse Assessment Method 4 4 [facility] Pulse Rate 87 87 [facility] pital Height 71 71 [facility] p[facility] Blood Pressure 143/99 143/99 [facility] Weight Measurement Method 8 8 [facility] Weight 5440 5440 [facility] pital Temperature Source 7 7 [facility] Temperature 98.0 98.0 [facility] Respiratory Effort 1 1 [facility] Respiratory Rate 16 16 [facility] Pulse Assessment Method 4 4 [facility] Pulse Rate 87 87 [facility] p[facility] Height 71 71 [facility] pital Blood Pressure 143/99 143/99 [facility] Weight Measurement Method 8 8 [facility] Weight 5440 5440 [facility] p[facility] Temperature Source 7 7 [facility] Temperature 98.0 98.0 [facility] Respiratory Effort 1 1 [facility] Respiratory Rate 16 16 [facility] Pulse Assessment Method 4 4 [facility] Pulse Rate 87 87 [facility] pital Height 71 71 [facility] p[facility] Blood Pressure 143/99 143/99 [facility] ID Date Data Source [id number] 10/12/2019 07:44:00 AM EST [facility] Name Value Range Interpretation Code Description Data Source(s) Weight Measurement Method 8 8 [facility] Weight 5520 5520 [facility] pital Temperature Source 7 7 [facility] Temperature 96.5 96.5 [facility] spital Respiratory Effort 1 1 [facility] Respiratory Rate 16 16 [facility] Pulse Assessment Method 4 4 [facility] Pulse Rate 81 81 [facility] pital Height 72 72 [facility] p[facility] Blood Pressure 122/84 122/84 [facility] Weight Measurement Method 8 8 [facility] Weight 5520 5520 [facility] pital Temperature Source 7 7 [facility] Temperature 96.5 96.5 [facility] spital Respiratory Effort 1 1 [facility] Respiratory Rate 16 16 [facility] Pulse Assessment Method 4 4 [facility] Pulse Rate 81 81 [facility] Height 72 72 [facility] 122/84 122/84 [facility] Weight Measurement Method 8 8 [facility] Weight 5520 5520 [facility] p[facility] Temperature Source 7 7 [facility] Temperature 96.5 96.5 [facility] spital Respiratory Effort 1 1 [facility] Respiratory Rate 16 16 [facility] Pulse Assessment Method 4 4 [facility] Pulse Rate 81 81 [facility] p[facility] Height 72 72 [facility] p[facility] Blood Pressure 122/84 122/84 [facility] Patient Treatment Plan of Care Planned Activity Planned Date Details Description Data Source (s) Misoprostol 0.2 MG Oral Tablet 08/11/2019 12:00:00 AM EST [facility] pantoprazole 40 MG Delayed Release Oral Tablet 08/11/2019 12:00:00 AM EST [facility] Sucralfate 1000 MG Oral Tablet 08/11/2019 12:00:00 AM EST [facility] Multiple Vitamins-Iron (MULTIVITAMIN WITH IRON) TABS 019 12:00:00 AM EDT [facility]
== END 2020-10-28 00:31 | disposition home or self-care (01) ==
LOC: M ED 21:05
DX: R51.9 Headache, unspecified (principal); E03.9 Hypothyroidism, unspecified; Z98.84 Bariatric surgery status; Z79.899 Other long term (current) drug therapy; Z79.890 Hormone replacement therapy
CPT/HCPCS: 70450; 96374; 96375; 99284; J1200; J1885; J2765

== ENCOUNTER 2020-11-24 15:32 | Inpatient (IN) | payer OTHER ==
[~2020-11-24] VITALS: Ht 180.3 cm; Wt 163.6 kg
[2020-11-24 17:50] LABS: HEMATOCRIT 37.2 % (36.0-47.0); MEAN CORPUSCULAR HEMOGLOBIN 28.7 pg (27.0-33.0); MEAN CORPUSCULAR HGB CONC 32.3 g/dl (32.0-36.5); PLATELET COUNT, AUTOMATED 333 10^3/uL (150-450); RED BLOOD COUNT 4.18 10^6/uL (4.00-5.40); WHITE BLOOD COUNT 5.5 10^3/uL (4.0-10.0)
[2020-11-24 18:29] LABS: HCG, SERUM QUALITATIVE NEGATIVE (NEGATIVE)
[2020-11-24 18:49] LABS: ACETAMINOPHEN LEVEL < 2.0 UG/ML (10.0-30.0); ALBUMIN 3.6 GM/DL (3.2-5.2); ALT/SGPT 16 U/L (12-78); BILIRUBIN,DIRECT < 0.1 MG/DL (0.0-0.2); BILIRUBIN,TOTAL 0.3 MG/DL (0.2-1.0); BLOOD UREA NITROGEN 7 MG/DL (7-18); CALCIUM LEVEL 8.1 MG/DL (8.5-10.1); CARBON DIOXIDE LEVEL 27 MEQ/L (21-32); CHLORIDE LEVEL 110 MEQ/L (98-107); CREATININE FOR GFR 0.72 MG/DL (0.55-1.30); ETHYL ALCOHOL (ETHANOL) < 0.003 % (0.000-0.010); GLOMERULAR FILTRATION RATE > 60.0 (>60); GLUCOSE, FASTING 91 MG/DL (70-100); SALICYLATE LEVEL < 1.7 MG/DL (5.0-30.0); SODIUM LEVEL 142 MEQ/L (136-145); TOTAL PROTEIN 7.7 GM/DL (6.4-8.2)
[2020-11-24] MEDS ORDERED: ACETAMINOPHEN 325 MG TAB PO ONE (18:50)
[2020-11-24 20:50] LABS: AMPHETAMINES LEVEL URINE NEGATIVE (NEGATIVE); BARBITURATES URINE NEGATIVE (NEGATIVE); BENZODIAZEPINES URINE NEGATIVE (NEGATIVE); CANNABINOIDS URINE POSITIVE (NEGATIVE); COCAINE METABOLITE URINE NEGATIVE (NEGATIVE); METHADONE URINE NEGATIVE (NEGATIVE); OPIATES URINE NEGATIVE (NEGATIVE); PHENCYCLIDINE URINE NEGATIVE (NEGATIVE)
[2020-11-24 20:55] LABS: RSV AMPLIFICATION NEGATIVE (NEGATIVE)
[2020-11-24] MEDS ORDERED: BENA25TA5 PO (21:07)
[2020-11-24] MEDS ORDERED: CLOT1CRE27 TOP (21:07)
[2020-11-24] MEDS ORDERED: IMIT100T PO (21:07)
[2020-11-24] MEDS ORDERED: OMEP1CAP73 PO (21:07)
[2020-11-24] MEDS ORDERED: IBUP1TAB7 PO (21:07)
[2020-11-24] MEDS ORDERED: NICOTINE 21MG/24HR 1 EA TRANSDERMAL TD PRN (21:45)
[2020-11-24] MEDS ORDERED: MOM 30ML SUSPENSION UDC PO PRN (21:45)
[2020-11-24] MEDS ORDERED: ACETAMINOPHEN TAB 650MG DOSE (2X325MG) PO PRN (21:45)
[2020-11-24] MEDS ORDERED: traZODone 50 MG TAB PO PRN (21:45)
[2020-11-24] MEDS ORDERED: MAALOX 30 ML SUSP *UDC PO PRN (21:45)
[2020-11-24] MEDS ORDERED: OLANZapine ORAL DISINTEGRATING TAB 5MG PO PRN (21:45)
[2020-11-24 23:20] VITALS: BP 161/83
[2020-11-25] MEDS: LEVOTHYROXINE 112MCG TABLET (0.112MG) PO SCH (06:34)
[2020-11-25] MEDS ORDERED: INFLUENZA QUADRIVALENT PF VACCINE 0.5ML SYRINGE IM ONE (09:00)
[2020-11-25] MEDS ORDERED: hydrOXYzine 50 MG TAB PO PRN (14:55)
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
[2020-11-25] MEDS: fluvoxaMINE MALEATE 50 MG TAB PO SCH (19:52)
[2020-11-25] MEDS: busPIRone 5 MG TAB PO SCH (19:52)
[2020-11-25] MEDS ORDERED: diphenhydrAMINE 50MG CAP PO SCH (21:00)
[2020-11-26] MEDS: LEVOTHYROXINE 112MCG TABLET (0.112MG) PO SCH (05:47)
[2020-11-26] MEDS: busPIRone 5 MG TAB PO SCH ×2 (08:51→20:25)
--- NOTE | 2020-11-26 11:43 | HPEPDOC ---
General Date of Admission Nov 24, 2020 at 15:33 Date of Service: Nov 26, 2020 Chief Complaint The patient is a 25-year-old female admitted with a reason for visit of Unspecified Mood Disorder. Source: Patient History of Present Illness 25 year old morbidly obese female was admitted to [facility] for depression with suicidal thoughts. Today she is complaining of severe headache dull throbbing type all over the head causing her to feel nauseous. she is requesting her migraine medicine. Home Medications Scheduled Clotrimazole (Clotrimazole) 1% 30GM Cream..g., 1 DOSE TOP DAILY, (Reported) APPLY TO RASH ON STOMACH AFTER SHOWER Levothyroxine Sodium (Levothyroxine Sodium) 112 Mcg Tablet, 224 MCG PO DAILY, (Reported) Omeprazole (Omeprazole) 20 Mg Capsule.dr, 40 MG PO DAILY, (Reported) diphenhydrAMINE HCl (Benadryl Allergy) 25 Mg Tablet, 50 MG PO QHS, (Reported) Scheduled PRN Ibuprofen (Ibuprofen) 800 Mg Tablet, 800 MG PO BID PRN for HEADACHE, (Reported) Sumatriptan Succinate (Imitrex) 100 Mg Tablet, 100 MG PO BID PRN for MIGRAINE, (Reported) Allergies Coded Allergies: cantaloupe (Verified Allergy, Intermediate, swelling, itchy, 11/25/20) cephalexin (Verified Allergy, Intermediate, rash, 02/09/19) melon (Verified Allergy, Intermediate, honeydew - swelling, itchy, 11/25/20) Past Medical History Medical History Morbid obesity s/p gastric bypass surgery in jun 2019 Bowel perforation in jul 2019 Reactive hypoglycemia/ dumping syndrome Anxiety and depression h/o graves disease s/p total thyroidectomy in november 2018 Secondary Hypothyroidism Migraine childhood asthma Gastritis. insomnia Surgical History Gastric Bypass in 2019 bowel perforation in 2019 after gastric bypass surgery. total thyroidectomy C section patella surgery in 2014 wisdom tooth removal Family History Biological Father- [place] Maternal Grandmother - Breast cancer, [place] Mother drug addict Mother, maternal Aunts with asthma. Social History * Smoker: Denies Alcohol: Denies Drugs: marijuana ( in [place]) A-FIB/CHADSVASC A-FIB History Current/History of A-Fib/PAF?: No Review of Systems Constitutional: Denies: Chills, Fever, Night Sweats Eyes: Denies: Pain, Vision change ENT: Reports: Head Aches; Denies: Ear Pain, Dysphagia Skin: Denies: Rash, Lesions, Breakdown Pulmonary: Denies: Dyspnea, Cough Cardiovascular: Denies: Chest Pain, Palpitations, Orthopnea, Paroxysmal Noc. Dyspnea, Lt Headedness Gastrointestinal: Reports: Nausea; Denies: Vomiting, Abdominal Pain, Diarrhea Genitourinary: Denies: Dysuria, Frequency, Incontinence, Retention Hematologic: Denies: Bruising, Bleeding Excessively Physical Examination General Exam: Positive: Alert, Cooperative, No Acute Distress Eye Exam: Positive: PERRLA, Conjunctiva & lids normal, EOMI, Other Eye Symptoms (bilateral proptosis); Negative: Sclera icteric ENT Exam: Positive: Atraumatic, Mucous membr. moist/pink, Pharynx Normal Neck Exam: Positive: Supple; Negative: JVD, thyromegaly Chest Exam: Positive: Clear to auscultation, Normal air movement Heart Exam: Positive: Rate Normal, Regular Rhythm, Normal S1, Normal S2; Negative: Murmurs, Rubs Abdomen Exam: Positive: Normal bowel sounds, Soft; Negative: Tenderness, Hepatospenomegaly Extremity Exam: Positive: Normal pulses; Negative: Clubbing, Cyanosis, Edema Vital Signs Vital Signs Date Time Temp Pulse Resp B/P (MAP) Pulse Ox O2 Delivery O2 Flow Rate FiO2 11/24/20 23:20 97.5 66 18 161/83 (109) 98 Room Air Assessment/Plan 25 year old morbidly obese female was admitted to [facility] for depression with suicidal thoughts. She is being medically examined today. Depression/ suicidal thoughts as per psychiatry Morbid obesity s/p gastric bypass surgery in jun 2019 complicated by Bowel perforation in jul 2019/ gastritis continue PPI Reactive hypoglycemia ? dumping syndrome diagnosed last year at [place] H/o graves disease s/p total thyroidectomy in november 2018 with Secondary Hypothyroidism synthroid Migraine amitriptyline Plan / VTE VTE Prophylaxis Ordered?: No HOLDEN MILLER MD Nov 26, 2020 07:59
[2020-11-26] MEDS: SUMAtriptan SUCCINATE 25 MG TAB PO PRN (13:38)
[2020-11-26] MEDS: IBUPROFEN 600MG TAB PO PRN (13:39)
--- NOTE | 2020-11-26 14:05 | MHIPNPDOC ---
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 States that she thinks she has ADHD. Her brother has it. She states that she has to have a plan for for cleaning. Her tried to help her but he took some of the supplies out of order and this upset her, they argued and he called it dumb and stupid. She reports feeling sad and depressed and says "I lost it." She was going to see her son's Godmother but as she pulled out of the apartment complex, she felt suicidal with no plan and didn't want to be "here" anymore. She called 911 and asked her to take her son. PER ED REPORT: Pt. called police, was at [facility], stated she was having suicidal thoughts, wanted to come to hospital. Pt. reports she has been having marital problems. She reports feeling depressed, spouse gets frustrated with her because he doesn't understand her triggers and he is verbally abusive. Pt. states she grew up in foster care in [place]. She reports she always thoughts she was pretty normal but has been finding out that she has issues with people not doing things the same way that she does. She states this morning she was cleaning and likes to put all the cleaning supplies in each room before she starts cleaning and when her took one of the spray bottles to use it, she became upset because it was no longer where she put it and that upset her process and in turn made her upset. She reports she told her and he called her stupid and said "Do you know how stupid that sounds?" Pt. reports it makes her feel very bad about herself and started thinking that she may be better off . Pt. is very tearful during interview. She reports she left the house with her three year old and was going to drive to [place]. to visit a her sons godmother but was crying so much, she couldnt see and pulled into the [facility]. She called her to come and get their son and she called police. She states she has thought of taking an overdose. She reports she did take overdose at age 15 and was admitted to psychiatric facility. She reports sh e thinks she may have have ADHD due to difficulty concentrating. VITAL SIGNS: See below. CURRENT MEDICATIONS: See below. 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 Denies suicidal/h omicidal ideation, planning or intent. Abstract reasoning, and computation: fair Description of associations: denies, none observed Description of abnormal or psychotic thoughts: denies, none observed. Judgment: fair Insight: fair Orientation: alert and oriented to person, place, time and situation Recent and remote memory: intact Attention span and concentration: good Language: expansive Fund of knowledge: average Mood: Less depressed mood Affect: constricted DIAGNOSES: Unspecified Depressive Disorder Generalized Anxiety Disorder Panic Disorder Obsessive-Compulsive Disorder ASSESSMENT: Patient reports that she is less depression and anxious. She does not endorse suicidality. 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 Patient states that she did not have OCD traits growing up and that this had only started within the past year or so. She initially denied any stressors but later stated that she had several miscarriages and that started her anxiety and compulsive and obsessive cleaning behaviors. Patient was given information on Obsessive-Compulsive Symptoms and ADHD. She was also given OCD and ADHD questionnaire/survey. Patient denied continued self-harm thoughts and is requesting discharge tomorrow. MANAGEMENT PLAN: Patient can continued all medications. She reported that Trazodone was not effective, was ordered Diphenhydramine 50 mg which helped her go to sleep but she was awake after a few hours TIME SPENT: 30 minutes. Vital Signs Vital Signs Date Time Temp Pulse Resp B/P (MAP) Pulse Ox O2 Delivery O2 Flow Rate FiO2 11/24/20 23:20 97.5 66 18 161/83 (109) 98 Room Air Current Medications Current Medications Medications (Trade) Dose Ordered Sig/Christian Route PRN Reason Start Time Stop Time Status Last Admin Dose Admin Acetaminophen (Tylenol Tab) 650 mg Q6HP PRN PO HEADACHE or DISCOMFORT 11/24/20 21:45 11/26/20 11:41 DC 11/26/20 03:30 Al Hydrox/Mg Hydrox/Simethicone (Mylanta) 30 ml Q4HP PRN PO HEARTBURN/INDIGESTION 11/24/20 21:45 Amitriptyline HCl (Elavil) 10 mg QHS PO 11/26/20 21:00 Buspirone HCl (Buspar) 5 mg BID PO 11/25/20 21:00 11/26/20 08:51 Diphenhydramine HCl (Benadryl) 50 mg QHS PO 11/25/20 21:00 11/26/20 12:04 DC 11/25/20 19:52 Diphenhydramine HCl (Benadryl) 75 mg QHS PRN PO INSOMNIA 11/26/20 21:00 Fluvoxamine Maleate (Luvox) 50 mg QHS PO 11/25/20 21:00 11/25/20 19:52 Home Med (Med Rec Complete!) ASDIRECTED XX 11/24/20 21:10 11/24/20 21:18 DC Hydroxyzine HCl (Atarax) 50 mg Q6HP PRN PO ANXIETY 11/25/20 14:55 11/25/20 19:52 Ibuprofen (Advil) 600 mg Q6HP PRN PO MODERATE PAIN (PS 5-7) 11/26/20 11:40 11/26/20 13:39 Levothyroxine Sodium (Synthroid) 224 mcg DAILY@0600 PO 11/25/20 06:00 11/26/20 05:47 Magnesium Hydroxide (Milk Of Magnesia) 30 ml DAILYPRN PRN PO CONSTIPATION 11/24/20 21:45 Nicotine (Nicoderm Cq 21mg) 1 patch DAILY PRN TD NICOTINE WITHDRAWAL 11/24/20 21:45 Olanzapine (ZyPREXA ZYDIS) 5 mg Q4HP PRN PO AGITATION 11/24/20 21:45 11/25/20 00:38 Sumatriptan Succinate (Imitrex) 100 mg BID PRN PO MIGRAINE 11/26/20 05:55 11/26/20 13:38 Trazodone HCl (Desyrel) 50 mg QHSP PRN PO INSOMNIA 11/24/20 21:45 11/26/20 12:04 DC 11/25/20 00:38 Allergies Coded Allergies: cantaloupe (Verified Allergy, Intermediate, swelling, itchy, 11/25/20) cephalexin (Verified Allergy, Intermediate, rash, 02/09/19) melon (Verified Allergy, Intermediate, honeydew - swelling, itchy, 11/25/20) JOSE GARCIA NP Nov 26, 2020 14:05
[2020-11-26] MEDS: fluvoxaMINE MALEATE 50 MG TAB PO SCH (20:25)
[2020-11-26] MEDS ORDERED: diphenhydrAMINE 25MG CAP PO PRN (21:00)
[2020-11-26] MEDS ORDERED: AMITRIPTYLINE 10MG TABLET PO SCH (21:00)
[2020-11-27] MEDS: SUMAtriptan SUCCINATE 25 MG TAB PO PRN (03:27)
[2020-11-27] MEDS: IBUPROFEN 600MG TAB PO PRN (03:28)
[2020-11-27] MEDS: LEVOTHYROXINE 112MCG TABLET (0.112MG) PO SCH (06:00)
[2020-11-27] MEDS: busPIRone 5 MG TAB PO SCH (08:36)
[2020-11-27] MEDS ORDERED: OMEPRAZOLE 20 MG CAP PO SCH (09:00)
[2020-11-27] MEDS ORDERED: HYDR50TA70 PO (09:12)
[2020-11-27] MEDS ORDERED: BUSP5TA PO (09:12)
[2020-11-27] MEDS ORDERED: FLUV50TA PO (09:12)
[2020-11-27] MEDS ORDERED: DIPH25CA32 PO (09:12)
[2020-11-27] MEDS ORDERED: AMIT10TA7 PO (09:12)
--- NOTE | 2020-11-27 10:04 | MHDSPDOC ---
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 States that she thinks she has ADHD. Her brother has it. She states that she has to have a plan for for cleaning. Her tried to help her but he took some of the supplies out of order and this upset her, they argued and he called it dumb and stupid. She reports feeling sad and depressed and says "I lost it." She was going to see her son's Godmother but as she pulled out of the apartment complex, she felt suicidal with no plan and didn't want to be "here" anymore. She called 911 and asked her to take her son. PER ED REPORT: Pt. called police, was at [facility], stated she was having suicidal thoughts, wanted to come to hospital. Pt. reports she has been having marital problems. She reports feeling depressed, spouse gets frustrated with her because he doesn't understand her triggers and he is verbally abusive. Pt. states she grew up in foster care in [place]. She reports she always thoughts she was pretty normal but has been finding out that she has issues with people not doing things the same way that she does. She states this morning she was cleaning and likes to put all the cleaning supplies in each room before she starts cleaning and when her took one of the spray bottles to use it, she became upset because it was no longer where she put it and that upset her process and in turn made her upset. She reports she told her and he call ed her stupid and said "Do you know how stupid that sounds?" Pt. reports it makes her feel very bad about herself and started thinking that she may be better off . Pt. is very tearful during interview. She reports she left the house with her three year old and was going to drive to [facility] to visit a her sons godmother but was crying so much, she couldnt see and pulled into the [facility]. She called her to come and get their son and she called police. She states she has thought of taking an overdose. She reports she did take overdose at age 15 and was admitted to psychiatric facility. She reports she thinks she may have have ADHD due to difficulty concentrating. CONSULTANTS INVOLVED: See Medical H + P by Hospitalist TREATMENT AND PROGRESS ON THE UNIT: Patient was admitted to the [facility] on a legal status he was afforded the following treatment modalities: 1) Individual Therapy 2) Group Therapy 3) Medication Management 4) Milieu Therapy 5) Safe Environment HOSPITAL COURSE: Patient was admitted to [facility] on a . She was complaining of having depressive symptoms over the past week. She and her had a fight over how she didn't want him to disturb her cleaning processes. He was trying to help her clean the house, but as she explain it she has a specific process of lining up the bottles of cleaning products and a specific way she likes to clean. Her tried to help but taking a bottle and cleaning but his upset her and he called her being upset about cleaning "dumb and stupid" as to the way she was acting. She reports that over the years her mother thought that she had ADHD like her younger brother but she didn't feel that she had it as severe as her brother. She states that she felt that her being very particular about cleaning or picking up her house was the way she was personality montoya but she reports that it has not been disruptive to her life. She was agreeable to medications and was started on Luvox 50 mg and Buspirone 5 mg twice daily. Patient also took OCD questionnaire and ADHD questionnaire. She scored quite high on the OCD scale and was moderate on the ADHD scale. She was leaving today and there was not urgency to start her on a medication for ADHD. She was not requesting and is still trying to ascertain whether she actually meets the criteria. I encouraged her to be seen in outpatient and speak to a therapist/psychologist/psychiatrist about this. She was visible on the unit, social with peers and cooperative with the treatment modalities. Patient requested to leave today, hoping to start outpatient services at [facility]. She does not pose a danger to herself and others and is not reporting any self-harm thoughts. She met criteria for discharge today by the treatment team. DISCHARGE ASSESSMENT: I n today's interview, patient is alert and oriented, pts dress is appropriate. Hygiene and grooming is well-kempt. Smiles on approach and is pleasant and engaged in the interview. Denies depression and anxiety. Denies suicidal and homicidal ideation, planning or intent. Denies and is not observed with gopal, psychotic symptoms of delusions, bizarre thinking, obsessions, paranoia, ruminations illogical thoughts, flight of ideas or having poor insight and judgement. Patient has normal mentation, declines further hospitalization on a voluntary status and meets criteria for discharge today. Patient encouraged to return to hospital if his symptoms worsen or change and encouraged to call unit if he/she/they needs to speak to provider for questions regarding medications or care. 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 She was reporting feeling frustrated and overwhelmed with her who was having difficulty understanding her need for order and task oriented processes. She is dressed appropriately in her own clothes and maintains good eye contact. Speech: Is fluid, conversant, normal rate, tone and volume Language skills are intact Thought processes including: linear and goal oriented Thought content: denies depression and anxiety. Denies suicidal/homicidal ideation, planning or intent. Abstract reasoning, and computation: fair Description of associations: denies, none observed Description of abnormal or psychotic thoughts: denies, none observed. Judgment: good Insight: good Orientation: alert and oriented to person, place, time and situation Recent and remote memory: intact Attention span and concentration: good Language: expansive Fund of knowledge: average Mood: Euthymic Mood Affect: reactive MEDICATIONS ON DISCHARGE: See Medication PLAN/FOLLOWUP ARRANGEMENTS: [facility] The amount of time spent in the coordination of care for this patient was approximately 25 minutes. ETOH/Disorder Med Rx ETOH/DRUG DISORDER RX: N/A Vital Signs/I&Os Vital Signs Date Time Temp Pulse Resp B/P (MAP) Pulse Ox O2 Delivery O2 Flow Rate FiO2 11/24/20 23:20 97.5 66 18 161/83 (109) 98 Room Air Medications Scheduled Amitriptyline HCl (Amitriptyline HCl) 10 Mg Tablet, 10 MG PO QHS for migraines , #7 Buspirone HCl (Buspirone HCl) 5 Mg Tablet, 5 MG PO BID for anxiety, #14 Clotrimazole (Clotrimazole) 1% 30GM Cream..g., 1 DOSE TOP DAILY, (Reported) APPLY TO RASH ON STOMACH AFTER SHOWER Fluvoxamine Maleate (Fluvoxamine Maleate) 50 Mg Tablet, 50 MG PO QHS for mood, #7 Levothyroxine Sodium (Levothyroxine Sodium) 112 Mcg Tablet, 224 MCG PO DAILY, (Reported) Omeprazole (Omeprazole) 20 Mg Capsule.dr, 40 MG PO DAILY, (Reported) Scheduled PRN Diphenhydramine HCl (Diphenhydramine HCl) 25 Mg Capsule, 75 MG PO QHS PRN for INSOMNIA, #21 Hydroxyzine HCl (Hydroxyzine HCl) 50 Mg Tablet, 50 MG PO BIDP PRN for ANXIETY, #14 Ibuprofen (Ibuprofen) 800 Mg Tablet, 800 MG PO BID PRN for HEADACHE, (Reported) Sumatriptan Succinate (Imitrex) 100 Mg Tablet, 100 MG PO BID PRN for MIGRAINE, (Reported) Allergies Coded Allergies: cantaloupe (Verified Allergy, Intermediate, swelling, itchy, 11/25/20) cephalexin (Verified Allergy, Intermediate, rash, 02/09/19) melon (Verified Allergy, Intermediate, honeydew - swelling, itchy, 11/25/20) JOSE GARCIA NP Nov 27, 2020 10:04
== END 2020-11-27 11:20 | disposition home or self-care (01) | DRG 881 ==
LOC: M ED 15:32 → M ED INP 15:33 → M PSY 23:44
PROVIDERS: ADMIT Psychiatry & Neurology Psychiatry; ATTEND Psychiatry & Neurology Psychiatry
DX: F32.9 Major depressive disorder, single episode, unspecified (principal); R45.851 Suicidal ideations; F41.1 Generalized anxiety disorder; F41.0 Panic disorder [episodic paroxysmal anxiety]; E89.0 Postprocedural hypothyroidism; G47.00 Insomnia, unspecified; F42.9 Obsessive-compulsive disorder, unspecified; E66.01 Morbid (severe) obesity due to excess calories; G43.909 Migraine, unspecified, not intractable, without status migrainosus; Z98.84 Bariatric surgery status; Z88.1 Allergy status to other antibiotic agents; Z91.018 Allergy to other foods; Z20.822 Contact with and (suspected) exposure to COVID-19; Z91.5 Personal history of self-harm; Z79.899 Other long term (current) drug therapy